=== PATIENT | female | born 1935 | race Caucasian/White ===

== ENCOUNTER 2017-05-11 10:50 | Inpatient (IN) | payer MEDICARE, BC ==
[~2017-05-11] VITALS: Ht 165.1 cm; Wt 96.4 kg
[~2017-05-11 10:50] MED LIST: ASPI-799 PO; ATOR40TA21 PO; CHOL500010 PO; GLUC1CAP40 PO; LAS20 PO; PARI1CAP7 PO; PIOG15TA12 PO; POTA10TA97 PO; VALS80TA2 PO
[2017-05-11] MEDS ORDERED: FUROSEMIDE 40 MG INJ IV STA (11:21)
[2017-05-11] MEDS ORDERED: NITROGLYCERIN 2% 1 GM OINT PKT TD STA (11:21)
[2017-05-11] MEDS: ASPIRIN 81 MG TAB PO ONE ×2 (11:58→12:12)
[2017-05-11 12:01] LABS: ABNORMAL IP MESSAGE 1; BASOPHIL # 0.1 10^3/ul (0.0-0.1); BASOPHILS % 0.4 % (0.0-2.0); EOSINOPHILS # 0.1 10^3/ul (0.0-0.5); EOSINOPHILS % 0.6 % (0.0-7.0); HEMATOCRIT 26.3 % (37.0-47.0); HEMOGLOBIN 8.4 g/dl (12.0-16.0); LYMPHOCYTES # 0.5 10^3/ul (0.8-2.9); LYMPHOCYTES % 4.6 % (15.0-51.0); MEAN CORPUSCULAR HGB CONC 31.9 g/dl (32.0-37.0); MONOCYTES % 8.8 % (0.0-11.0); NEUTROPHIL # 9.9 10^3/ul (1.6-7.5); PLATELET COUNT 237 10^3/UL (140-415); RED BLOOD COUNT 2.71 10^6/ul (4.20-5.40); RED CELL DISTRIBUTION WIDTH 14.5 % (11.5-14.5); WHITE BLOOD COUNT 11.8 10^3/ul (4.8-10.8)
[2017-05-11] MEDS ORDERED: VALS160T20 PO (12:09)
[2017-05-11] MEDS ORDERED: ALLO100T PO (12:09)
[2017-05-11] MEDS ORDERED: ADV25050 INHALATION (12:10)
[2017-05-11] MEDS ORDERED: CHOL100062 PO (12:10)
[2017-05-11 12:15] LABS: INR 1.27; PT RATIO 1.3
[2017-05-11 12:16] LABS: PARTIAL THROMBOPLASTIN TIME 43.5 Sec (25.0-35.0)
[2017-05-11 12:20] LABS: CREATININE 3.01 mg/dl (0.44-1.00); POTASSIUM 4.4 mmol/L (3.5-5.1)
[2017-05-11 12:32] LABS: TROPONIN-I 0.015 ng/ml (0.00-0.12)
--- NOTE | 2017-05-11 13:07 | RADRPT ---
PROCEDURE: XR Chest. CLINICAL INDICATION: Shortness of breath TECHNIQUE: Single portable view of the chest was obtained COMPARISON: No priors for comparison FINDINGS: The trachea is slightly deviated towards of the right. The cardiac silhouette is enlarged. There are bilateral chronic lung changes. Right lower lobe opacification is noted with probable small right p leural effusion. Soft tissue density enlargement of right perihilar region and right cardiac border is noted. Bilateral breast implants are noted. IMPRESSION: 1. Cardiomegaly and prominence of the right hilar region and right pericardial region. There may be underlying atrial enlargement. Consider follow-up CT scan of the chest. 2. Right lower lobe opacification; pneumonia versus atelectasis and small right pleural effusion. RPTAT: AAPP Physician Felipa Date Time Electronically viewed and signed by Physician Felipa on 05/11/2017 13:06 SAMUEL/
[2017-05-11] MEDS ORDERED: ONDANSETRON 4 MG INJ IV PRN (13:30)
[2017-05-11] MEDS ORDERED: ACETAMINOPHEN 325 MG TAB PO PRN (13:30)
[2017-05-11] MEDS ORDERED: CEFTRIAXONE 1 GM/50 ML (PMX) 50 ML IVPB ONE (13:30)
--- NOTE | 2017-05-11 13:40 | ERD ---
ER Documentation Chief Complaint Chief Complaint SOB [id number] S/P FLU VACCINE HPI Patient is an 82-year-old female with anemia, hypertension, and diabetes who presents with shortness of breath. She was brought in by ambulance. She said that she get a flu shot 2 weeks ago and ever since then she has gotten worse. She saw her primary doctor on Sunday who wanted her to get a chest x-ray but she has not gotten a chest x-ray as of yet. Her hemoglobin was 8.8 at that time. She has a history of a cardiac stent and had an EKG done that day but her EKG was okay per the doctor. The patient was told she has a UTI but was not given antibiotics as of yet. The patient is speaking in full sentences but says that she is always tired and gets short of breath with even minimal exertion like walking a few steps. Upon review of old medical records the patient one previous visit to the ER in 2012. ROS All systems reviewed and are negative except as per history of present illness. Medications Home Meds Reported Medications Cholecalciferol* (Vitamin D3*) 1,000 Unit Tablet, 1000 UNIT PO DAILY, TAB 05/11/17 Salmeterol Xinaf/Fluticasone* (Advair*) 250-50 Diskus Inhaler, 1 INH INHALATION BID, #1 INHALER 05/11/17 Valsartan* (Diovan*) 160 Mg Tablet, 160 MG PO DAILY, TAB 05/11/17 Allopurinol* (Allopurinol*) 100 Mg Tablet, 100 MG PO DAILY, TAB 05/11/17 Furosemide (Lasix) 20 Mg Tab, 20 MG PO DAILY 10/20/12 Aspirin/Calcium Carbonate/Mag (Aspir-Mox 325 Mg Tablet) 325 Mg Tablet, 325 MG PO DAILY 10/20/12 Atorvastatin (Lipitor) 40 Mg Tablet, 40 MG PO DAILY 10/20/12 Pioglitazone Hcl* (Actos*) 15 Mg Tablet, 15 MG PO DAILY 10/20/12 Discontinued Reported Medications Paricalcitol* (Zemplar*) 1 Mcg Cap, 1 MCG PO DAILY 10/20/12 Cholecalciferol (Vitamin D3) 5,000 Unit Tablet, 5000 UNIT PO DAILY 10/20/12 Potassium Chloride (Klor-Con) 10 Meq Tablet.sa, 10 MEQ PO DAILY 10/20/12 Glucosa Welsh 2KCL/Chondroitin Welsh (Glucosamine & Chondroitin Cap) 1 Cap Capsule, 1 CAP PO DAILY 10/20/12 Valsartan* (Diovan*) 80 Mg Tablet, 240 MG PO DAILY 10/20/12 Allergies Allergies: Coded Allergies: Sulfa (Sulfonamide Antibiotics) (Verified Allergy, Intermediate, RASH, ) clopidogrel (Verified Allergy, Unknown, 05/11/17) vancomycin (Verified Allergy, Unknown, 05/11/17) PMhx/Soc History of Surgery: Yes (SHOULDER FRACTURE, TITANIUM IN R ELBOW) Anesthesia Reaction: No Hx Neurological Disorder: No Hx Respiratory Disorders: Yes (ASTHMA) Hx Cardiac Disorders: Yes (HTN, STENT, WIDOWERS SYNDROME, ) Hx Psychiatric Problems: No Hx Miscellaneous Medical Probl: Yes (DM, ) Hx Alcohol Use: No Hx Substance Use: No Hx Tobacco Use: No Smoking Status: Never smoker FmHx Family History: diabetes Physical Exam Vitals Vital Signs Date Time Temp Pulse Resp B/P Pulse Ox O2 Delivery O2 Flow Rate FiO2 05/11/17 12:30 88 18 103/87 97 Room Air 05/11/17 11:25 Nasal Cannula 2.0 05/11/17 11:25 Nasal Cannula 2 05/11/17 11:15 98.7 90 22 108/85 99 Physical Exam Const: Moderate distress Head: Atraumatic Eyes: Normal Conjunctiva ENT: Normal External Ears, Nose and Mouth. Neck: Full range of motion..~ No meningismus. Resp: Decreased breath sounds bilaterally Cardio: Regular rate and rhythm, no murmurs Abd: Soft, non tender, non distended. Normal bowel sounds Skin: No petechiae or rashes Back: No midline or flank tenderness Ext: 3+ pitting edema bilaterally Neur: Awake and alert Psych: Normal Mood and Affect Result Diagram: 05/11/17 1150 05/11/17 1150 Results 24 hrs Laboratory Tests Test 05/11/17 11:50 White Blood Count 11.810^3/ul Red Blood Count 2.7110^6/ul Hemoglobin 8.4g/dl Hematocrit 26.3% Mean Corpuscular Volume 97.0fl Mean Corpuscular Hemoglobin 31.0pg Mean Corpuscular Hemoglobin Concent 31.9g/dl Red Cell Distribution Width 14.5% Platelet Count 39055^3/UL Mean Platelet Volume 12.0fl Neutrophils % 84.0% Lymphocytes % 4.6% Monocytes % 8.8% Eosinophils % 0.6% Basophils % 0.4% Nucleated Red Blood Cells % 0.0/100WBC Neutrophils # 9.910^3/ul Lymphocytes # 0.510^3/ul Monocytes # 1.010^3/ul Eosinophils # 0.110^3/ul Basophils # 0.110^3/ul Nucleated Red Blood Cells # 0.010^3/ul Prothrombin Time 16.0Sec Prothrombin Time Ratio 1.3 INR International Normalized Ratio 1.27 Activated Partial Thromboplast Time 43.5Sec Sodium Level 137mmol/L Potassium Level 4.4mmol/L Chloride Level 101mmol/L Carbon Dioxide Level 22mmol/L Anion Gap 18 Blood Urea Nitrogen 85mg/dl Creatinine 3.01mg/dl Glucose Level 145mg/dl Calcium Level 9.0mg/dl Troponin I 0.015ng/ml B-Type Natriuretic Peptide 2950PG/ML Current Medications Medications (Trade) Dose Ordered Sig/John Route PRN Reason Start Time Stop Time Status Last Admin Dose Admin Furosemide (Lasix) 40 mg ONCE STAT IV 05/11/17 11:21 05/11/17 11:24 DC 05/11/17 11:58 Aspirin (Aspirin) 162 mg ONCE ONCE PO 05/11/17 11:30 05/11/17 11:31 DC Nitroglycerin (Nitroglycerin 2% Oint) 1 inch ONCE STAT TD 05/11/17 11:21 05/11/17 11:24 DC 05/11/17 11:58 Ondansetron HCl (Zofran Inj) 4 mg ER BRIDGE PRN IV NAUSEA AND/OR VOMITING 05/11/17 13:30 05/12/17 13:29 Acetaminophen 650 mg 650 mg ER BRIDGE PRN PO MILD PAIN/FEVER 05/11/17 13:30 05/12/17 13:29 Ceftriaxone Sodium (Rocephin) 50 ml @ 100 mls/hr ONCE ONCE IVPB 05/11/17 13:30 05/11/17 13:59 05/11/17 13:30 Procedures/MDM Chest x-ray shows pneumonia versus pleural effusion per radiology. EKG read by me: Rate/Rhythm: Regular rate and rhythm at a normal rate Intervals: Normal Impression: No evidence of ischemia or arrhythmia Patient is a 82-year-old female presents with shortness of breath with minimal exertion. Her lung sounds are decreased and she has bilateral lower extreme knee swelling and her symptoms are most consistent with acute congestive heart failure. Her BNP is elevated as well going along with this diagnosis. She has anemia with a hemoglobin of 8.4 but does not require transfusion at this time. She says that she does have a history of kidney disease and her BUN and creatinine are 85 and 3.01. I doubt pneumonia at this time. The patient was given Lasix IV and aspirin by mouth. The patient will be admitted to the care of Dr. Esposito from the panel team to a telemetry bed. Departure Diagnosis: Primary Impression: CHF exacerbation Congestive heart failure type: unspecified congestive heart failure type Qualified Code: I50.9 - Acute on chronic congestive heart failure, unspecified congestive heart failure type Additional Impressions: Shortness of breath Cystitis Condition: ASHLY Veliz MD May 11, 2017 13:40
[2017-05-11 14:02] VITALS: BP 94/50; RESP 16
[2017-05-11 14:07] VITALS: PULSE 81
[2017-05-11 14:43] LABS: ADD UMIC YES; UR ASCORBIC ACID NEGATIVE (NEGATIVE); UR BACTERIA FEW /HPF (NONE SEEN); UR BILIRUBIN (Dip) NEGATIVE (NEGATIVE); UR BLOOD (Dip) NEGATIVE (NEGATIVE); UR BUDDING YEAST FEW /HPF (NONE SEEN); UR CLARITY CLOUDY (CLEAR); UR COLOR AMBER (YELLOW); UR GLUCOSE (Dip) NEGATIVE (NEGATIVE); UR KETONES (Dip) NEGATIVE (NEGATIVE); UR LEUKOCYTE ESTERASE (Dip) 2+ Leu/ul (NEGATIVE); UR MUCUS FEW /HPF (NONE SEEN); UR NITRITE (Dip) NEGATIVE (NEGATIVE); UR RBC 1 /HPF (0-5); UR SPECIFIC GRAVITY (Dip) 1.015 (1.003-1.030); UR SQUAMOUS EPITHELIAL CELL FEW /HPF (FEW); UR TOTAL PROTEIN (Dip) 2+ mg/dl (NEGATIVE); UR UROBILINOGEN (Dip) 2+ mg/dL (NEGATIVE)
--- NOTE | 2017-05-11 15:06 | HP ---
Date/Time of Note Date/Time of Note DATE: 05/11/17 TIME: 14:56 Assessment/Plan VTE Prophylaxis VTE Prophylaxis Intervention: heparin, LMWH Lines/Catheters IV [facility] Saline Lock Urinary Cath still in place: No Assessment/Plan Chief Complaint/Hosp Course 82 yo female with h/o chronic systlolic CHF, CKD II, MDS, DMII, obesity with acute systolic CHF exacerbation, BIRGIT and pericardial effusion with pre-[facility] report concerning for tamponade CHF: - Patient is grossly overloaded but will hold further diuretics until tamponade is excluded - Dr Castillo consulted Pericardial effusion: - Likely from total body overload, but perhaps this is pericarditis, seems to have had a viral prodrome - Less likely rheumatologic or malignant, but certainly considerations. 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 Shortly thereafter she developd flu like symptosm with cough, congestion, body aches. These symptoms have gradually subsided but she has developed progressive edema and SOB since then. She is cared for in the [facility] system and had outpatient CXR ordered there, however today was so SOB she called 911 and was taken here. SOB is present on ambulation but generally feels well at rest. No CP or angina. No cough or sputum production. PMH/Family/Social Past Medical History Medical History: congestive heart failure, coronary artery disease, diabetes Family History Significant Family History: heart disease Social History Alcohol Use: none Smoking Status: Never smoker Drug Use: none Exam/Review of Systems Vital Signs Vitals Vital Signs Date Time Temp Pulse Resp B/P Pulse Ox O2 Delivery O2 Flow Rate FiO2 05/11/17 12:30 88 18 103/87 97 Room Air 05/11/17 11:25 2.0 05/11/17 11:15 98.7 Exam Exam Comfortable appearing, NAD, AOx3 Very talkative, no respiratory distress CV: RRR, ++ JVD Lungs clear Abdomen obese, soft, nt R knee surgical scar Legs with edema to calves bl Labs Result Diagram: 05/11/17 1150 05/11/17 1150 Medications Medications Current Medications Ceftriaxone Sodium (Rocephin) 50 ml @ 100 mls/hr ONCE ONCE IVPB Last administered on 05/11/17t 13:30; Admin Dose 100 MLS/HR; Start 05/11/17 at 13: 30; Stop 05/11/17 at 13:59 TAWANA DALY MD May 11, 2017 15:06
[2017-05-11 15:13] VITALS: BP 101/65; RESP 16
[2017-05-11] MEDS ORDERED: NACL 0.9% 3 ML SYG IV SCH (15:30)
--- NOTE | 2017-05-11 16:17 | RADRPT ---
Echocardiogram Report Patient Name: MIKA TAMAYO Gender: Female Date: 1935 Study Date: 11-May-2017 Short Goods Drier: Amena [facility] Location: 522-A Ref. Physician: TAWANA DALY Quality: Technically Difficult Study Procedures: Transthoracic echocardiogram with complete 2D, M-Mode, and doppler examination. Indications: Congestive Heart Failure. 2D/M Mode Doppler Measurement Value Normal Ranges Measurement Value Normal Ranges LVIDd 2D 4.1 3.5 - 5.6 cm AV Peak Nguyễn 1.5 m/sec LVIDs 2D 2.7 2.1 - 4.1 cm AV Peak PG 9.0 mmHg FS 2D 32.9 % LVOT Peak Nguyễn 1.5 m/sec LVPWd 2D 1.4 0.6 - 1.1 cm LVOT Peak PG 8.0 mmHg IVSd 2D 1.4 0.6 - 1.1 cm MV E Peak Nguyễn 0.8 m/sec IVS/LVPW 2D 1.0 MV A Peak Nguyễn 1.1 m/sec AoR Diam 2D 2.7 2.0 - 3.7 cm MV E/A 0.7 LA/Ao 2D 1 0 - 1 MV Decel Time 211 msec EDV 2D 67.4 cm3 MV E/A 0.7 ESV 2D 20.3 cm3 TR Peak Nguyễn 2.0 m/sec LA Dimen 2D 4.0 2.3 - 4.0 cm TR Peak PG 16.0 mmHg RVSP 31.0 mmHg Findings Left Ventricle: Normal left ventricular systolic function. Normal left ventricular cavity size. Mild concentric left ventricular hypertrophy. Ejection fraction is visually estimated at 6065 %. Abnormal Diastolic Function. Right Ventricle: Not well visualized. Left Atrium: The left atrium is normal in size. Right Atrium: The right atrium is normal in size. Mitral Valve: Mild mitral leaflet calcification. Mild mitral annular calcification. Trace mitral regurgitation. Aortic Valve: No significant aortic stenosis or insufficiency. Aortic valve not well visualized. Tricuspid Valve: Normal appearance of the tricuspid valve. Estimated peak PA systolic pressure 31 mmHg. There is mild tricuspid regurgitation. Pulmonic Valve: Pulmonic valve not well visualized. There is trace pulmonic regurgitation. Pericardium: Moderate to large pericardial effusion. Dilated IVC with decreased respiratory variation consistent with elevated right atrial pressure. Aorta: Normal aortic root. IVC: Dilated inferior vena cava with poor inspiratory collapse consistent with elevated right atrial pressures. Conclusions 1.Normal left ventricular systolic function. Normal left ventricular cavity size. Mild concentric left ventricular hypertrophy. Ejection fraction is visually estimated at 60-65 %. Abnormal Diastolic Function. 2.Mild mitral leaflet calcification. Mild mitral annular calcification. Trace mitral regurgitation. 3.Normal appearance of the tricuspid valve. Estimated peak PA systolic pressure 31 mmHg. There is mild tricuspid regurgitation. 4.Pulmonic valve not well visualized. There is trace pulmonic regurgitation. 5.Moderate to large pericardial effusion. Dilated IVC with decreased respiratory variation consistent with elevated right atrial pressure. 6.On limited images patient with possible late diastolic RA invagination which is an early sign of echo tamponade. Electronically Signed By: Gibran Castillo 11-May-2017 16:16:24 -0700 Patient Name: MIKA TAMAYO Study Date: 11-May-2017 [id number]
[2017-05-11 16:49] VITALS: PULSE 79
[2017-05-11 17:00] VITALS: Ht 165.1 cm; Wt 96.4 kg
--- NOTE | 2017-05-11 18:00 | RADRPT ---
PROCEDURE: Renal US. CLINICAL INDICATION: Renal dysfunction. TECHNIQUE: Multiple sonographic images of the kidneys and urinary bladder were obtained. The imag es were reviewed on a PACS workstation. COMPARISON: No prior studies are available for comparison. FINDINGS: The right kidney measures 9.1 x 5.3 x 5.3 cm. The left kidney measures 10.5 x 4.9 x 5.2 cm. There is no solid renal mass. There are benign left renal cysts with the largest measuring 3.7 x 3.4 x 3.9 cm. There is no hydronephrosis. There is no renal calculus. Renal parenchymal thickness is normal bilaterally. Echogenicity is normal bilaterally. The perirenal regions are normal with no fluid collection or mass. The urinary bladder is not visualized. IMPRESSION: 1. Benign left renal cysts. 2. No hydronephrosis. 3. Urinary bladder is not visualized. 4. Otherwise unremarkable study. RPTAT: QQ .Felipe Salinas MD, Date Time Electronically viewed and signed by .Felipe Salinas MD, on 05/11/2017 18:00 .R/
[2017-05-11 19:09] LABS: CK-MB 0.9 ng/ml (0.0-2.4); TROPONIN-I 0.017 ng/ml (0.00-0.12)
[2017-05-11 20:00] VITALS: PULSE 86
[2017-05-11 20:25] VITALS: BP 109/58; RESP 18
[2017-05-11] MEDS: HEPARIN 5,000 UNIT/0.5 ML VIAL SC SCH (22:00)
[2017-05-11] MEDS: HYDROCODONE/APAP (5/325) TAB PO PRN (23:00)
[2017-05-12] VITALS (10 sets, daily range): BP systolic 98–118; BP diastolic 53–60; PULSE 70–95; RESP 16–20
--- NOTE | 2017-05-12 00:54 | CONS ---
DATE OF ADMISSION: 05/11/2017 DATE OF CONSULTATION: 05/11/2017 REASON FOR CONSULTATION: Pericardial effusion, shortness of breath, assess significance. REQUESTING PHYSICIAN: Dr. Taylor from the hospitalist service. HISTORY OF PRESENT ILLNESS: Ms. Klein is an 82-year-old female with a history of congestive heart f ailure, systolic by chart biopsy, chronic kidney disease not on dialysis, myelodysplastic syndrome, diabetes mellitus, obesity who presents with complaints of worsening shortness of breath. The constantino grover states she has received the flu shot and approximately 3 weeks later and since that time has had multiple joint aches and shortness of breath, and worsening. The patient subsequently presented her e to the emergency department. Upon arrival, temperature 98.7, blood pressure 108/85, pulse 96.2, s aturating 99%. The patient's labs revealed sodium 137, potassium 4.4, creatinine of 3, BUN of 85. BNP of 2950. INR 1.27. White count 11.8, hemoglobin 8.4, platelet count 237. UA positive. The rajan steinberg underwent a chest x-ray revealing cardiomegaly and prominence of the right hilar region and ri ght pericardial region, right lower lobe opacification. The patient's electrocardiogram revealed no rmal sinus rhythm at 87 with low voltage throughout, nonspecific ST and T-wave abnormalities. Constantino grover has been admitted to floor and had a prelim echo that was noted to have a significant effusion; t herefore, cardiology consultation requested. PAST MEDICAL HISTORY: As above in HPI. MEDICATIONS CURRENTLY IN HOSPITAL: 1. Heparin 5000 subQ q.8. 2. Ambien p.r.n. 3. Rutledge p.r.n. ALLERGIES: 1. SULFA. 2. PLAVIX. 3. VANCOMYCIN. SOCIAL HISTORY: No tobacco, ETOH or illicit drug use. FAMILY HISTORY: No history of cardiac or early CAD. REVIEW OF SYSTEMS: As above in HPI. CONSTITUTIONAL: No fevers, chills. PULMONARY: Shortness of breath. CARDIOVASCULAR: Congestive heart failure and pericardial effusion in. GASTROINTESTINAL: No vomiting. GENITOURINARY: Renal failure. PSYCHIATRIC: No documented psych history. NEUROLOGIC: No documented CVA. ENDOCRINE: Diabetes mellitus. PHYSICAL EXAMINATION: VITAL SIGNS: Temperature 98.7, blood pressure 101/65, pulse 75, respirations 16, saturating 96%. GENERAL: The patient is alert, awake, complaining of mild shortness of breath. NECK: JVP approximately 10 cm of water. CHEST: Decreased breath sounds at the bases bilaterally, right greater than left. HEART: Regular rate and rhythm. Normal S1, S2, I/ systolic murmur, nondisplaced PMI. ABDOMEN: Positive bowel sounds, soft, obese. EXTREMITIES: 3+ edema bilaterally. Difficult to palpate distal pulses bilaterally likely due to ed deirdre. LABORATORY DATA: As above in HPI. No further labs for my review at this time. IMAGING STUDIES: As above in HPI. No further imaging studies for my review at this time. ECG: As above in HPI. No further electrocardiograms for my review at this time. IMPRESSION: 1. Pericardial effusion by 2D echo to assess significance. 2. Shortness of breath, likely a combination of possible pneumonia as well as volume overload, edgar estive heart failure and pericardial effusion. 3. Hypertension, borderline. 4. Abnormal electrocardiogram with low voltage consistent with the patient's pericardial effusion. 5. Generalized body aches, question viral syndrome. 6. Diabetes mellitus. 7. Renal failure, acute on chronic. 8. Anemia. 9. Leukocytosis. 10. Urinary tract infection. RECOMMENDATIONS: 1. At this time, would maintain patient on telemetry monitoring to follow rhythm and rate control c losely. 2. We will review the patient's 2D echo to assess for significant effusion and need for pericardioc entesis. 3. Would consult nephrology, possible need for dialysis, possible it could be uremic infusion. It looks like it possibly could be due to any type of viral syndrome and subsequent pericarditis. The patient is not really giving me symptoms for that, and additionally, the patient could be having a a utoimmune syndrome with general multiple muscle aches and pericardial effusion. 4. Would likely resume the patient's Lasix diuresis, but follow creatinine closely. 5. Will complete a rule out for myocardial infarction to ensure this patient's shortness of breath is not due to any acute coronary syndrome versus acute myocardial infarction with patient saying chetna t she has had prior stenting 10 years prior. 6. Follow the patient's blood pressure closely. 7. Would consider initiation of antibiotics for treatment of possible pneumonia and check culture d jacobo. Thanks for letting me take part in the care of this patient. I will continue to follow very closely with you with further recommendations to be made as the patient progresses through her inpatient ho spital clinical course. Dictated By: JOSLYN FAIRBANKS/DEBORAH Conf#: [id number] DID#: [id number] CC: HIEU WATSON MD;*EndCC*
[2017-05-12] MEDS: ALBUTEROL/IPRATROPIUM (NEB) 3 ML AMP HHN PRN ×2 (01:00→20:13)
[2017-05-12 01:37] LABS: CK-MB 1.15 ng/ml (0.0-2.4); TROPONIN-I 0.017 ng/ml (0.00-0.12)
[2017-05-12] MEDS: HEPARIN 5,000 UNIT/0.5 ML VIAL SC SCH ×3 (06:05→21:35)
[2017-05-12 06:53] LABS: BASOPHIL # 0.1 10^3/ul (0.0-0.1); BASOPHILS % 0.5 % (0.0-2.0); EOSINOPHILS # 0.2 10^3/ul (0.0-0.5); EOSINOPHILS % 1.8 % (0.0-7.0); HEMATOCRIT 23.7 % (37.0-47.0); HEMOGLOBIN 7.3 g/dl (12.0-16.0); LYMPHOCYTES # 0.9 10^3/ul (0.8-2.9); LYMPHOCYTES % 9.1 % (15.0-51.0); MEAN CORPUSCULAR HGB CONC 30.8 g/dl (32.0-37.0); MEAN CORPUSCULAR VOLUME 97.5 fl (82.0-101.0); MEAN PLATELET VOLUME 11.8 fl (7.4-10.4); MONOCYTE # 0.9 10^3/ul (0.3-0.9); NEUTROPHILS % 78.2 % (39.0-77.0); PLATELET COUNT 142 10^3/UL (140-415); RED BLOOD COUNT 2.43 10^6/ul (4.20-5.40); RED CELL DISTRIBUTION WIDTH 14.5 % (11.5-14.5); WHITE BLOOD COUNT 10.2 10^3/ul (4.8-10.8)
[2017-05-12] MEDS ORDERED: GUAIFENESIN/DM 5ML CUP PO ONE (07:00)
[2017-05-12 07:40] LABS: IRON 28 ug/dl (35-150)
[2017-05-12 07:43] LABS: ALBUMIN 3.3 g/dl (3.3-4.9); BILIRUBIN,INDIRECT 0.2 mg/dl (0-1.1); BILIRUBIN,TOTAL 0.2 mg/dl (0.2-1.3); CREATININE 3.64 mg/dl (0.44-1.00); POTASSIUM 4.5 mmol/L (3.5-5.1); TOTAL PROTEIN 6.6 g/dl (6.1-8.1)
[2017-05-12 07:52] LABS: TOTAL IRON BINDING CAPACITY 219 ug/dl (241-421)
[2017-05-12 07:55] LABS: THYROID STIMULATING HORMONE 3.33 MIU/L (0.465-4.680)
[2017-05-12 08:00] LABS: T3 UPTAKE 39.6 % (23.5-40.5)
[2017-05-12] MEDS ORDERED: BUMETANIDE 1 MG TAB PO SCH ×2 (10:30→18:00)
[2017-05-12] MEDS ORDERED: ALBUMIN HUMAN 25% 100 ML IV STA (13:23)
[2017-05-12] MEDS ORDERED: FUROSEMIDE 40 MG INJ IV STA (13:23)
--- NOTE | 2017-05-12 13:31 | CONS ---
Date/Time of Note Date/Time of Note DATE: 05/12/17 TIME: 13:29 Assessment/Plan Assessment/Plan Additional Assessment/Plan 1. 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 acute CHF exacerbation, acute on chronic, Systolic and diastolic 3. 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 h/o HTN 5. H/o DM II 6. H/o HL 7. Anemia of CKD< with iron deficiency Plan: pt has acute Kidney injury on CKD with worsening uremia renal US c/w medical renal disease will give IV albumin + lasix for diuresis, pt is near term HD patient, currently concerned is that uremia is causing pericardial effusion and possible Temponade, She has been explaineda bout this and need of HD but she dose not want to have HD and she also cardiologiy to wait for pericardiocentesis, she wants to wait and see How Lasix and ALbumin duresis works. She has been explained about risks of heart arrythmisa snd she understood and verbalized undestanding if no improvement in Renal function by tomorrow AM then plan for HD initiaiton will consult for HD catheter Uric acid IV iron for anemia Uric acid with am labs Lasix 40mg iV BID with diuresis Thanks for consultation, we will conitnue to follow up on patient Consultation Date/Type/Reason Admit Date/Time 05/12/2017 Date of Consultation: May 12, 2017 Type of Consultation: NEPHROLOGY Reason for Consultation Acute uremia, Worsening renal failure, fluid overload, uremia, with moderate pericardial effusion Referring Provider: TAWANA DALY MD Hx of Present Illness 82 yo female with h/o chronic systlolic CHF, CKD II, MDS, DMII, obesity with acute systolic CHF exacerbation, BIRGIT and pericardial effusion with pre-[facility] report concerning for tamponade, pt is noted to have elevated BUN and Creatinine and conerned about pericardial effusion due to uremia.BUN 101. Renal has been consulted for it. Constitutional: no complaints Eyes: no complaints ENT: congestion Respiratory: pleuritic pain, shortness of breath Cardiovascular: no complaints Gastrointestinal: no complaints Genitourinary: no complaints Musculoskeletal: no complaints Skin: no complaints Neurologic: no complaints Endocrine: no complaints Lymphatic: no complaints Psychological: no complaints Past Medical History Medical History: congestive heart failure, coronary artery disease, diabetes Past Surgical History Past Surgical Hx: no surgical history Family History Significant Family History: no pertinent family hx Social History Alcohol Use: none Smoking Status: Never smoker Drug Use: none Exam/Review of Systems Vital Signs Vitals Vital Signs Date Time Temp Pulse Resp B/P Pulse Ox O2 Delivery O2 Flow Rate FiO2 05/12/17 12:11 70 05/12/17 11:17 97.7 18 98/54 97 05/12/17 08:00 Nasal Cannula 2.0 Intake and Output 05/11/17 05/11/17 05/12/17 15:00 23:00 07:00 Intake Total 320 ml 400 ml Output Total 300 ml 850 ml Balance 20 ml -450 ml Exam Constitutional: alert Psych: no complaints Head: normocephalic Eyes: nl conjunctiva ENMT: nl external ears & nose Neck: jvd, supple Respiratory: crackles/rales, diminished breath sounds Cardiovascular: edema, nl pulses, regular rate and rhythm Gastrointestinal: non-tender, other (non distended ), soft Musculoskeletal: muscle weakness, range of motion Extremities: calf tenderness Neurological: MACHINIST WOOD II-XII intact, nl mental status, nl speech, nl strength Results Result Diagram: 05/12/1712 05/12/17 0612 Results 24 hrs Laboratory Tests Test 05/11/17 18:17 05/12/17 00:23 05/12/17 06:12 Creatine Kinase 50 56 Creatine Kinase Index 1.8 2.1 Creatinine Kinase MB (Mass) 0.90 1.15 Troponin I 0.017 0.017 White Blood Count 10.2 Red Blood Count 2.43 L Hemoglobin 7.3 L Hematocrit 23.7 L Mean Corpuscular Volume 97.5 Mean Corpuscular Hemoglobin 30.0 Mean Corpuscular Hemoglobin Concent 30.8 L Red Cell Distribution Width 14.5 Platelet Count 142 # Mean Platelet Volume 11.8 H Neutrophils % 78.2 H Lymphocytes % 9.1 L Monocytes % 9.0 Eosinophils % 1.8 Basophils % 0.5 Nucleated Red Blood Cells % 0.0 Neutrophils # 8.0 H Lymphocytes # 0.9 Monocytes # 0.9 Eosinophils # 0.2 Basophils # 0.1 Nucleated Red Blood Cells # 0.0 Sodium Level 138 Potassium Level 4.5 Chloride Level 104 Carbon Dioxide Level 23 Anion Gap 16 Blood Urea Nitrogen 101 H Creatinine 3.64 H Glucose Level 131 Hemoglobin A1c 5.6 Calcium Level 9.0 Iron Level 28 L Total Iron Binding Capacity 219 L Percent Iron Saturation 13 L Ferritin 500.0 H Total Bilirubin 0.2 Direct Bilirubin 0.00 Indirect Bilirubin 0.2 Aspartate Amino Transf (AST/SGOT) 44 Alanine Aminotransferase (ALT/SGPT) 60 Alkaline Phosphatase 139 H Total Protein 6.6 Albumin 3.3 Globulin 3.30 H Albumin/Globulin Ratio 1.00 Thyroid Stimulating Hormone (TSH) 3.330 Free Thyroxine Index 2.38 Thyroxine (T4) 6.0 Triiodothyronine (T3) Uptake 39.6 Medications Medications Current Medications Heparin Sodium (Porcine) (Heparin (5000 Units/0.5 ml)) 5,000 unit Q8 SC Last administered on 05/12/17 06:05; Admin Dose 5,000 UNIT; Start 05/11/17 at 22: 00 Acetaminophen/ Hydrocodone Bitart ([place] (5/325)) 1 tab Q6H PRN PO MODERATE PAIN LEVEL 4-6 Last administered on 05/11/17 23:00; Admin Dose 1 TAB; Start 05/11/17 at 15:30 Zolpidem Tartrate (Ambien) 5 mg QHS PRN PO SLEEP; Start 05/11/17 at 15:30 PREM FISCHER MD May 12, 2017 13:31
--- NOTE | 2017-05-12 15:09 | CONS ---
Date/Time of Note Date/Time of Note DATE: 05/12/17 TIME: 15:01 Assessment/Plan Assessment/Plan Chief Complaint/Hosp Course IMPRESSION: 1. Pericardial effusion by 2D echo to assess significance-moderate by echo with some possible early echo tamponade features but no current clinical tamponade at this time. ? etiology concerning for uremic as BUN increasing 80 to greater than 100 vs viral/autoimmune 2. Shortness of breath, likely a combination of possible pneumonia as well as volume overload, congestive heart failure and pericardial effusion. 3. Hypotension-borderline 4. Abnormal electrocardiogram with low voltage consistent with the patient's pericardial effusion. 5. Generalized body aches, question viral syndrome. 6. Diabetes mellitus. 7. Renal failure, acute on chronic. 8. Anemia. 9. Leukocytosis. 10. Urinary tract infection. REcc: -Tele -Close monitoring of BP/HR -Agree with albumin infusion/trial of gentle lasix diuresis and thereafter possible intiation of HD as necessary -DVT prophylaxis but will decrase to BID so as not to convert effusion into hemm component -check urine cx and consider abx's -will check repeat echo 1-2 days to reassess effusion and need for any invasive treatment with pericardiocentesis Problems: Consultation Date/Type/Reason Admit Date/Time May 11, 2017 at 13:02 Initial Consult Date 05/12/17 Type of Consultation: cardiology Reason for Consultation pericardial effusion Referring Provider: TAWANA DALY MD Exam/Review of Systems Vital Signs Vitals Vital Signs Date Time Temp Pulse Resp B/P Pulse Ox O2 Delivery O2 Flow Rate FiO2 05/12/17 12:11 70 05/12/17 11:17 97.7 18 98/54 97 05/12/17 08:00 Nasal Cannula 2.0 Intake and Output 05/11/17 05/11/17 05/12/17 15:00 23:00 07:00 Intake Total 320 ml 400 ml Output Total 300 ml 850 ml Balance 20 ml -450 ml Exam Review of Systems: CONSTITUTIONAL: No fevers, chills. PULMONARY: mod sob CARDIOVASCULAR: No chest pain/palpitations GASTROINTESTINAL: No nausea/vomiting. GENITOURINARY: No hematuria/dysuria. MUSCULOSKELETAL: No myagias/arthalgias. PSYCHIATRIC: The patient denies depression. NEUROLOGIC: No weakness Constitutional: alert Psych: no complaints Head: normocephalic ENMT: mucosa pink and moist Neck: jvd (10 cm water), supple Respiratory: diminished breath sounds (at bases/B) Cardiovascular: regular rate and rhythm Gastrointestinal: non-tender, soft Musculoskeletal: muscle weakness (generalized) Extremities: pitting pedal edema (BIlateral) Neurological: other (No focal deficits) Results Result Diagram: 05/12/17 0612 05/12/17 0612 Results 24 hrs Laboratory Tests Test 05/11/17 18:17 05/12/17 00:23 05/12/17 06:12 Creatine Kinase 50 56 Creatine Kinase Index 1.8 2.1 Creatinine Kinase MB (Mass) 0.90 1.15 Troponin I 0.017 0.017 White Blood Count 10.2 Red Blood Count 2.43 L Hemoglobin 7.3 L Hematocrit 23.7 L Mean Corpuscular Volume 97.5 Mean Corpuscular Hemoglobin 30.0 Mean Corpuscular Hemoglobin Concent 30.8 L Red Cell Distribution Width 14.5 Platelet Count 142 # Mean Platelet Volume 11.8 H Neutrophils % 78.2 H Lymphocytes % 9.1 L Monocytes % 9.0 Eosinophils % 1.8 Basophils % 0.5 Nucleated Red Blood Cells % 0.0 Neutrophils # 8.0 H Lymphocytes # 0.9 Monocytes # 0.9 Eosinophils # 0.2 Basophils # 0.1 Nucleated Red Blood Cells # 0.0 Sodium Level 138 Potassium Level 4.5 Chloride Level 104 Carbon Dioxide Level 23 Anion Gap 16 Blood Urea Nitrogen 101 H Creatinine 3.64 H Glucose Level 131 Hemoglobin A1c 5.6 Calcium Level 9.0 Iron Level 28 L Total Iron Binding Capacity 219 L Percent Iron Saturation 13 L Ferritin 500.0 H Total Bilirubin 0.2 Direct Bilirubin 0.00 Indirect Bilirubin 0.2 Aspartate Amino Transf (AST/SGOT) 44 Alanine Aminotransferase (ALT/SGPT) 60 Alkaline Phosphatase 139 H Total Protein 6.6 Albumin 3.3 Globulin 3.30 H Albumin/Globulin Ratio 1.00 Thyroid Stimulating Hormone (TSH) 3.330 Free Thyroxine Index 2.38 Thyroxine (T4) 6.0 Triiodothyronine (T3) Uptake 39.6 Medications Medications Current Medications Heparin Sodium (Porcine) (Heparin (5000 Units/0.5 ml)) 5,000 unit Q8 SC Last administered on 05/12/17t 13:53; Admin Dose 5,000 UNIT; Start 10/20/17 at 22: 00 Acetaminophen/ Hydrocodone Bitart ([place] (5/325)) 1 tab Q6H PRN PO MODERATE PAIN LEVEL 4-6 Last administered on 05/11/17t 23:00; Admin Dose 1 TAB; Start 05/11/17 at 15:30 Zolpidem Tartrate (Ambien) 5 mg QHS PRN PO SLEEP; Start 05/11/17 at 15:30 JOSLYN HOWARD May 12, 2017 15:09
[2017-05-12] MEDS ORDERED: ALBUMIN HUMAN 25% 50 ML IV STA (15:17)
[2017-05-12] MEDS ORDERED: FUROSEMIDE 40 MG INJ IV ONE (15:30)
[2017-05-12] MEDS: CEFTRIAXONE 1 GM/50 ML (PMX) 50 ML IVPB SCH (16:07)
--- NOTE | 2017-05-12 17:10 | PN ---
Date/Time of Note Date/Time of Note DATE: 05/12/17 TIME: 17:08 Assessment/Plan VTE Prophylaxis VTE Prophylaxis Intervention: LMWH Lines/Catheters IV [facility] Saline Lock Urinary Cath still in place: No Assessment/Plan Chief Complaint/Hosp Course 82 yo female with h/o chronic diastolic CHF, CKD II, MDS, DMII, obesity with acute diastolic CHF exacerbation, BIRGIT and pericardial effusion with pre-[facility] report concerning for tamponade Acute on chronic diastolic CHF exacerbation: - Patient is grossly overloaded from cardiorenal syndrome: - Diuresis as needed - Dr Castillo consulted Pericardial effusion: - Likely from total body overload, but perhaps this is pericarditis, seems to have had a viral prodrome - Less likely rheumatologic or malignant, but certainly considerations. Will send ELLY, consider tap per cards - Monitor with improvemetnt in volume status CKD III now BIRGIT: - Renal US wnl MDS: - EPO weekly DMII: - AISS Telemetry monitoring Problems: Subjective 24 Hr Interval Summary Free Text/Dictation Minimal UOP to 2 PO bumex (lost IV access) Given albumin and lasix and a bit more diuresis Offered HD and pericardiocentesis but declines Exam/Review of Systems Vital Signs Vitals Vital Signs Date Time Temp Pulse Resp B/P Pulse Ox O2 Delivery O2 Flow Rate FiO2 05/12/17 16:05 85 05/12/17 11:17 97.7 18 98/54 97 05/12/17 08:00 Nasal Cannula 2.0 Intake and Output 05/11/17 05/11/17 05/12/17 15:00 23:00 07:00 Intake Total 320 ml 400 ml Output Total 300 ml 850 ml Balance 20 ml -450 ml Exam Constitutional: alert, oriented, well developed Psych: nl mood/affect, no complaints Head: atraumatic, normocephalic Eyes: EOMI, PERRL, nl conjunctiva, nl lids, nl sclera ENMT: nl external ears & nose, nl lips & teeth, nl nasal mucosa & septum Neck: non-tender, supple Respiratory: clear to auscultation, normal air movement Cardiovascular: nl pulses, regular rate and rhythm Gastrointestinal: nl liver, spleen, non-tender, soft Musculoskeletal: nl extremities to inspection, nl gait and stance Extremities: normal pulses Neurological: MEMORIAL DESIGNER II-XII intact, nl mental status, nl speech, nl strength Skin: nl turgor, No rash or lesions Lymph: nl lymph nodes Results Result Diagram: 05/12/1761105/12/17 0612 Results 24 hrs Laboratory Tests Test 05/11/17 18:17 05/12/17 00:23 05/12/17 06:12 Creatine Kinase 50 56 Creatine Kinase Index 1.8 2.1 Creatinine Kinase MB (Mass) 0.90 1.15 Troponin I 0.017 0.017 White Blood Count 10.2 Red Blood Count 2.43 L Hemoglobin 7.3 L Hematocrit 23.7 L Mean Corpuscular Volume 97.5 Mean Corpuscular Hemoglobin 30.0 Mean Corpuscular Hemoglobin Concent 30.8 L Red Cell Distribution Width 14.5 Platelet Count 142 # Mean Platelet Volume 11.8 H Neutrophils % 78.2 H Lymphocytes % 9.1 L Monocytes % 9.0 Eosinophils % 1.8 Basophils % 0.5 Nucleated Red Blood Cells % 0.0 Neutrophils # 8.0 H Lymphocytes # 0.9 Monocytes # 0.9 Eosinophils # 0.2 Basophils # 0.1 Nucleated Red Blood Cells # 0.0 Sodium Level 138 Potassium Level 4.5 Chloride Level 104 Carbon Dioxide Level 23 Anion Gap 16 Blood Urea Nitrogen 101 H Creatinine 3.64 H Glucose Level 131 Hemoglobin A1c 5.6 Calcium Level 9.0 Iron Level 28 L Total Iron Binding Capacity 219 L Percent Iron Saturation 13 L Ferritin 500.0 H Total Bilirubin 0.2 Direct Bilirubin 0.00 Indirect Bilirubin 0.2 Aspartate Amino Transf (AST/SGOT) 44 Alanine Aminotransferase (ALT/SGPT) 60 Alkaline Phosphatase 139 H Total Protein 6.6 Albumin 3.3 Globulin 3.30 H Albumin/Globulin Ratio 1.00 Thyroid Stimulating Hormone (TSH) 3.330 Free Thyroxine Index 2.38 Thyroxine (T4) 6.0 Triiodothyronine (T3) Uptake 39.6 Medications Medications Current Medications Acetaminophen/ Hydrocodone Bitart ([place] (5/325)) 1 tab Q6H PRN PO MODERATE PAIN LEVEL 4-6 Last administered on 05/11/17t 23:00; Admin Dose 1 TAB; Start 05/11/17 at 15:30 Zolpidem Tartrate (Ambien) 5 mg QHS PRN PO SLEEP; Start 05/11/17 at 15:30 Heparin Sodium (Porcine) 5000 unit 5,000 unit Q12 SC ; Start 05/12/17 at 21:00 Ceftriaxone Sodium (Rocephin) 50 ml @ 100 mls/hr Q24H IVPB Last administered on 05/12/17t 16:07; Admin Dose 100 MLS/HR; Start 05/12/17 at 15:30 TAWANA DALY MD May 12, 2017 17:10
[2017-05-12 18:56] LABS: CREATININE 3.71 mg/dl (0.44-1.00); POTASSIUM 5.2 mmol/L (3.5-5.1)
[2017-05-12 19:37] LABS: COMPLEMENT C3 144 mg/dl (88-165)
[2017-05-12 19:38] LABS: COMPLEMENT C4 > 60 mg/dl (14-44)
[2017-05-12] MEDS: HYDROCODONE/APAP (5/325) TAB PO PRN (20:42)
[2017-05-12] MEDS: ZOLPIDEM 5 MG TAB PO PRN (21:28)
[2017-05-13] VITALS (13 sets, daily range): BP systolic 83–125; BP diastolic 48–70; PULSE 70–100; RESP 17–20
--- NOTE | 2017-05-13 01:30 | HP ---
DATE OF ADMISSION: 05/11/2017 VASCULAR SURGERY CONSULTATION Dear Doctors: Ms. Klein is an 82-year-old female who presented with recent history of worsening acute on chronic r enal failure with fluid overload and shortness of breath. The patient at the moment is being evalua abeba by our cardiology and medical colleagues for further evaluation and medical optimization. [facility] surgical consultation was obtained for possibility of patient requiring dialysis in order to ass ist with her worsening fluid retention and fluid overload. At the moment, the patient does have adelaide rtness of breath, difficulty breathing secondary to her fluid overload. Denies nausea, vomiting, fe stanley or chills. Denies lower extremity rest pain. REVIEW OF SYSTEMS: A 14-point review performed and negative except what is mentioned in the HPI. PAST MEDICAL HISTORY: Entails chronic systolic congestive heart failure, chronic kidney disease sta ge III to IV, diabetes type 2, morbid obesity with BMI of 35.4, bilateral lower extremity venous ins ufficiency, pericardial effusion, anemia of chronic disease, coronary artery disease, hypercholester olemia. PAST SURGICAL HISTORY: None has been reported per patient. FAMILY HISTORY: Positive for coronary artery disease and hypertension. SOCIAL HISTORY: Denies tobacco, alcohol or illicit drug use. PHYSICAL EXAMINATION: GENERAL: She is alert and oriented x3. Some shortness of breath. HEENT: Normocephalic, atraumatic. EOMI, PERRLA. Mucosa moist. NECK: Supple. No carotid bruit. PULMONARY: Decreased breath sounds at bases with some crackles. CARDIOVASCULAR: S1, S2 present. No murmurs. ABDOMEN: Soft, nontender, nondistended. Bowel sounds positive. Large truncal obesity. EXTREMITIES: Lower extremities, difficult to palpate the femoral pulses secondary to body habitus. Nonpalpable pedal pulses secondary to edema. Motor and sensory intact. Cap refill 3 to 4 seconds. No ulcers identified. ASSESSMENT AND PLAN: 1. Bilateral lower extremity atherosclerosis: It seems the patient has some component of atheroscl erotic disease of the lower extremities with nonpalpable pedal pulses. At the moment, the patient d oes not have any ulcers or tissue loss. Will plan to follow up with the patient as an outpatient. 2. Chronic kidney disease stage III to IV; it seems the patient's renal function may have worsened. Will plan to discuss the findings with our nephrology colleagues for possible placement of a hemod ialysis catheter as needed to help assist with her current fluid retention and worsening renal funct ion. Discussed findings, plan and management with the patient, she understands. Optimize vascular status (BP meds, diet, nutrition, exercise, sugar control, antiplatelets). Thank you for allowing us to partake in the care of your patient. Please call with any questions. Dictated By: RORO GROVE/DEBORAH Conf#: [id number] DID#: [id number]
[2017-05-13] MEDS: ALBUTEROL/IPRATROPIUM (NEB) 3 ML AMP HHN PRN ×5 (01:41→21:41)
[2017-05-13] MEDS ORDERED: ALBUMIN HUMAN 25% 50 ML IV SCH (06:00)
[2017-05-13] MEDS ORDERED: FUROSEMIDE 40 MG INJ IV SCH (06:00)
[2017-05-13 08:05] LABS: BASOPHILS % 0.4 % (0.0-2.0); EOSINOPHILS % 0.3 % (0.0-7.0); HEMATOCRIT 23.1 % (37.0-47.0); LYMPHOCYTES # 0.7 10^3/ul (0.8-2.9); LYMPHOCYTES % 6.7 % (15.0-51.0); MEAN CORPUSCULAR HEMOGLOBIN 29.8 pg (29.0-33.0); MEAN CORPUSCULAR HGB CONC 30.3 g/dl (32.0-37.0); MEAN CORPUSCULAR VOLUME 98.3 fl (82.0-101.0); MEAN PLATELET VOLUME 11.7 fl (7.4-10.4); MONOCYTE # 0.8 10^3/ul (0.3-0.9); MONOCYTES % 8.4 % (0.0-11.0); NEUTROPHILS % 82.5 % (39.0-77.0); PLATELET COUNT 178 10^3/UL (140-415); RED BLOOD COUNT 2.35 10^6/ul (4.20-5.40); RED CELL DISTRIBUTION WIDTH 14.6 % (11.5-14.5); WHITE BLOOD COUNT 9.8 10^3/ul (4.8-10.8)
[2017-05-13 08:20] LABS: INR 1.36; PROTIME 16.8 Sec (12.2-14.2); PT RATIO 1.3
[2017-05-13 08:21] LABS: PARTIAL THROMBOPLASTIN TIME 41.9 Sec (25.0-35.0)
[2017-05-13 08:26] LABS: ALBUMIN 3.9 g/dl (3.3-4.9); ALBUMIN/GLOBULIN RATIO 1.34; BILIRUBIN,INDIRECT 0.1 mg/dl (0-1.1); BILIRUBIN,TOTAL 0.1 mg/dl (0.2-1.3); CALCIUM 8.7 mg/dl (8.4-10.2); CREATININE 4.48 mg/dl (0.44-1.00); POTASSIUM 5.3 mmol/L (3.5-5.1); TOTAL PROTEIN 6.8 g/dl (6.1-8.1)
[2017-05-13] MEDS: ALBUMIN HUMAN 25% 50 ML IV SCH ×2 (10:11→20:45)
[2017-05-13] MEDS: CITRIC ACID/NA CITRATE 30 ML CUP PO SCH ×3 (10:16→20:49)
[2017-05-13] MEDS: HEPARIN 5,000 UNIT/0.5 ML VIAL SC SCH ×2 (10:28→20:48)
[2017-05-13] MEDS: FUROSEMIDE 40 MG INJ IV SCH ×2 (10:56→21:58)
[2017-05-13] MEDS: SOD FERRIC GLUC COMPLX 125 MG in SOD CHLORIDE 0.9% 100 ML IVPB SCH (10:57)
--- NOTE | 2017-05-13 11:38 | CONS ---
Date/Time of Note Date/Time of Note DATE: 05/13/17 TIME: 11:37 Assessment/Plan Assessment/Plan Additional Assessment/Plan 1. 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 acute CHF exacerbation, acute on chronic, Systolic and diastolic 3. 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 h/o HTN 5. H/o DM II 6. H/o HL 7. Anemia of CKD< with iron deficiency Plan: pt has acute Kidney injury on CKD with worsening uremia renal US c/w medical renal disease on IV lasix + diuresis for Cardiorenal syndrome and CHF Pt BUN and Cr worsening with uremia, BUN 110- currently concerned is that uremia is causing pericardial effusion, She has been explained about this and need of HD but she dose not want to have HD and she also cardiologiy also recommended for pericardiocentesis, She refused to have both intervention and she wants to get transferred to [facility]. she has been explained about risks and complications of her decision including Heart arrythmias and possible . she understood and verbalized undestanding She was on list for permacath today but she refused to have it done and refused to initiate HD IV iron for anemia Uric acid with am labs student accounts manager has been informed about pt wish for transfer to [facility]. will follow up Consultation Date/Type/Reason Admit Date/Time May 11, 2017 at 13:02 Initial Consult Date 05/12/17 Type of Consultation: NEPHROLOGY Referring Provider: TAWANA DALY MD 24 HR Interval Summary Free Text/Dictation pt still requiring oxygen and c/o SOB, still leg edema 2 + Exam/Review of Systems Vital Signs Vitals Vital Signs Date Time Temp Pulse Resp B/P Pulse Ox O2 Delivery O2 Flow Rate FiO2 05/13/17 09:06 90 20 Nasal Cannula 3.0 32 05/13/17 08:01 98.2 109/51 98 Intake and Output 05/12/17 05/12/17 05/13/17 15:00 23:00 07:00 Intake Total 490 ml Output Total 295 ml Balance 195 ml Exam Constitutional: alert Respiratory: Bilateral crackles/rales, diminished breath sounds Cardiovascular: edema, nl pulses, regular rate and rhythm Gastrointestinal: non-tender, other (non distended ), soft Musculoskeletal: muscle weakness, range of motion, 2-3+ pitting edema Extremities: calf tenderness Neurological: STRAND GALVANIZER II-XII intact, nl mental status, nl speech, nl strength Results Result Diagram: 05/13/17 0709 05/13/17 0709 Results 24 hrs Laboratory Tests Test 05/12/17 17:59 05/13/17 07:09 Sodium Level 138 137 Potassium Level 5.2 H 5.3 H Chloride Level 101 100 Carbon Dioxide Level 20 L 20 L Anion Gap 22 H 22 H Blood Urea Nitrogen 110 H 115 H Creatinine 3.71 H 4.48 H Glucose Level 110 131 Calcium Level 9.0 8.7 Complement C3 144 Complement C4 > 60 H White Blood Count 9.8 Red Blood Count 2.35 L Hemoglobin 7.0 L Hematocrit 23.1 L Mean Corpuscular Volume 98.3 Mean Corpuscular Hemoglobin 29.8 Mean Corpuscular Hemoglobin Concent 30.3 L Red Cell Distribution Width 14.6 H Platelet Count 178 # Mean Platelet Volume 11.7 H Neutrophils % 82.5 H Lymphocytes % 6.7 L Monocytes % 8.4 Eosinophils % 0.3 Basophils % 0.4 Nucleated Red Blood Cells % 0.0 Neutrophils # 8.0 H Lymphocytes # 0.7 L Monocytes # 0.8 Eosinophils # 0.0 Basophils # 0.0 Nucleated Red Blood Cells # 0.0 Prothrombin Time 16.8 H Prothrombin Time Ratio 1.3 INR International Normalized Ratio 1.36 Activated Partial Thromboplast Time 41.9 H Total Bilirubin 0.1 L Direct Bilirubin 0.00 Indirect Bilirubin 0.1 Aspartate Amino Transf (AST/SGOT) 38 Alanine Aminotransferase (ALT/SGPT) 61 Alkaline Phosphatase 135 H Total Protein 6.8 Albumin 3.9 Globulin 2.90 Albumin/Globulin Ratio 1.34 Medications Medications Current Medications Acetaminophen/ Hydrocodone Bitart ([place] (5/325)) 1 tab Q6H PRN PO MODERATE PAIN LEVEL 4-6 Last administered on 05/12/17 20:42; Admin Dose 1 TAB; Start 05/11/17 at 15:30 Zolpidem Tartrate (Ambien) 5 mg QHS PRN PO SLEEP Last administered on 21:28; Admin Dose 5 MG; Start 05/11/17 at 15:30 Heparin Sodium (Porcine) 5000 unit 5,000 unit Q12 SC Last administered on 05/13 10:28; Admin Dose 5,000 UNIT; Start 05/12/17 at 21:00 Ceftriaxone Sodium 50 ml @ 100 mls/hr Q24H IVPB Last administered on 16:07; Admin Dose 100 MLS/HR; Start 05/12/17 at 15:30 Ferric Sodium Gluconate Complex/ Sodium Chloride (Ferrlecit/NS) 110 ml @ 110 mls/hr Q24H IVPB Last administered on 05/13/17 10:57; Admin Dose 110 MLS/HR; Start 05/13/17 at 10:00; Stop 05/17/17 at 10:59 Citric Acid/ Sodium Citrate 30 ml 30 ml TID PO Last administered on 05/13/17 10:16; Admin Dose 30 ML; Start 05/13/17 at 09:00 Albumin Human (Albumin Human 25%) 50 ml @ 100 mls/hr BID IV Last administered on 05/13/17 10:11; Admin Dose 100 MLS/HR; Start 05/13/17 at 09:00; Stop at 21:29 Furosemide (Lasix) 40 mg BID IV Last administered on 05/13/17 10:56; Admin Dose 40 MG; Start 05/13/17 at 09:00; Stop 05/14/17 at 21:01 PREM FISCHER MD May 13, 2017 11:38
--- NOTE | 2017-05-13 12:40 | PN ---
Date/Time of Note Date/Time of Note DATE: 05/13/17 TIME: 12:38 Assessment/Plan Lines/Catheters IV Catheter Type (from [facility]): Saline Lock Mar in Place (from [facility]): No Assessment/Plan Chief Complaint/Hosp Course - Bilateral lower extremity atherosclerosis: It seems the patient has some component of atherosclerotic disease of the lower extremities with nonpalpable pedal pulses. At the moment, the patient does not have any ulcers or tissue loss. Will plan to follow up with the patient as an outpatient. -Chronic kidney disease stage III to IV with acute on chronic renal failure: it seems the patient's renal function may have worsened and likely requiring hemodialysis. Patient refused for catheter placement today and would like to be transferred -Will follow as needed -Discussed findings, plan and management with the patient, she understands. -Optimize vascular status (BP meds, diet, nutrition, exercise, sugar control, antiplatelets). -Thank you for allowing us to partake in the care of your patient. Please call with any questions. Problems: Subjective 24 Hr Interval Summary patient refused perm catheter placement Exam/Review of Systems Vital Signs Vitals Vital Signs Date Time Temp Pulse Resp B/P Pulse Ox O2 Delivery O2 Flow Rate FiO2 05/13/17 12:05 98.6 70 17 112/70 97 05/13/17 09:06 Nasal Cannula 3.0 32 Intake and Output 05/12/17 05/12/17 05/13/17 15:00 23:00 07:00 Intake Total 490 ml Output Total 295 ml Balance 195 ml Exam Free Text/Dictation GENERAL: Alert and oriented x3. Shortness of breath. PULMONARY: Decreased breath sounds at bases with some crackles. CARDIOVASCULAR: S1, S2 present. ABDOMEN: Soft, nontender, nondistended. Bowel sounds positive. Large truncal obesity. EXTREMITIES: -Lower extremities, difficult to palpate the femoral pulses secondary to body habitus. Nonpalpable pedal pulses secondary to edema. Motor and sensory intact. Cap refill 3 to 4 seconds. No ulcers identified. Results Result Diagram: 05/13/17 0709 05/13/17 0709 RORO MARRERO MD May 13, 2017 12:40
--- NOTE | 2017-05-13 13:56 | PN ---
Date/Time of Note Date/Time of Note DATE: 05/13/17 TIME: 13:52 Assessment/Plan VTE Prophylaxis VTE Prophylaxis Intervention: heparin Lines/Catheters IV Catheter Type (from Nrs): Saline Lock Urinary Cath still in place: No Assessment/Plan Chief Complaint/Hosp Course 82 yo female with h/o chronic diastolic CHF, CKD II, MDS, DMII, obesity with acute diastolic CHF exacerbation, BIRGIT and pericardial effusion with pre-[facility]ova report concerning for tamponade Acute on chronic diastolic CHF exacerbation w pericardial effusion: - Likely from total body overload 2/2 cardiorenal syndrome. Ddx also includes pericarditis as seems to have had a viral prodrome. Less likely rheumatologic or malignant, but certainly considerations. Await ELLY. Patient has declined pericardiocentesis - Needs UF but declining all inteventinos - Continue diuretics if she is willing - Working on transfer to [facility] CKD III now BIRGIT from cardiorenal syndrome - Renal US wnl - Needs volume removal via HD though declines here MDS: - EPO per schedule DMII: - AISS Telemetry monitoring Problems: Subjective 24 Hr Interval Summary Free Text/Dictation The patient has been offered HD sessions as deemed medically necessary. She denies this and denies placement of an HD catheter. Requesting transfer to [facility]. Does not want any further treatment at this hospital. I have explained that her kidneys are failing and that she has fluid in her lungs and around her heart and these conditions are life threatening without dialysis. She understands these facts and despite this, still requests transfer to [facility]. Case management is working on transfer Exam/Review of Systems Vital Signs Vitals Vital Signs Date Time Temp Pulse Resp B/P Pulse Ox O2 Delivery O2 Flow Rate FiO2 05/13/17 13:45 88 20 Nasal Cannula 3.0 32 05/13/17 12:05 98.6 112/70 97 Intake and Output 05/12/17 05/12/17 05/13/17 15:00 23:00 07:00 Intake Total 490 ml Output Total 295 ml Balance 195 ml Results Result Diagram: 05/13/17 0709 05/13/17 0709 Results 24 hrs Laboratory Tests Test 05/12/17 17:59 05/13/17 07:09 Sodium Level 138 137 Potassium Level 5.2 H 5.3 H Chloride Level 101 100 Carbon Dioxide Level 20 L 20 L Anion Gap 22 H 22 H Blood Urea Nitrogen 110 H 115 H Creatinine 3.71 H 4.48 H Glucose Level 110 131 Calcium Level 9.0 8.7 Complement C3 144 Complement C4 > 60 H White Blood Count 9.8 Red Blood Count 2.35 L Hemoglobin 7.0 L Hematocrit 23.1 L Mean Corpuscular Volume 98.3 Mean Corpuscular Hemoglobin 29.8 Mean Corpuscular Hemoglobin Concent 30.3 L Red Cell Distribution Width 14.6 H Platelet Count 178 # Mean Platelet Volume 11.7 H Neutrophils % 82.5 H Lymphocytes % 6.7 L Monocytes % 8.4 Eosinophils % 0.3 Basophils % 0.4 Nucleated Red Blood Cells % 0.0 Neutrophils # 8.0 H Lymphocytes # 0.7 L Monocytes # 0.8 Eosinophils # 0.0 Basophils # 0.0 Nucleated Red Blood Cells # 0.0 Prothrombin Time 16.8 H Prothrombin Time Ratio 1.3 INR International Normalized Ratio 1.36 Activated Partial Thromboplast Time 41.9 H Total Bilirubin 0.1 L Direct Bilirubin 0.00 Indirect Bilirubin 0.1 Aspartate Amino Transf (AST/SGOT) 38 Alanine Aminotransferase (ALT/SGPT) 61 Alkaline Phosphatase 135 H Total Protein 6.8 Albumin 3.9 Globulin 2.90 Albumin/Globulin Ratio 1.34 Medications Medications Current Medications Acetaminophen/ Hydrocodone Bitart ([place] (5/325)) 1 tab Q6H PRN PO MODERATE PAIN LEVEL 4-6 Last administered on 05/12/17 20:42; Admin Dose 1 TAB; Start 05/11/17 at 15:30 Zolpidem Tartrate (Ambien) 5 mg QHS PRN PO SLEEP Last administered on 21:28; Admin Dose 5 MG; Start 05/11/17 at 15:30 Heparin Sodium (Porcine) 5000 unit 5,000 unit Q12 SC Last administered on 05/13 10:28; Admin Dose 5,000 UNIT; Start 05/12/17 at 21:00 Ceftriaxone Sodium 50 ml @ 100 mls/hr Q24H IVPB Last administered on 16:07; Admin Dose 100 MLS/HR; Start 05/12/17 at 15:30 Ferric Sodium Gluconate Complex/ Sodium Chloride (Ferrlecit/NS) 110 ml @ 110 mls/hr Q24H IVPB Last administered on 05/13/17 10:57; Admin Dose 110 MLS/HR; Start 05/13/17 at 10:00; Stop 05/17/17 at 10:59 Citric Acid/ Sodium Citrate 30 ml 30 ml TID PO Last administered on 05/13/17 13:41; Admin Dose 30 ML; Start 05/13/17 at 09:00 Albumin Human (Albumin Human 25%) 50 ml @ 100 mls/hr BID IV Last administered on 05/13/17 10:11; Admin Dose 100 MLS/HR; Start 05/13/17 at 09:00; Stop at 21:29 Furosemide (Lasix) 40 mg BID IV Last administered on 05/13/17 10:56; Admin Dose 40 MG; Start 05/13/17 at 09:00; Stop 05/14/17 at 21:01 TAWANA DALY MD May 13, 2017 13:56
--- NOTE | 2017-05-13 14:32 | CONS ---
Date/Time of Note Date/Time of Note DATE: 05/13/17 TIME: 14:22 Assessment/Plan Assessment/Plan Chief Complaint/Hosp Course IMPRESSION: 1. Pericardial effusion by 2D echo to assess significance-moderate by echo with some possible early echo tamponade features but no current clinical tamponade at this time. ? etiology concerning for uremic as BUN increasing 80 to greater than 100 vs viral/autoimmune. Patient currently refusing HD initiation and pericardiocentesis, stating that she wants to be transferred to where her regular doctors are located. Patient has been made aware of the risks of refusing theses therapies, from myself, the treating ammonia box tender Dr. Cabrera Villalba, and primary, Dr. Wynn including possible hemodynamic demise and /resp failure but still does not want the above therapies. 2. Shortness of breath, likely a combination of possible pneumonia as well as volume overload, congestive heart failure and pericardial effusion. 3. Hypotension-borderline 4. Abnormal electrocardiogram with low voltage consistent with the patient's pericardial effusion. 5. Generalized body aches, question viral syndrome. 6. Diabetes mellitus. 7. Renal failure, acute on chronic. 8. Anemia. 9. Leukocytosis. 10. Urinary tract infection. REcc: -Tele -Close monitoring of BP/HR -Continue albumin infusions -Caution with further lasix diuresis so as not to cause any hemodynamic compromise and thus would be very gentle -DVT prophylaxis - Would check urine cx and continue abx's -Possible pnding transfer to for further eval and treatment per patient request -will check repeat echo in AM to reassess effusion if patient remains in house Problems: Consultation Date/Type/Reason Admit Date/Time May 11, 2017 at 13:02 Initial Consult Date 05/12/17 Type of Consultation: cardiology Reason for Consultation Pericardial effusion Referring Provider: TAWANA WYNN MD Exam/Review of Systems Vital Signs Vitals Vital Signs Date Time Temp Pulse Resp B/P Pulse Ox O2 Delivery O2 Flow Rate FiO2 05/13/17 13:45 88 20 Nasal Cannula 3.0 32 05/13/17 12:05 98.6 112/70 97 Intake and Output 05/12/17 05/12/17 05/13/17 15:00 23:00 07:00 Intake Total 490 ml Output Total 295 ml Balance 195 ml Exam Review of Systems: CONSTITUTIONAL: No fevers, chills. PULMONARY: mod sob CARDIOVASCULAR: No chest pain/palpitations GASTROINTESTINAL: No nausea/vomiting. GENITOURINARY: No hematuria/dysuria. MUSCULOSKELETAL: No myagias/arthalgias. PSYCHIATRIC: The patient denies depression. NEUROLOGIC: No weakness Constitutional: alert, oriented Psych: no complaints Head: normocephalic ENMT: mucosa pink and moist Neck: jvd (9-10 cm water), supple Respiratory: diminished breath sounds (at bases/B) Cardiovascular: regular rate and rhythm Gastrointestinal: non-tender, soft Musculoskeletal: muscle weakness (mild generalized) Extremities: pitting pedal edema (Bilateral) Results Result Diagram: 05/13/17 0709 05/13/17 0709 Results 24 hrs Laboratory Tests Test 05/12/17 17:59 05/13/17 07:09 Sodium Level 138 137 Potassium Level 5.2 H 5.3 H Chloride Level 101 100 Carbon Dioxide Level 20 L 20 L Anion Gap 22 H 22 H Blood Urea Nitrogen 110 H 115 H Creatinine 3.71 H 4.48 H Glucose Level 110 131 Calcium Level 9.0 8.7 Complement C3 144 Complement C4 > 60 H White Blood Count 9.8 Red Blood Count 2.35 L Hemoglobin 7.0 L Hematocrit 23.1 L Mean Corpuscular Volume 98.3 Mean Corpuscular Hemoglobin 29.8 Mean Corpuscular Hemoglobin Concent 30.3 L Red Cell Distribution Width 14.6 H Platelet Count 178 # Mean Platelet Volume 11.7 H Neutrophils % 82.5 H Lymphocytes % 6.7 L Monocytes % 8.4 Eosinophils % 0.3 Basophils % 0.4 Nucleated Red Blood Cells % 0.0 Neutrophils # 8.0 H Lymphocytes # 0.7 L Monocytes # 0.8 Eosinophils # 0.0 Basophils # 0.0 Nucleated Red Blood Cells # 0.0 Prothrombin Time 16.8 H Prothrombin Time Ratio 1.3 INR International Normalized Ratio 1.36 Activated Partial Thromboplast Time 41.9 H Total Bilirubin 0.1 L Direct Bilirubin 0.00 Indirect Bilirubin 0.1 Aspartate Amino Transf (AST/SGOT) 38 Alanine Aminotransferase (ALT/SGPT) 61 Alkaline Phosphatase 135 H Total Protein 6.8 Albumin 3.9 Globulin 2.90 Albumin/Globulin Ratio 1.34 Medications Medications Current Medications Acetaminophen/ Hydrocodone Bitart ([place] (5/325)) 1 tab Q6H PRN PO MODERATE PAIN LEVEL 4-6 Last administered on 05/12/17 20:42; Admin Dose 1 TAB; Start 05/11/17 at 15:30 Zolpidem Tartrate (Ambien) 5 mg QHS PRN PO SLEEP Last administered on 21:28; Admin Dose 5 MG; Start 05/11/17 at 15:30 Heparin Sodium (Porcine) 5000 unit 5,000 unit Q12 SC Last administered on 05/13 10:28; Admin Dose 5,000 UNIT; Start 05/12/17 at 21:00 Ceftriaxone Sodium 50 ml @ 100 mls/hr Q24H IVPB Last administered on 16:07; Admin Dose 100 MLS/HR; Start 05/12/17 at 15:30 Ferric Sodium Gluconate Complex/ Sodium Chloride (Ferrlecit/NS) 110 ml @ 110 mls/hr Q24H IVPB Last administered on 05/13/17 10:57; Admin Dose 110 MLS/HR; Start 05/13/17 at 10:00; Stop 05/17/17 at 10:59 Citric Acid/ Sodium Citrate 30 ml 30 ml TID PO Last administered on 05/13/17 13:41; Admin Dose 30 ML; Start 05/13/17 at 09:00 Albumin Human (Albumin Human 25%) 50 ml @ 100 mls/hr BID IV Last administered on 05/13/17 10:11; Admin Dose 100 MLS/HR; Start 05/13/17 at 09:00; Stop at 21:29 Furosemide (Lasix) 40 mg BID IV Last administered on 05/13/17 10:56; Admin Dose 40 MG; Start 05/13/17 at 09:00; Stop 05/14/17 at 21:01 JOSLYN HOWARD May 13, 2017 14:32
[2017-05-13] MEDS: CEFTRIAXONE 1 GM/50 ML (PMX) 50 ML IVPB SCH (15:12)
--- NOTE | 2017-05-13 16:39 | RADRPT ---
Vent Rate: 74 bpm RR Interval: 0 msec [place] Interval: 150 msec QRS Duration: 76 msec QT Interval: 408 msec QTC Interval: 452 msec P-R-T [place]: 63 - 26 - 61 degrees Normal sinus rhythm Low voltage QRS Borderline ECG Electronically Signed By: Gibran Castillo [id number]
--- NOTE | 2017-05-13 16:41 | RADRPT ---
Vent Rate: 95 bpm RR Interval: 0 msec [place] Interval: 136 msec QRS Duration: 62 msec QT Interval: 356 msec QTC Interval: 490 msec P-R-T [place]: 59 - 20 - 34 degrees Sinus rhythm Low voltage QRS Borderline ECG Electronically Signed By: Gibran Castillo [id number]
[2017-05-13] MEDS: HYDROCODONE/APAP (5/325) TAB PO PRN (20:50)
[2017-05-13] MEDS: ZOLPIDEM 5 MG TAB PO PRN (23:07)
[2017-05-14] VITALS (61 sets, daily range): BP systolic 77–178; BP diastolic 37–138; PULSE 59–150; RESP 14–39
[2017-05-14] MEDS: ALBUTEROL/IPRATROPIUM (NEB) 3 ML AMP HHN PRN (01:11)
[2017-05-14] MEDS ORDERED: AMIODARONE 150MG/D5W BOLUS 100 ML IV ONE (01:30)
[2017-05-14] MEDS ORDERED: AMIODARONE DRIP 1 MG/MIN X 6 HRS, THEN 0.5 MG/MIN X 18 HRS THEN DC IV SCH ×2 (01:30→01:40)
[2017-05-14] MEDS ORDERED: NITROGLYCERIN (SL) 0.4 MG TAB ONE (01:52)
[2017-05-14] MEDS ORDERED: MIDODRINE 5 MG TAB PO ONE (02:00)
[2017-05-14] MEDS ORDERED: NITROGLYCERIN (SL) 0.4 MG TAB SL PRN (02:00)
[2017-05-14 03:09] LABS: CK-MB 2.29 ng/ml (0.0-2.4); TROPONIN-I 0.037 ng/ml (0.00-0.12)
[2017-05-14] MEDS: NORepinephrine 8MG/250 ML (PMX 250 ML IV SCH (04:27)
[2017-05-14] MEDS ORDERED: AMIODARONE 900 MG in DEXTROSE 5% 482 ML IV SCH (04:30)
[2017-05-14 06:35] LABS: BASOPHIL # 0.1 10^3/ul (0.0-0.1); BASOPHILS % 0.6 % (0.0-2.0); EOSINOPHILS # 0.1 10^3/ul (0.0-0.5); EOSINOPHILS % 1.3 % (0.0-7.0); HEMATOCRIT 22.5 % (37.0-47.0); HEMOGLOBIN 7.2 g/dl (12.0-16.0); LYMPHOCYTES # 0.6 10^3/ul (0.8-2.9); MEAN PLATELET VOLUME 11.7 fl (7.4-10.4); MONOCYTE # 0.8 10^3/ul (0.3-0.9); MONOCYTES % 7.1 % (0.0-11.0); NEUTROPHIL # 8.6 10^3/ul (1.6-7.5); NEUTROPHILS % 82.3 % (39.0-77.0); PLATELET COUNT 180 10^3/UL (140-415); RED BLOOD COUNT 2.32 10^6/ul (4.20-5.40); RED CELL DISTRIBUTION WIDTH 14.4 % (11.5-14.5); WHITE BLOOD COUNT 10.5 10^3/ul (4.8-10.8)
[2017-05-14 07:11] LABS: CALCIUM 8.4 mg/dl (8.4-10.2); CREATININE 4.98 mg/dl (0.44-1.00); POTASSIUM 5.2 mmol/L (3.5-5.1)
[2017-05-14] MEDS: FUROSEMIDE 40 MG INJ IV SCH ×2 (08:45→20:36)
[2017-05-14] MEDS: ALBUMIN HUMAN 25% 50 ML IV SCH ×2 (08:48→20:16)
[2017-05-14] MEDS: HEPARIN 5,000 UNIT/0.5 ML VIAL SC SCH ×2 (09:43→20:32)
[2017-05-14] MEDS: CITRIC ACID/NA CITRATE 30 ML CUP PO SCH ×3 (09:43→20:15)
[2017-05-14] MEDS ORDERED: LIDOCAINE 1% (MPF) 5 ML VIAL SC ONE (11:00)
[2017-05-14] MEDS: SOD FERRIC GLUC COMPLX 125 MG in SOD CHLORIDE 0.9% 100 ML IVPB SCH (12:55)
--- NOTE | 2017-05-14 13:06 | CONS ---
Date/Time of Note Date/Time of Note DATE: 05/14/17 TIME: 12:59 Assessment/Plan Assessment/Plan Chief Complaint/Hosp Course IMPRESSION: 1. Pericardial effusion by 2D echo to assess significance-moderate by echo with some possible early echo tamponade features but no current clinical tamponade at this time. ? etiology concerning for uremic as BUN increasing 80 to greater than 100 vs viral/autoimmune. Patient has been refusing HD initiation and pericardiocentesis, stating that she wants to be transferred to where her regular doctors are located. Patient had been made aware of the risks of refusing theses therapies, from myself, the treating swiss type screw machine operator Dr. Cabrera Villalba, and primary, Dr. Wynn including possible hemodynamic demise and /resp failure but still did not want the above therapies. Now patient with worsening hypotension and sob requiring transfer to ICU and inititation of pressors. Patient thus now consenting to HD and considering pericardiocentesis. 2. Shortness of breath, likely a combination of possible pneumonia as well as volume overload, congestive heart failure and pericardial effusion. 3. Hypotension-Now on pressors 4. Abnormal electrocardiogram with low voltage consistent with the patient's pericardial effusion. 5. Generalized body aches, question viral syndrome. 6. Diabetes mellitus. 7. Renal failure, acute on chronic. 8. Anemia. 9. Leukocytosis. 10. Urinary tract infection. 11. UTI REcc: -Tele -Close monitoring of BP/HR -Continue albumin infusions -To undergo stat HD today -Will place on schedule for pericardiocentesis in anticipation -Continue pressor support -Will f/u echo, done to reassess effusion -DVT prophylaxis -F/U urine cx and continue abx's Problems: Consultation Date/Type/Reason Admit Date/Time May 11, 2017 at 13:02 Initial Consult Date 05/12/17 Type of Consultation: cardiology Reason for Consultation Pericardial effusion Referring Provider: TAWANA WYNN MD Exam/Review of Systems Vital Signs Vitals Vital Signs Date Time Temp Pulse Resp B/P Pulse Ox O2 Delivery O2 Flow Rate FiO2 05/14/17 09:30 75 20 99/53 97 05/14/17 08:00 97.5 05/14/17 06:00 Nasal Cannula 4.0 05/14/17 01:11 32 Intake and Output 05/13/17 05/13/17 05/14/17 15:00 23:00 07:00 Intake Total 160 ml 500 ml 44.15 ml Output Total 350 ml 125 ml Balance 160 ml 150 ml -80.85 ml Exam Review of Systems: CONSTITUTIONAL: No fevers, chills. PULMONARY: worsening sob CARDIOVASCULAR: Hypotension GASTROINTESTINAL: No nausea/vomiting. GENITOURINARY: No hematuria/dysuria. MUSCULOSKELETAL: No myagias/arthalgias. PSYCHIATRIC: The patient denies depression. NEUROLOGIC: No weakness Constitutional: alert Psych: no complaints Head: normocephalic ENMT: mucosa pink and moist Neck: jvd (9-10 cm watert), supple Cardiovascular: regular rate and rhythm Gastrointestinal: non-tender, soft Musculoskeletal: muscle tone (normal) Extremities: pitting pedal edema Neurological: other (No focal deficits) Results Result Diagram: 05/14/17 0529 05/14/1729 Results 24 hrs Laboratory Tests Test 05/14/17 02:29 05/14/17 05:29 Creatine Kinase 58 Creatine Kinase Index 3.9 Creatinine Kinase MB (Mass) 2.29 Troponin I 0.037 White Blood Count 10.5 Red Blood Count 2.32 L Hemoglobin 7.2 L Hematocrit 22.5 L Mean Corpuscular Volume 97.0 Mean Corpuscular Hemoglobin 31.0 Mean Corpuscular Hemoglobin Concent 32.0 Red Cell Distribution Width 14.4 Platelet Count 180 Mean Platelet Volume 11.7 H Neutrophils % 82.3 H Lymphocytes % 6.0 L Monocytes % 7.1 Eosinophils % 1.3 Basophils % 0.6 Nucleated Red Blood Cells % 0.0 Neutrophils # 8.6 H Lymphocytes # 0.6 L Monocytes # 0.8 Eosinophils # 0.1 Basophils # 0.1 Nucleated Red Blood Cells # 0.0 Sodium Level 140 Potassium Level 5.2 H Chloride Level 98 Carbon Dioxide Level 22 Anion Gap 25 H Blood Urea Nitrogen 136 H Creatinine 4.98 H Glucose Level 154 Calcium Level 8.4 Medications Medications Current Medications Acetaminophen/ Hydrocodone Bitart ([place] (5/325)) 1 tab Q6H PRN PO MODERATE PAIN LEVEL 4-6 Last administered on 05/13/17 20:50; Admin Dose 1 TAB; Start 05/11/17 at 15:30 Zolpidem Tartrate (Ambien) 5 mg QHS PRN PO SLEEP Last administered on 23:07; Admin Dose 5 MG; Start 05/11/17 at 15:30 Heparin Sodium (Porcine) 5000 unit 5,000 unit Q12 SC Last administered on 05/14 09:43; Admin Dose 5,000 UNIT; Start 05/12/17 at 21:00 Ceftriaxone Sodium 50 ml @ 100 mls/hr Q24H IVPB Last administered on 15:12; Admin Dose 100 MLS/HR; Start 05/12/17 at 15:30 Ferric Sodium Gluconate Complex/ Sodium Chloride (Ferrlecit/NS) 110 ml @ 110 mls/hr Q24H IVPB Last administered on 05/14/17 12:55; Admin Dose 110 MLS/HR; Start 05/13/17 at 10:00; Stop 05/17/17 at 10:59 Citric Acid/ Sodium Citrate 30 ml 30 ml TID PO Last administered on 05/14/17 09:43; Admin Dose 30 ML; Start 05/13/17 at 09:00 Albumin Human (Albumin Human 25%) 50 ml @ 100 mls/hr BID IV Last administered on 05/14/17 08:48; Admin Dose 100 MLS/HR; Start 05/13/17 at 09:00; Stop at 21:29 Furosemide (Lasix) 40 mg BID IV Last administered on 05/14/17 08:45; Admin Dose 40 MG; Start 05/13/17 at 09:00; Stop 05/14/17 at 21:01 Nitroglycerin 1 tab 1 tab Q5M PRN SL ANGINA; Start 05/14/17 at 02:00 Amiodarone HCl 900 mg/Dextrose 500 ml @ 0 mls/hr Q0M IV Last administered on 04:55; Admin Dose 33.4 MLS/HR; Start 05/14/17 at 04:30; Stop at 04:29 Norepinephrine (Levophed) 250 ml @ 1.875 mls/ hr TITRATE IV Last administered on 05/14/17 04:27; Admin Dose 3.75 MLS/HR; Start 05/14/17 at 04:30 JOSLYN HOWARD May 14, 2017 13:06
[2017-05-14] MEDS ORDERED: HEPARIN 1000 UNITS/ML 10 ML INJ ONE (13:28)
--- NOTE | 2017-05-14 14:31 | RADRPT ---
PROCEDURE: XR Chest. CLINICAL INDICATION: Check line position. TECHNIQUE: Single frontal view. COMPARISON: 05/11/2017. FINDINGS: There is a new right internal jugular vein temporary dialysis catheter with the tip overlying the ri ght atrium. There is mild atelectasis at the lung bases. The lungs are otherwise clear. The heart is enlarged. There is calcification in the aorta consistent with atherosclerosis. There is no pleural effusion or pneumothorax. There are bilateral breast implants. IMPRESSION: 1. Right IJ catheter tip overlying the right atrium. 2. Mild atelectasis at the lung bases. 3. Cardiomegaly and atherosclerosis. 4. No pneumothorax. 5. Bilateral breast implants. RPTAT: QQ .Felipe Salinas MD, MD Date Time Electronically viewed and signed by .Felipe Salinas MD, on 05/14/2017 14:31 .R/
--- NOTE | 2017-05-14 16:07 | CONS ---
Date/Time of Note Date/Time of Note DATE: 05/14/17 TIME: 16:00 Assessment/Plan Assessment/Plan Additional Assessment/Plan 1. Acute kidney injury on CKD III/IV with worsenign uremia- now with fluid overload, hyperkalemi and Cardiorenal syndrome causing atrial fibrillation with RVR 2. acute CHF exacerbation, acute on chronic, Systolic and diastolic 3. 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 h/o HTN 5. H/o DM II 6. H/o HL 7. Anemia of CKD< with iron deficiency 8. atrial fibrillation with RVR - required amiodarone gtt 9. Hypotension possibley septic shock from UTI- on levophed gtt 10. UTI with Urine cx growing E.coli and Enterobacter Plan: pt has acute Kidney injury on CKD with worsening uremia with BUN now 136, pt also has hyperkalemia, she in fluid overload from cardiorenal syndrome - I had a discussion with patient in detail about need of emergent HD- Mauricio cavazos was also involved in Discussion, pt own PMD also get communicated on speaker phone- After that pt agreed for HD initiation will request to place temporary jacki HD catheter and Plan is to do Ultrafiltration with HD today- goal is to remove 2 to 2.5 L as tolerated renal US c/w medical renal disease IV iron for anemia Yarding Supervisor has been following on patient Pt was accepted for transfer to [facility] but currently she is not stable for transfer- we will wait for her to be more stable before getting transferred to [facility]. Consultation Date/Type/Reason Admit Date/Time May 11, 2017 at 13:02 Initial Consult Date 05/12/17 Type of Consultation: NEPHROLOGY Referring Provider: TAWANA DALY MD 24 HR Interval Summary Free Text/Dictation Overnight pt went into atrial fibrillation with RVR, BP low, currently on levophed for Bp support, Amiodarone for rate control Exam/Review of Systems Vital Signs Vitals Vital Signs Date Time Temp Pulse Resp B/P Pulse Ox O2 Delivery O2 Flow Rate FiO2 05/14/17 12:00 65 05/14/17 09:30 20 99/53 97 05/14/17 08:00 97.5 05/14/17 06:00 Nasal Cannula 4.0 05/14/17 01:11 32 Intake and Output 05/13/17 05/13/1705/14/17 15:00 23:00 07:00 Intake Total 160 ml 500 ml 44.15 ml Output Total 350 ml 125 ml Balance 160 ml 150 ml -80.85 ml Exam Constitutional: alert, awake Respiratory: Bilateral Crackles upto midlung zone, no wheezing Cardiovascular: edema, nl pulses, regular rate and rhythm Gastrointestinal: non-tender, other (non distended ), soft Musculoskeletal: muscle weakness, range of motion, Extremities: 3+ pitting edema upto thigh Neurological: WOOD STAINER II-XII intact, nl mental status, nl speech, nl strength Results Result Diagram: 05/14/1752805/14/17528 Results 24 hrs Laboratory Tests Test 05/14/17 02:29 05/14/17 05:29 Creatine Kinase 58 Creatine Kinase Index 3.9 Creatinine Kinase MB (Mass) 2.29 Troponin I 0.037 White Blood Count 10.5 Red Blood Count 2.32 L Hemoglobin 7.2 L Hematocrit 22.5 L Mean Corpuscular Volume 97.0 Mean Corpuscular Hemoglobin 31.0 Mean Corpuscular Hemoglobin Concent 32.0 Red Cell Distribution Width 14.4 Platelet Count 180 Mean Platelet Volume 11.7 H Neutrophils % 82.3 H Lymphocytes % 6.0 L Monocytes % 7.1 Eosinophils % 1.3 Basophils % 0.6 Nucleated Red Blood Cells % 0.0 Neutrophils # 8.6 H Lymphocytes # 0.6 L Monocytes # 0.8 Eosinophils # 0.1 Basophils # 0.1 Nucleated Red Blood Cells # 0.0 Sodium Level 140 Potassium Level 5.2 H Chloride Level 98 Carbon Dioxide Level 22 Anion Gap 25 H Blood Urea Nitrogen 136 H Creatinine 4.98 H Glucose Level 154 Calcium Level 8.4 Medications Medications Current Medications Acetaminophen/ Hydrocodone Bitart ([place] (5/325)) 1 tab Q6H PRN PO MODERATE PAIN LEVEL 4-6 Last administered on 05/13/17 20:50; Admin Dose 1 TAB; Start 05/11/17 at 15:30 Zolpidem Tartrate (Ambien) 5 mg QHS PRN PO SLEEP Last administered on 23:07; Admin Dose 5 MG; Start 05/11/17 at 15:30 Heparin Sodium (Porcine) 5000 unit 5,000 unit Q12 SC Last administered on 05/14 09:43; Admin Dose 5,000 UNIT; Start 05/12/17 at 21:00 Ceftriaxone Sodium 50 ml @ 100 mls/hr Q24H IVPB Last administered on 15:12; Admin Dose 100 MLS/HR; Start 05/12/17 at 15:30 Ferric Sodium Gluconate Complex/ Sodium Chloride (Ferrlecit/NS) 110 ml @ 110 mls/hr Q24H IVPB Last administered on 05/14/17 12:55; Admin Dose 110 MLS/HR; Start 05/13/17 at 10:00; Stop 05/17/17 at 10:59 Citric Acid/ Sodium Citrate 30 ml 30 ml TID PO Last administered on 05/14/17 09:43; Admin Dose 30 ML; Start 05/13/17 at 09:00 Albumin Human (Albumin Human 25%) 50 ml @ 100 mls/hr BID IV Last administered on 05/14/17 08:48; Admin Dose 100 MLS/HR; Start 05/13/17 at 09:00; Stop at 21:29 Furosemide (Lasix) 40 mg BID IV Last administered on 05/14/17 08:45; Admin Dose 40 MG; Start 05/13/17 at 09:00; Stop 05/14/17 at 21:01 Nitroglycerin 1 tab 1 tab Q5M PRN SL ANGINA; Start 05/14/17 at 02:00 Amiodarone HCl 900 mg/Dextrose 500 ml @ 0 mls/hr Q0M IV Last administered on 04:55; Admin Dose 33.4 MLS/HR; Start 05/14/17 at 04:30; Stop at 04:29 Norepinephrine (Levophed) 250 ml @ 1.875 mls/ hr TITRATE IV Last administered on 05/14/17 04:27; Admin Dose 3.75 MLS/HR; Start 05/14/17 at 04:30 PREM FISCHER MD May 14, 2017 16:07
--- NOTE | 2017-05-14 16:29 | PN ---
Date/Time of Note Date/Time of Note DATE: 05/14/17 TIME: 16:21 Assessment/Plan VTE Prophylaxis VTE Prophylaxis Intervention: heparin Lines/Catheters IV C[facility]ter Type ([facility] Peripheral IV Urinary Cath still in place: No Assessment/Plan Chief Complaint/Hosp Course 1. Acute kidney injury secondary to sepsis from UTI on chronic CKD with fluid overload, uremia and hyperkalemia Patient to receive emergent hemodialysis today, vascular to place access Nephrology following 2. Septic shock secondary to UTI Urine culture shows E. coli Continue Rocephin Continue pressor support 3. Diabetes Continue insulin 4. Diastolic heart failure Emergent dialysis 5. Obesity Prophylaxis: Heparin Problems: Subjective 24 Hr Interval Summary Constitutional: no complaints Exam/Review of Systems Vital Signs Vitals Vital Signs Date Time Temp Pulse Resp B/P Pulse Ox O2 Delivery O2 Flow Rate FiO2 05/14/17 12:00 65 05/14/17 09:30 20 99/53 97 05/14/17 08:00 97.5 05/14/17 06:00 Nasal Cannula 4.0 05/14/17 01:11 32 Intake and Output 05/13/17 05/13/17 05/14/17 15:00 23:00 07:00 Intake Total 160 ml 500 ml 44.15 ml Output Total 350 ml 125 ml Balance 160 ml 150 ml -80.85 ml Exam Constitutional: alert, oriented Respiratory: clear to auscultation Cardiovascular: regular rate and rhythm Gastrointestinal: soft, No distended Musculoskeletal: nl extremities to inspection Results Result Diagram: 05/14/17 0529 05/14/17 0529 Results 24 hrs Laboratory Tests Test 05/14/17 02:29 05/14/17 05:29 Creatine Kinase 58 Creatine Kinase Index 3.9 Creatinine Kinase MB (Mass) 2.29 Troponin I 0.037 White Blood Count 10.5 Red Blood Count 2.32 L Hemoglobin 7.2 L Hematocrit 22.5 L Mean Corpuscular Volume 97.0 Mean Corpuscular Hemoglobin 31.0 Mean Corpuscular Hemoglobin Concent 32.0 Red Cell Distribution Width 14.4 Platelet Count 180 Mean Platelet Volume 11.7 H Neutrophils % 82.3 H Lymphocytes % 6.0 L Monocytes % 7.1 Eosinophils % 1.3 Basophils % 0.6 Nucleated Red Blood Cells % 0.0 Neutrophils # 8.6 H Lymphocytes # 0.6 L Monocytes # 0.8 Eosinophils # 0.1 Basophils # 0.1 Nucleated Red Blood Cells # 0.0 Sodium Level 140 Potassium Level 5.2 H Chloride Level 98 Carbon Dioxide Level 22 Anion Gap 25 H Blood Urea Nitrogen 136 H Creatinine 4.98 H Glucose Level 154 Calcium Level 8.4 Medications Medications Current Medications Acetaminophen/ Hydrocodone Bitart ([place] (5/325)) 1 tab Q6H PRN PO MODERATE PAIN LEVEL 4-6 Last administered on 05/13/17 20:50; Admin Dose 1 TAB; Start 05/11/17 at 15:30 Zolpidem Tartrate (Ambien) 5 mg QHS PRN PO SLEEP Last administered on 23:07; Admin Dose 5 MG; Start 05/11/17 at 15:30 Heparin Sodium (Porcine) 5000 unit 5,000 unit Q12 SC Last administered on 05/14 09:43; Admin Dose 5,000 UNIT; Start 05/12/17 at 21:00 Ceftriaxone Sodium 50 ml @ 100 mls/hr Q24H IVPB Last administered on 15:12; Admin Dose 100 MLS/HR; Start 05/12/17 at 15:30 Ferric Sodium Gluconate Complex/ Sodium Chloride (Ferrlecit/NS) 110 ml @ 110 mls/hr Q24H IVPB Last administered on 05/14/17 12:55; Admin Dose 110 MLS/HR; Start 05/13/17 at 10:00; Stop 05/17/17 at 10:59 Citric Acid/ Sodium Citrate 30 ml 30 ml TID PO Last administered on 05/14/17 09:43; Admin Dose 30 ML; Start 05/13/17 at 09:00 Albumin Human (Albumin Human 25%) 50 ml @ 100 mls/hr BID IV Last administered on 05/14/17 08:48; Admin Dose 100 MLS/HR; Start 05/13/17 at 09:00; Stop at 21:29 Furosemide (Lasix) 40 mg BID IV Last administered on 05/14/17 08:45; Admin Dose 40 MG; Start 05/13/17 at 09:00; Stop 05/14/17 at 21:01 Nitroglycerin 1 tab 1 tab Q5M PRN SL ANGINA; Start 05/14/17 at 02:00 Amiodarone HCl 900 mg/Dextrose 500 ml @ 0 mls/hr Q0M IV Last administered on 04:55; Admin Dose 33.4 MLS/HR; Start 05/14/17 at 04:30; Stop at 04:29 Norepinephrine (Levophed) 250 ml @ 1.875 mls/ hr TITRATE IV Last administered on 05/14/17 04:27; Admin Dose 3.75 MLS/HR; Start 05/14/17 at 04:30 Mannitol (Mannitol 25%) 12.5 gm ONCE ONCE IV* ; Start 05/14/17 at 16:30; Stop 05/14/17 at 16:31; Status UNV SINDHU LOPEZ May 14, 2017 16:29
[2017-05-14] MEDS ORDERED: MANNITOL 20% 62.5 ML IV SCH (16:30)
[2017-05-14] MEDS ORDERED: MANNITOL 25% 50 ML INJ IV* ONE (16:30)
[2017-05-14] MEDS: CEFTRIAXONE 1 GM/50 ML (PMX) 50 ML IVPB SCH (16:52)
--- NOTE | 2017-05-14 17:42 | OPR ---
Date/Time of Note Date/Time of Note DATE: 05/14/17 TIME: 17:42 Operative Report Preoperative Diagnosis RENAL FAILURE Postoperative Diagnosis SAME Surgeon see signature line Application Security Specialist none Anesthesia Type: other (LOCAL) Estimated Blood Loss: minimal Transfusion none Specimen NONE Grafts/Implants none Complications none Pt Condition Post Procedure: stable Disposition: other (ICU) Procedure Description DATE OF OPERATION: 05/14/2017 SURGEON: Gerber Marrero MD PREOPERATIVE DIAGNOSIS: RENAL FAILURE POSTOPERATIVE DIAGNOSIS: same ANESTHESIA: Local BLOOD LOSS: minimal COMPLICATIONS: None. HEPARIN: None CONTRAST: None ACCESS: Right internal jugular vein CLOSURE: Manual compression & 3-0 Nylon suture INDICATIONS: This is a 82 year-old female with acute on chronic renal failure requiring dialysis for fluid overload and pulmonary congestion. Patient has failed diuresis to improve and require urgent dialysis. Patient have been informed of the alternatives, risks, and benefits. Risks including but not limited to bleeding, thrombosis, embolization, myocardial infarction, , device malfunction, infection, pneumothorax, nephrotoxicity and patient has agreed to proceed. This is the first in this clinical setting. PROCEDURE: 1. Ultrasound guided access of right Internal Jugular Vein 2. Emergent right internal jugular vein non-tunneled hemodialysis catheter placement DESCRIPTION: The patient was brought to the angio suite and positioned in the supine position on the bed. Sedation was administered without complication. Right neck and chest wall was shaved, prepped and draped in the standard sterile fashion. A time-out was completed verifying correct patient, procedure , site, positioning, implant and special equipment prior to beginning this procedure. Local anesthesia was infiltrated in the region of the right neck. Patients head was turned to the contralateral side. The dialysis catheter was flushed with heparin to ensure function of each port. Landmarks were identified and an ultrasound machine was used to confirm the internal jugular vein. It was in its usual anatomic location, was patent, compressible, and had non-pulsatile venous blood flow. A 16cm dialysis catheter kit was used. The skin and subcutaneous tissues were anesthetized with 10 ml of 1% lidocaine. Using a 16-g needle, the vein was punctured and the guidewire advanced under direct ultrasonic visualization. The guidewire advanced without resistance or difficulty. A skin marshall was made at the insertion site, and using Seldinger technique, a dilator was passed over the wire to dilate the subcutaneous tissue. The dilator was exchanged for the catheter and the catheter smoothly advanced. The guidewire was removed without difficulty, and the catheter ports were aspirated, flushed with saline, and capped without complication. X-ray was performed and catheter position was satisfactory. The catheter was secured with multiple 3-0 nylon sutures at the desired depth, and a dressing applied. The patient tolerated the procedure well and taken to recovery in fair condition. PLAN: Patient may use the catheter for exchange transfusion GERBER MARRERO MD May 14, 2017 17:42
[2017-05-14] MEDS ORDERED: DILTIAZEM-D5W 125MG/125ML DRIP 125 ML IV SCH (19:30)
--- NOTE | 2017-05-14 19:47 | RADRPT ---
Echocardiogram Report Patient Name: MIKA TAMAYO Gender: Female Date: 1935 Study Date: 14-May-2017 Cashier Manager: Yessi Santana RDCS Location: [facility] Ref. Physician: JOSLYN CASTILLO Quality: Technically Difficult Study Procedures: Transthoracic echocardiogram examination. Indications: Pericardial Effusion. Findings Pericardium: Moderate pericardial effusion. Conclusions 1.Moderate to large size pericardial effusion with some echocardiographic features of tamponade including RA late diastolic invagination and mitral valve variation in outflow velocity. Electronically Signed By: Joslyn Castillo 14-May-2017 19:47:06 -0700 Patient Name: MIKA TAMAYO Study Date: 14-May-2017 [id number]
[2017-05-15] VITALS (80 sets, daily range): BP systolic 72–162; BP diastolic 34–126; PULSE 57–137; RESP 0–33
[2017-05-15 05:14] LABS: BASOPHIL # 0.1 10^3/ul (0.0-0.1); BASOPHILS % 0.5 % (0.0-2.0); EOSINOPHILS # 0.1 10^3/ul (0.0-0.5); EOSINOPHILS % 0.4 % (0.0-7.0); HEMATOCRIT 24.6 % (37.0-47.0); HEMOGLOBIN 7.5 g/dl (12.0-16.0); LYMPHOCYTES # 0.8 10^3/ul (0.8-2.9); LYMPHOCYTES % 5.1 % (15.0-51.0); MEAN CORPUSCULAR HEMOGLOBIN 30.1 pg (29.0-33.0); MEAN CORPUSCULAR HGB CONC 30.5 g/dl (32.0-37.0); MEAN CORPUSCULAR VOLUME 98.8 fl (82.0-101.0); MEAN PLATELET VOLUME 11.1 fl (7.4-10.4); MONOCYTES % 6.5 % (0.0-11.0); NEUTROPHIL # 12.7 10^3/ul (1.6-7.5); NEUTROPHILS % 84.4 % (39.0-77.0); PLATELET COUNT 228 10^3/UL (140-415); RED BLOOD COUNT 2.49 10^6/ul (4.20-5.40); RED CELL DISTRIBUTION WIDTH 14.7 % (11.5-14.5); WHITE BLOOD COUNT 15.1 10^3/ul (4.8-10.8)
[2017-05-15 05:49] LABS: CREATININE 3.87 mg/dl (0.44-1.00); MAGNESIUM 2.7 mg/dl (1.7-2.5); PHOSPHORUS 8.3 mg/dl (2.5-4.9); POTASSIUM 5.4 mmol/L (3.5-5.1)
[2017-05-15] MEDS ORDERED: ETOMIDATE 20 MG INJ ONE (07:00)
--- NOTE | 2017-05-15 08:40 | CONS ---
Date/Time of Note Date/Time of Note DATE: 05/15/17 TIME: 08:36 Assessment/Plan Assessment/Plan Additional Assessment/Plan 1. Pericardial effusion by 2D echo to assess significance-moderate by echo with some possible early echo tamponade features but no current clinical tamponade at this time. ? etiology concerning for uremic as BUN increasing 80 to greater than 100 vs viral/autoimmune. Patient has been refusing HD initiation and pericardiocentesis, stating that she wants to be transferred to where her regular doctors are located. Patient had been made aware of the risks of refusing theses therapies, from myself, the treating flight crew time clerk Dr. Cabrera Villalba, and primary, Dr. Wynn including possible hemodynamic demise and /resp failure but still did not want the above therapies. Now patient with worsening hypotension and sob requiring transfer to ICU and inititation of pressors. Patient thus now consenting to HD and considering - above per DR. Castillo note yesterday. Pt more altered tyoday, had HD - still critically ill. DR. Castillo will evaluate later today for possible pericardiocentesis. For now, FD to follow. 2. Shortness of breath, likely a combination of possible pneumonia as well as volume overload, congestive heart failure and pericardial effusion. Will check ABG now. 3. Hypotension-Now on pressors 4. Abnormal electrocardiogram with low voltage consistent with the patient's pericardial effusion. 5. Generalized body aches, question viral syndrome. 6. Diabetes mellitus. 7. Renal failure, acute on chronic. 8. Anemia. 9. Leukocytosis. 10. Urinary tract infection. 11. UTI 12. A. fib with RVR - now back in sinus - amio gtt loaded - will follow for now. Consultation Date/Type/Reason Admit Date/Time May 11, 2017 at 13:02 Initial Consult Date 05/12/17 Type of Consultation: NEPHROLOGY Referring Provider: TAWANA WYNN MD 24 HR Interval Summary Free Text/Dictation A. Fib with RVR - responded to amiodarone - no anti-coag in a setting of pericardial effusion - will check ABG/HD today - DR. aCstillo will see if pericardicentesis is warranted. ROS: No fever, no chills, no nausea, no vomiting, no diarrhea/constipation MORE ALTERED No recent weight changes No chest pain, no PND, no orthopnea + SOB No dizziness, blurred vision No thirst, no heat or cold intolerance Exam/Review of Systems Vital Signs Vitals Vital Signs Date Time Temp Pulse Resp B/P Pulse Ox O2 Delivery O2 Flow Rate FiO2 05/15/17 08:00 97.9 70 28 162/126 96 Mask 8.0 05/14/17 01:11 32 Intake and Output 05/14/17 05/14/17 05/15/17 15:00 23:00 07:00 Intake Total 659.1 ml 851.2 ml 100.2 ml Output Total 400 ml 3140 ml 55 ml Balance 259.1 ml -2288.8 ml 45.2 ml Exam General: WN/WD/NAD, AOx 0 sleepy HEENT: Unicetric/atraumatic/EOMI (does not follow commands) NECK: JVD elevated, no thyromegaly Lymph: no lymphadenopathy HEART: regular with no S3, II/ systolic murmur at apex, coarse LUNGS: Coarse sounds ABD: soft, NT, ND, +BS : Intact Neuro: non focal SKIN: chronic changes EXT: trace edema Results Result Diagram: 05/15/17 0430 05/15/17 0430 Results 24 hrs Laboratory Tests Test 05/15/17 04:30 White Blood Count 15.1 #H Red Blood Count 2.49 L Hemoglobin 7.5 L Hematocrit 24.6 L Mean Corpuscular Volume 98.8 Mean Corpuscular Hemoglobin 30.1 Mean Corpuscular Hemoglobin Concent 30.5 L Red Cell Distribution Width 14.7 H Platelet Count 228 # Mean Platelet Volume 11.1 H Neutrophils % 84.4 H Lymphocytes % 5.1 L Monocytes % 6.5 Eosinophils % 0.4 Basophils % 0.5 Nucleated Red Blood Cells % 0.0 Neutrophils # 12.7 H Lymphocytes # 0.8 Monocytes # 1.0 H Eosinophils # 0.1 Basophils # 0.1 Nucleated Red Blood Cells # 0.0 Sodium Level 139 Potassium Level 5.4 H Chloride Level 96 L Carbon Dioxide Level 29 Anion Gap 19 H Blood Urea Nitrogen 98 #H Creatinine 3.87 #H Glucose Level 152 Calcium Level 9.0 Phosphorus Level 8.3 H Magnesium Level 2.7 H Medications Medications Current Medications Acetaminophen/ Hydrocodone Bitart ([place] (5/325)) 1 tab Q6H PRN PO MODERATE PAIN LEVEL 4-6 Last administered on 05/13/17 20:50; Admin Dose 1 TAB; Start 05/11/17 at 15:30 Zolpidem Tartrate (Ambien) 5 mg QHS PRN PO SLEEP Last administered on 23:07; Admin Dose 5 MG; Start 05/11/17 at 15:30 Heparin Sodium (Porcine) 5000 unit 5,000 unit Q12 SC Last administered on 05/14 20:32; Admin Dose 5,000 UNIT; Start 05/12/17 at 21:00 Ceftriaxone Sodium 50 ml @ 100 mls/hr Q24H IVPB Last administered on 16:52; Admin Dose 100 MLS/HR; Start 05/12/17 at 15:30 Ferric Sodium Gluconate Complex/ Sodium Chloride (Ferrlecit/NS) 110 ml @ 110 mls/hr Q24H IVPB Last administered on 05/14/17 12:55; Admin Dose 110 MLS/HR; Start 05/13/17 at 10:00; Stop 05/17/17 at 10:59 Citric Acid/ Sodium Citrate (Bicitra) 30 ml TID PO Last administered on 20:15; Admin Dose 30 ML; Start 05/13/17 at 09:00 Nitroglycerin 1 tab 1 tab Q5M PRN SL ANGINA; Start 05/14/17 at 02:00 Norepinephrine 250 ml @ 1.875 mls/ hr TITRATE IV Last administered on 04:27; Admin Dose 3.75 MLS/HR; Start 05/14/17 at 04:30 Diltiazem HCl (Cardizem-D5W 125 Mg/125 ml Drip) 125 ml @ 5 mls/hr TITRATE IV ; Start 05/14/17 at 19:30 BEN BARBA MD May 15, 2017 08:40
[2017-05-15 08:49] LABS: AADO2 Arterial 177.1 mmHg (7.0-24.0); Allen Test ACCEPTAB; Arterial COHb 0.3 % (0.0-3.0); Arterial Fraction of Oxyhgb 96.9 % (93.0-99.0); Arterial HCO3 26.4 mmol/L (22.0-26.0); Arterial MetHb 0.4 % (0.0-1.5); Arterial Total Hemglobin 9.1 g/dl (12.0-18.0); MODE MASK - SIMPLE
[2017-05-15] MEDS: CITRIC ACID/NA CITRATE 30 ML CUP PO SCH ×3 (08:59→21:00)
[2017-05-15] MEDS: SOD FERRIC GLUC COMPLX 125 MG in SOD CHLORIDE 0.9% 100 ML IVPB SCH (09:17)
[2017-05-15] MEDS: NORepinephrine 8MG/250 ML (PMX 250 ML IV SCH (09:43)
--- NOTE | 2017-05-15 09:53 | RADRPT ---
PROCEDURE: XR Chest 1 view. CLINICAL INDICATION: Shortness of breath. TECHNIQUE: AP views of the chest was obtained. COMPARISON: Yesterday FINDINGS: The heart is large. Calcified atherosclerosis is noted in the aorta. Right-sided dialysis catheter is unchanged. Central pulmonary vascular congestion and interstitial prominence in both lungs appear s stable. Retrocardiac opacity is noted. Right lower lung infiltrates and small right pleural effusi on are stable. The osseous structures are unchanged. Calcified breast implants over both sides of t he chest are stable. IMPRESSION: Cardiomegaly with calcified atherosclerosis in the aorta. Stable central pulmonary vascular congestion and mild interstitial prominence in both lungs. Retrocardiac opacity that may reflect left lower lobe atelectasis or infiltrate combined with small pleural effusion. Stable right lower lung infiltrates and small right pleural effusion. RPTAT: AA .Crispin Recinos MD, MD Date Time Electronically viewed and signed by .Crispin Recinos MD, MD on 05/15/2017 09:52 .P/
[2017-05-15] MEDS ORDERED: LIDOCAINE 1% (MPF) 5 ML VIAL SC ONE (10:00)
[2017-05-15 10:20] LABS: ADD UMIC YES; UR AMORPHOUS CRYSTAL MODERATE /HPF (NONE SEEN); UR ASCORBIC ACID NEGATIVE (NEGATIVE); UR BACTERIA FEW /HPF (NONE SEEN); UR BILIRUBIN (Dip) NEGATIVE (NEGATIVE); UR BLOOD (Dip) 3+ mg/dL (NEGATIVE); UR BUDDING YEAST MANY /HPF (NONE SEEN); UR CLARITY TURBID (CLEAR); UR COLOR AMBER (YELLOW); UR GLUCOSE (Dip) NEGATIVE (NEGATIVE); UR KETONES (Dip) NEGATIVE (NEGATIVE); UR LEUKOCYTE ESTERASE (Dip) 2+ Leu/ul (NEGATIVE); UR NITRITE (Dip) NEGATIVE (NEGATIVE); UR NONSQUAMOUS EPITHELIAL CELL 3 /HPF (NONE SEEN); UR RBC > 182 /HPF (0-5); UR SPECIFIC GRAVITY (Dip) 1.017 (1.003-1.030); UR SQUAMOUS EPITHELIAL CELL FEW /HPF (FEW); UR TOTAL PROTEIN (Dip) 2+ mg/dl (NEGATIVE); UR UROBILINOGEN (Dip) NEGATIVE (NEGATIVE)
[2017-05-15 10:32] LABS: AADO2 Arterial 131.6 mmHg (7.0-24.0); Allen Test ACCEPTAB; Arterial COHb 0.3 % (0.0-3.0); Arterial Fraction of Oxyhgb 97.9 % (93.0-99.0); Arterial HCO3 27.3 mmol/L (22.0-26.0); Arterial MetHb 0.3 % (0.0-1.5); Arterial Total Hemglobin 10.4 g/dl (12.0-18.0); Blood Gas IEPAP 20/8; MODE MASK - BIPAP
[2017-05-15] MEDS: HEPARIN 5,000 UNIT/0.5 ML VIAL SC SCH (10:38)
--- NOTE | 2017-05-15 12:35 | CONS ---
DATE OF ADMISSION: 05/11/2017 DATE OF CONSULTATION: PULMONARY CONSULTATION REASON FOR CONSULT: Hypoxemic and hypercapnic respiratory failure. HISTORY OF PRESENT ILLNESS: This is an 82-year-old lady with multiple medical problems brought in f or evaluation of peripheral vascular disease with worsening renal failure and had been experiencing shortness of breath per chart for several weeks. Found on admission to have worsening renal failure and evidence of pericardial effusion with tamponade physiology per cardiology. The patient has had worsening mentation requiring transfer to the intensive care unit. This morning is more lethargic with evidence of hypercapnia, likely secondary to altered mental status and hypoventilation. Echoca rdiogram demonstrates moderate to large pericardial effusion is noted. Per the patient's daughter, the patient has multiple medical problems and has been declining slowly. Previously treated at [facility]. PAST MEDICAL HISTORY: As above. MEDICATIONS: Per chart. ALLERGIES: SULFA, PLAVIX AND VANCOMYCIN. SOCIAL HISTORY: Nonsmoker, no alcohol, no history of drug use. FAMILY HISTORY: Noncontributory. REVIEW OF SYSTEMS: A 14-point review of systems unable to perform. PHYSICAL EXAMINATION: GENERAL: Morbidly obese lady, arousable to painful stimuli, but not following commands. VITAL SIGNS: Currently afebrile, pulse is 70, blood pressure 160/100, O2 saturation 96% on FIO2 of 50% BiPAP. NECK: Supple, no JVD or lymphadenopathy. CARDIAC: S1, S2, no added sounds or murmurs. CHEST: Diminished air entry bilaterally. ABDOMEN: Soft, nontender. No guarding or rebound. EXTREMITIES: No cyanosis, clubbing, or edema. NEUROLOGIC: Unable to assess. LABORATORY DATA: White count 15.1, hemoglobin 7.5, platelets of 228. BUN 98, creatinine 3.87. Uri nalysis was positive for UTI. Arterial blood gas pH 7.18, pCO2 of 74, pO2 141. DIAGNOSTIC DATA: Chest x-ray was reviewed, shows cardiomegaly and possible right effusion. IMPRESSION AND PLAN: 1. Hypoxemic respiratory failure secondary to alveolar hypoventilation with hypercapnia and worseni ng mentation. 2. Large pericardial effusion, unclear etiology with evidence of tamponade. 3. Renal failure, progressive to cardiorenal syndrome. 4. Atrial fibrillation with rapid ventricular rate. 5. Diabetic nephropathy per chart. 6. Escherichia coli urinary tract infection. PLAN: 1. Patient will require continued noninvasive positive pressure ventilation. 2. May require intubation and mechanical ventilation. This was discussed with patient's daughter a t bedside. 3. May require emergent hemodialysis. 4. Pericardial drain when more stable. 5. Rate control. 6. Deep venous thrombosis and gastrointestinal prophylaxis. 7. Antibiotics for Escherichia coli urinary tract infection which is pansensitive. Dictated By: LOVE GARCIA/DEBORAH Conf#: [id number] DID#: [id number]
[2017-05-15] MEDS: ALBUMIN HUMAN 25% 100 ML IV ONE ×2 (12:39→16:40)
[2017-05-15 13:04] LABS: AADO2 Arterial 134.2 mmHg (7.0-24.0); Allen Test ACCEPTAB; Arterial Base Excess -1.1 mmol/L (-3.0-3); Arterial COHb 0.5 % (0.0-3.0); Arterial HCO3 26.6 mmol/L (22.0-26.0); Arterial MetHb 0.4 % (0.0-1.5); Arterial Total Hemglobin 7.6 g/dl (12.0-18.0); Blood Gas IEPAP 22/8; MODE MASK - BIPAP
[2017-05-15 14:02] LABS: MYELOPEROXIDASE ANTIBODY <1.0 AI; PROTEINASE-3 ANTIBODY <1.0 AI
[2017-05-15] MEDS ORDERED: PROPOFOL 100 ML ONE (14:16)
[2017-05-15] MEDS: PROPOFOL 100 ML IV SCH ×2 (14:23→19:25)
--- NOTE | 2017-05-15 14:40 | RADRPT ---
PROCEDURE: Ultrasound guidance for placement of needle in left upper extremity vein. CLINICAL INDICATION: Venous access. TECHNIQUE: Limited sonography of the left upper extremity was performed. Ultrasound images were recorded and s tored in the patient's medical record. COMPARISON: None. FINDINGS: The ultrasound images demonstrate a patent left upper extremity vein. The PICC line was inserted by the PICC line nurse. IMPRESSION: 1. Ultrasound guidance for a needle placement in a left upper extremity vein. 2. The left upper extremity vein is patent. RPTAT: QQ .Felipe Salinas MD, MD Date Time Electronically viewed and signed by .Felipe Salinas MD, on 05/15/2017 14:40 .R/
[2017-05-15] MEDS ORDERED: HEPARIN 1000 UNITS/NS (A-LINE) 1,000 ML ONE (15:16)
[2017-05-15] MEDS ORDERED: LIDOCAINE 1% (MDV) 20 ML INJ ONE (15:16)
[2017-05-15] MEDS ORDERED: IODIXANOL LOCM 50 ML BTL ONE (15:16)
[2017-05-15] MEDS ORDERED: FENTAnyl 50 MCG/ML VIAL ONE (15:16)
--- NOTE | 2017-05-15 15:16 | SIPON ---
Date/Time of Note Date/Time of Note DATE: 05/15/17 TIME: 15:12 Operative Report Preoperative Diagnosis 1.Pericardial effusion 2.Tamponade Postoperative Diagnosis 1.successful pericardiocentesis - 820 cc serosanguinous fluid removal Operation/Procedure Performed 1.pericardiocentesis Surgeon see signature line real estate executive assistant 1.Shawn Anesthesia: moderate sedation Estimated blood loss: minimal Transfusion Required none Specimen NA Grafts/Implants none Complications none JOSLYN HOWARD May 15, 2017 15:16
[2017-05-15 15:28] LABS: AADO2 Arterial 320.3 mmHg (7.0-24.0); Allen Test ACCEPTAB; Arterial Base Excess -1.6 mmol/L (-3.0-3); Arterial COHb 0.3 % (0.0-3.0); Arterial HCO3 24.5 mmol/L (22.0-26.0); Arterial MetHb 0.3 % (0.0-1.5); Arterial Total Hemglobin 8.3 g/dl (12.0-18.0); MODE VENT - AC
--- NOTE | 2017-05-15 15:31 | OPR ---
Date/Time of Note Date/Time of Note DATE: 05/15/17 TIME: 15:29 Operative Report Free Text/Dictation Procedure note Endotracheal intubation Indication hypoxemic respiratory failure Description Patient was placed in supine position with neck extended. His blood pressure EKG and pulse oximetry were continuously monitored. 10 mg of etomidate administered. Using a Jamaal blade 4 laryngoscope vocal cords were visualized which were noted to be normal in appearance and movement. A size 7.5 endotracheal tube was passed through the vocal cords without resistance. This was secured at 24 cm to the lip. CO2 capnometer was immediately positive, there was condensation in the endotracheal tube and patient had equal breath sounds bilaterally. Postintubation chest x-ray and ABG have been requested Patient tolerated the procedure without complication Preoperative Diagnosis Hypercapnic respiratory failure Postoperative Diagnosis Hypercapnic respiratory failure Surgeon see signature line It Data Architect None Anesthesia Type: moderate sedation Estimated Blood Loss: none Transfusion none Specimen None Grafts/Implants none Complications none Procedure Description as above LOVE CEVALLOS MD, [facility] May 15, 2017 15:31
--- NOTE | 2017-05-15 15:37 | PN ---
Date/Time of Note Date/Time of Note DATE: 05/15/17 TIME: 15:33 Assessment/Plan VTE Prophylaxis VTE Prophylaxis Intervention: heparin Assessment/Plan Chief Complaint/Hosp Course 1. Acute kidney injury secondary to sepsis from UTI on chronic CKD with fluid overload, uremia and hyperkalemia Patient to receive emergent hemodialysis today, vascular to place access Nephrology following 2. Septic shock secondary to UTI Urine culture shows E. coli Continue Rocephin Continue pressor support as needed 3. Acute encephalopathy secondary to hypercapnic respiratory failure Patient intubated today 4. Hypotension likely secondary to pericardial effusion Plan is for pericardiocentesis today 5. Obesity 6. Diabetes Continue insulin Prophylaxis: Heparin Problems: Subjective 24 Hr Interval Summary Subjective hx not possible: pt non-verbal Exam/Review of Systems Vital Signs Vitals Vital Signs Date Time Temp Pulse Resp B/P Pulse Ox O2 Delivery O2 Flow Rate FiO2 05/15/17 15:03 60 20 93 100 05/15/17 14:15 141/56 05/15/17 13:45 BIPAP 05/15/17 12:00 98.2 05/15/17 09:00 8.0 Intake and Output 05/14/17 05/14/17 05/15/17 15:00 23:00 07:00 Intake Total 659.1 ml 851.2 ml 100.2 ml Output Total 400 ml 3140 ml 55 ml Balance 259.1 ml -2288.8 ml 45.2 ml Exam Constitutional: non-verbal ENMT: intubated Respiratory: clear to auscultation Cardiovascular: regular rate and rhythm Gastrointestinal: soft, No distended Musculoskeletal: nl extremities to inspection Results Result Diagram: 05/15/17 0430 05/15/17 0430 Results 24 hrs Laboratory Tests Test 05/15/17 04:30 05/15/17 08:31 05/15/17 09:10 05/15/17 09:30 White Blood Count 15.1 #H Red Blood Count 2.49 L Hemoglobin 7.5 L Hematocrit 24.6 L Mean Corpuscular Volume 98.8 Mean Corpuscular Hemoglobin 30.1 Mean Corpuscular Hemoglobin Concent 30.5 L Red Cell Distribution Width 14.7 H Platelet Count 228 # Mean Platelet Volume 11.1 H Neutrophils % 84.4 H Lymphocytes % 5.1 L Monocytes % 6.5 Eosinophils % 0.4 Basophils % 0.5 Nucleated Red Blood Cells % 0.0 Neutrophils # 12.7 H Lymphocytes # 0.8 Monocytes # 1.0 H Eosinophils # 0.1 Basophils # 0.1 Nucleated Red Blood Cells # 0.0 Sodium Level 139 Potassium Level 5.4 H Chloride Level 96 L Carbon Dioxide Level 29 Anion Gap 19 H Blood Urea Nitrogen 98 #H Creatinine 3.87 #H Glucose Level 152 Calcium Level 9.0 Phosphorus Level 8.3 H Magnesium Level 2.7 H Blood Gas Specimen Source Blood arterial Arterial Blood Date Drawn 05/15/2017 8:30:09 AM Arterial Blood pH (Temp corrected) 7.159 *L Arterial Blood pCO2 (Temp correct) 75.8 H Arterial Blood pO2 (Temp corrected) 116.1 H Arterial Blood HCO3 26.4 H Arterial Blood Base Excess -3.0 Arterial Blood Oxygen Saturation 97.6 Ned Test ACCEPTAB Arterial Blood Gas Puncture Site Left Radial Arterial Blood Carboxyhemoglobin 0.3 Arterial Blood Methemoglobin 0.4 Blood Gas A-a O2 Differential 177.1 H Oxyhemoglobin Percent 96.9 Total Hemoglobin 9.1 L Blood Gas Temperature 37.0 Blood Gas Modality MASK - SIMPLE FiO2 53.0 Blood Gas Critical Value Read Back E REBECCA JAMESON Blood Gas Notified Whom JLD Blood Gas Notified Time 05/15/2017 8:48:11 AM Lactic Acid Level 0.8 Urine Color GRACIELA Urine Clarity TURBID A Urine pH 5.0 Urine Specific [place] 1.017 Urine Ketones NEGATIVE Urine Nitrite NEGATIVE Urine Bilirubin NEGATIVE Urine Urobilinogen NEGATIVE Urine Leukocyte Esterase 2+ H Urine Microscopic RBC > 182 H Urine Microscopic WBC 180 H Urine Squamous Epithelial Cells FEW Urine Amorphous Crystals MODERATE Urine Bacteria FEW A Urine Yeast (Budding) MANY A Urine Hemoglobin 3+ H Urine Glucose NEGATIVE Urine Total Protein 2+ H Test 05/15/17 10:00 05/15/17 13:00 05/15/17 14:26 Blood Gas Specimen Source Blood arterial Blood arterial Blood arterial Arterial Blood Date Drawn 05/15/2017 10:20:25 AM 05/15/2017 12:40:45 PM 05/15/2017 3:20:18 PM Arterial Blood pH (Temp corrected) 7.185 *L 7.234 *L 7.327 L Arterial Blood pCO2 (Temp correct) 74.0 H 64.4 H 47.8 H Arterial Blood pO2 (Temp corrected) 141.7 H 149.9 H 344.9 H Arterial Blood HCO3 27.3 H 26.6 H 24.5 Arterial Blood Base Excess -2.0 -1.1 -1.6 Arterial Blood Oxygen Saturation 98.5 98.9 99.6 Ned Test ACCEPTAB ACCEPTAB ACCEPTAB Arterial Blood Gas Puncture Site Left Radial Left Radial Left Radial Arterial Blood Carboxyhemoglobin 0.3 0.5 0.3 Arterial Blood Methemoglobin 0.3 0.4 0.3 Blood Gas A-a O2 Differential 131.6 H 134.2 H 320.3 H Oxyhemoglobin Percent 97.9 98.0 99.0 Total Hemoglobin 10.4 L 7.6 L 8.3 L Blood Gas Temperature 37.0 37.0 37.0 Blood Gas Respiration Rate 20.0 24.0 20.0 Blood Gas Actual Respiration Rate 29 24 30 Blood Gas Modality MASK - BIPAP MASK - BIPAP VENT - AC FiO2 50.0 50.0 100.0 Blood Gas IPAP/EPAP Ratio 11/03 13/03 Blood Gas Critical Value Read Back E REBECCA JAMESON E REBECCA RN Blood Gas Notified Whom FRANCIS BLANCO Blood Gas Notified Time 05/15/2017 10:32:00 AM 05/15/2017 1:03:41 PM 05/15/2017 3:27:47 PM Blood Gas Tidal Volume 500.0 Blood Gas Low PEEP Setting 5.0 Medications Medications Current Medications Acetaminophen/ Hydrocodone Bitart ([place] (5/325)) 1 tab Q6H PRN PO MODERATE PAIN LEVEL 4-6 Last administered on 05/13/17 20:50; Admin Dose 1 TAB; Start 05/11/17 at 15:30 Zolpidem Tartrate (Ambien) 5 mg QHS PRN PO SLEEP Last administered on 23:07; Admin Dose 5 MG; Start 05/11/17 at 15:30 Heparin Sodium (Porcine) 5000 unit 5,000 unit Q12 SC Last administered on 05/14 20:32; Admin Dose 5,000 UNIT; Start 05/12/17 at 21:00; Status Future Hold Ceftriaxone Sodium 50 ml @ 100 mls/hr Q24H IVPB Last administered on 16:52; Admin Dose 100 MLS/HR; Start 05/12/17 at 15:30 Ferric Sodium Gluconate Complex/ Sodium Chloride (Ferrlecit/NS) 110 ml @ 110 mls/hr Q24H IVPB Last administered on 05/15/17 09:17; Admin Dose 110 MLS/HR; Start 05/13/17 at 10:00; Stop 05/17/17 at 10:59 Citric Acid/ Sodium Citrate (Bicitra) 30 ml TID PO Last administered on 20:15; Admin Dose 30 ML; Start 05/13/17 at 09:00 Nitroglycerin 1 tab 1 tab Q5M PRN SL ANGINA; Start 05/14/17 at 02:00 Norepinephrine 250 ml @ 1.875 mls/ hr TITRATE IV Last administered on 09:43; Admin Dose 7.5 MLS/HR; Start 05/14/17 at 04:30 Diltiazem HCl 125 ml @ 5 mls/hr TITRATE IV ; Start 05/14/17 at 19:30 Propofol (Diprivan) 100 ml @ 2.891 mls/ hr Q12H IV Last administered on 14:23; Admin Dose 5.782 MLS/HR; Start 05/15/17 at 14:30 IV Flush (NS 10 ml) 10 ml PRN PRN IV IV PROTOCOL; Start 05/15/17 at 14:30 Morphine Sulfate (morphine) 1 mg Q2 PRN IV PAIN NOT RELIEVED BY OTHERS; Start 05/15/17 at 15:30 SINDHU LOPEZ May 15, 2017 15:37
[2017-05-15] MEDS ORDERED: IOHEXOL 350MG/ML 50 ML BTL ONE (15:45)
[2017-05-15] MEDS ORDERED: HEPARIN 1000 UNITS/ML 10 ML INJ ONE (16:03)
[2017-05-15] MEDS: CEFTRIAXONE 1 GM/50 ML (PMX) 50 ML IVPB SCH (16:05)
--- NOTE | 2017-05-15 16:15 | RADRPT ---
PROCEDURE: XR Chest. CLINICAL INDICATION: Check PICC line position. TECHNIQUE: Single frontal view. COMPARISON: 05/15/2017. 0859 hours. FINDINGS: There is a left arm PICC line with the tip in the lower superior vena cava. The temporary right int ernal jugular vein dialysis catheter remains in satisfactory position. There is mild atelectasis at the lung bases. Mild pulmonary edema is unchanged. The heart is enlarged. There is calcification in the aorta consistent with atherosclerosis. There ar e bilateral breast implants. There is no pleural effusion. There is no pneumothorax. IMPRESSION: 1. Left arm PICC line tip in satisfactory position. 2. No other change from the prior study done earlier the same day. RPTAT: QQ .Felipe Salinas MD, MD Date Time Electronically viewed and signed by .Felipe Salinas MD, on 05/15/2017 16:15 .R/
--- NOTE | 2017-05-15 16:17 | CONS ---
Date/Time of Note Date/Time of Note DATE: 05/15/17 TIME: 16:16 Assessment/Plan Assessment/Plan Additional Assessment/Plan 1. Acute kidney injury on CKD III/IV with worsenign uremia- now with fluid overload, hyperkalemi and Cardiorenal syndrome causing atrial fibrillation with RVR - started on hemodialysis on 05/14/2017- had UF with HD on 05/14/17- 2.5 L removed 2. acute CHF exacerbation, acute on chronic, Systolic and diastolic 3. Acute Hypoxemic respiratory failure secondary to alveolar hypoventilation with hypercapnia and worsening mentation. 4. Large pericardial effusino s/p pericardiocentesis 850cc drained 5. Septic shock due to UIT, urine cx grew E.coli and Enterobacter 5. atrial firbillatino with RVR on amiodarone 6. 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 h/o HTN 8. H/o DM II 9. H/o HL 10.. Anemia of CKD< with iron deficiency - on IV iron with epogen Plan: started on hemodialysis on 05/14/2017- had UF with HD on 05/14/17- 2.5 L removed , will plan for another HD today with UF today after pericardiocentesis , also HD ordered for tomorrow pt needs better HR control for her atrila fibrillatin prior to HD, so Nurse instructed to call to get some orders for her atrial fibrillatiion control renal US c/w medical renal disease IV iron for anemia IV abx ceftriaxone for UTI, repeat UA and urine cx has been sent Cardiology , pulmonary has been following on patient. Pt was accepted for transfer to [facility] but currently she is not stable for transfer- we will wait for her to be more stable before getting transferred to [facility]. Consultation Date/Type/Reason Admit Date/Time May 11, 2017 at 13:02 Initial Consult Date 05/12/17 Type of Consultation: NEPHROLOGY Referring Provider: TAWANA DALY MD 24 HR Interval Summary Free Text/Dictation pt went into resp failure required BIPAP initially then subsequently she is intubated on ventilator, low BP required Levophed, gtt,, lethargic unresponsive, Exam/Review of Systems Vital Signs Vitals Vital Signs Date Time Temp Pulse Resp B/P Pulse Ox O2 Delivery O2 Flow Rate FiO2 05/15/17 16:00 97.8 137 13 130/67 100 Mechanical Ventilator 05/15/17 15:42 50 05/15/17 09:00 8.0 Intake and Output 05/14/17 05/14/17 05/15/17 15:00 23:00 07:00 Intake Total 659.1 ml 851.2 ml 100.2 ml Output Total 400 ml 3140 ml 55 ml Balance 259.1 ml -2288.8 ml 45.2 ml Exam Constitutional: non-verbal, other (sedated intubated on ventilator ) ENMT: other (ET tube in place ) Neck: non-tender, supple Respiratory: crackles/rales, diminished breath sounds, wheezing Cardiovascular: other (tachycardia ), irregular rate and rhythm Gastrointestinal: non-tender, soft Musculoskeletal: other (1+ pitting edema, no clubbing, no cyanosis ) Neurological: unresponsive Results Result Diagram: 05/15/17 0430 05/15/17 0430 Results 24 hrs Laboratory Tests Test 05/15/17 04:30 05/15/17 08:31 05/15/17 09:10 05/15/17 09:30 White Blood Count 15.1 #H Red Blood Count 2.49 L Hemoglobin 7.5 L Hematocrit 24.6 L Mean Corpuscular Volume 98.8 Mean Corpuscular Hemoglobin 30.1 Mean Corpuscular Hemoglobin Concent 30.5 L Red Cell Distribution Width 14.7 H Platelet Count 228 # Mean Platelet Volume 11.1 H Neutrophils % 84.4 H Lymphocytes % 5.1 L Monocytes % 6.5 Eosinophils % 0.4 Basophils % 0.5 Nucleated Red Blood Cells % 0.0 Neutrophils # 12.7 H Lymphocytes # 0.8 Monocytes # 1.0 H Eosinophils # 0.1 Basophils # 0.1 Nucleated Red Blood Cells # 0.0 Sodium Level 139 Potassium Level 5.4 H Chloride Level 96 L Carbon Dioxide Level 29 Anion Gap 19 H Blood Urea Nitrogen 98 #H Creatinine 3.87 #H Glucose Level 152 Calcium Level 9.0 Phosphorus Level 8.3 H Magnesium Level 2.7 H Blood Gas Specimen Source Blood arterial Arterial Blood Date Drawn 05/15/2017 8:30:09 AM Arterial Blood pH (Temp corrected) 7.159 *L Arterial Blood pCO2 (Temp correct) 75.8 H Arterial Blood pO2 (Temp corrected) 116.1 H Arterial Blood HCO3 26.4 H Arterial Blood Base Excess -3.0 Arterial Blood Oxygen Saturation 97.6 Ned Test ACCEPTAB Arterial Blood Gas Puncture Site Left Radial Arterial Blood Carboxyhemoglobin 0.3 Arterial Blood Methemoglobin 0.4 Blood Gas A-a O2 Differential 177.1 H Oxyhemoglobin Percent 96.9 Total Hemoglobin 9.1 L Blood Gas Temperature 37.0 Blood Gas Modality MASK - SIMPLE FiO2 53.0 Blood Gas Critical Value Read Back E REBECCA JAMESON Blood Gas Notified Whom SAMUELD Blood Gas Notified Time 05/15/2017 8:48:11 AM Lactic Acid Level 0.8 Urine Color GRACIELA Urine Clarity TURBID A Urine pH 5.0 Urine Specific [place] 1.017 Urine Ketones NEGATIVE Urine Nitrite NEGATIVE Urine Bilirubin NEGATIVE Urine Urobilinogen NEGATIVE Urine Leukocyte Esterase 2+ H Urine Microscopic RBC > 182 H Urine Microscopic WBC 180 H Urine Squamous Epithelial Cells FEW Urine Amorphous Crystals MODERATE Urine Bacteria FEW A Urine Yeast (Budding) MANY A Urine Hemoglobin 3+ H Urine Glucose NEGATIVE Urine Total Protein 2+ H Test 05/15/17 10:00 05/15/17 13:00 05/15/17 14:26 Blood Gas Specimen Source Blood arterial Blood arterial Blood arterial Arterial Blood Date Drawn 05/15/2017 10:20:25 AM 05/15/2017 12:40:45 PM 05/15/2017 3:20:18 PM Arterial Blood pH (Temp corrected) 7.185 *L 7.234 *L 7.327 L Arterial Blood pCO2 (Temp correct) 74.0 H 64.4 H 47.8 H Arterial Blood pO2 (Temp corrected) 141.7 H 149.9 H 344.9 H Arterial Blood HCO3 27.3 H 26.6 H 24.5 Arterial Blood Base Excess -2.0 -1.1 -1.6 Arterial Blood Oxygen Saturation 98.5 98.9 99.6 Ned Test ACCEPTAB ACCEPTAB ACCEPTAB Arterial Blood Gas Puncture Site Left Radial Left Radial Left Radial Arterial Blood Carboxyhemoglobin 0.3 0.5 0.3 Arterial Blood Methemoglobin 0.3 0.4 0.3 Blood Gas A-a O2 Differential 131.6 H 134.2 H 320.3 H Oxyhemoglobin Percent 97.9 98.0 99.0 Total Hemoglobin 10.4 L 7.6 L 8.3 L Blood Gas Temperature 37.0 37.0 37.0 Blood Gas Respiration Rate 20.0 24.0 20.0 Blood Gas Actual Respiration Rate 29 24 30 Blood Gas Modality MASK - BIPAP MASK - BIPAP VENT - AC FiO2 50.0 50.0 100.0 Blood Gas IPAP/EPAP Ratio 11/03 13/03 Blood Gas Critical Value Read Back E REBECCA RN E REBECCA RN Blood Gas Notified Whom FRANCIS BLANCO Blood Gas Notified Time 05/15/2017 10:32:00 AM 05/15/2017 1:03:41 PM 05/15/2017 3:27:47 PM Blood Gas Tidal Volume 500.0 Blood Gas Low PEEP Setting 5.0 Medications Medications Current Medications Acetaminophen/ Hydrocodone Bitart ([place] (5/325)) 1 tab Q6H PRN PO MODERATE PAIN LEVEL 4-6 Last administered on 05/13/17 20:50; Admin Dose 1 TAB; Start 05/11/17 at 15:30 Zolpidem Tartrate (Ambien) 5 mg QHS PRN PO SLEEP Last administered on 23:07; Admin Dose 5 MG; Start 05/11/17 at 15:30 Heparin Sodium (Porcine) 5000 unit 5,000 unit Q12 SC Last administered on 05/14 20:32; Admin Dose 5,000 UNIT; Start 05/12/17 at 21:00; Status Future Hold Ceftriaxone Sodium 50 ml @ 100 mls/hr Q24H IVPB Last administered on 16:05; Admin Dose 100 MLS/HR; Start 05/12/17 at 15:30 Ferric Sodium Gluconate Complex/ Sodium Chloride (Ferrlecit/NS) 110 ml @ 110 mls/hr Q24H IVPB Last administered on 05/15/17 09:17; Admin Dose 110 MLS/HR; Start 05/13/17 at 10:00; Stop 05/17/17 at 10:59 Citric Acid/ Sodium Citrate (Bicitra) 30 ml TID PO Last administered on 20:15; Admin Dose 30 ML; Start 05/13/17 at 09:00 Nitroglycerin 1 tab 1 tab Q5M PRN SL ANGINA; Start 05/14/17 at 02:00 Norepinephrine 250 ml @ 1.875 mls/ hr TITRATE IV Last administered on 10/24/ 17at 09:43; Admin Dose 7.5 MLS/HR; Start 05/14/17 at 04:30 Diltiazem HCl 125 ml @ 5 mls/hr TITRATE IV ; Start 05/14/17 at 19:30 Propofol (Diprivan) 100 ml @ 2.891 mls/ hr Q12H IV Last administered on t 14:23; Admin Dose 5.782 MLS/HR; Start 05/15/17 at 14:30 IV Flush (NS 10 ml) 10 ml PRN PRN IV IV PROTOCOL; Start 05/15/17 at 14:30 Morphine Sulfate (morphine) 1 mg Q2 PRN IV PAIN NOT RELIEVED BY OTHERS; Start 05/15/17 at 15:30 PREM FISCHER MD May 15, 2017 16:17
--- NOTE | 2017-05-15 16:26 | RADRPT ---
PROCEDURE: XR Chest. CLINICAL INDICATION: Shortness of breath. Post pericardiocentesis. TECHNIQUE: Single frontal view. COMPARISON: 05/15/2017. 1423 hours. FINDINGS: The endotracheal tube, right internal jugular vein temporary dialysis catheter, and left arm PICC li ne remain in satisfactory position. There is mild atelectasis at the lung bases and mild pulmonary e sheba, unchanged. The lungs are otherwise clear. The heart is enlarged. There is calcification in the aorta consistent with atherosclerosis. A pigtai l catheter is noted overlying the heart, from pericardiocentesis. There are small bilateral pleural effusions. There is no pneumothorax. There are bilateral breast implants. IMPRESSION: 1. Pigtail catheter overlying the heart from pericardiocentesis. 2. No other new abnormality. RPTAT: QQ .Felipe Salinas MD, MD Date Time Electronically viewed and signed by .Felipe Salinas MD, MD on 05/15/2017 16:26 .R/
--- NOTE | 2017-05-15 16:35 | RADRPT ---
PROCEDURE: XR Chest. CLINICAL INDICATION: Check endotracheal tube position. TECHNIQUE: Single frontal view. COMPARISON: 05/15/2017. 1359 hours. FINDINGS: The endotracheal tube is in satisfactory position approximately 4.5 cm above the gissell. The tempora ry right internal jugular vein dialysis catheter and left arm PICC line remain in satisfactory posit ion. There is mild atelectasis at the lung bases and mild pulmonary edema, unchanged. The heart is enlarged. There is calcification in the aorta consistent with atherosclerosis. There ar e bilateral breast implants. There is no pleural effusion. There is no pneumothorax. IMPRESSION: 1. Satisfactory placement of endotracheal tube. 2. No other change from the prior study done earlier the same day. RPTAT: QQ .Felipe Salinas MD, MD Date Time Electronically viewed and signed by .Felipe Salinas MD, on 05/15/2017 16:35 .R/
[2017-05-15] MEDS ORDERED: AMIODARONE 900 MG in DEXTROSE 5% 482 ML IV SCH (17:00)
[2017-05-15 17:43] LABS: ANA SCREEN POSITIVE (NEGATIVE)
[2017-05-15 18:21] LABS: FLD MN% 48.9 %; FLD PMN% 51.1 %; FLD WBC 4986 /cmm
[2017-05-15 20:30] LABS: FLD CLARITY CLOUDY; FLD COLOR RED
--- NOTE | 2017-05-15 22:38 | RADRPT ---
Vent Rate: 151 bpm RR Interval: 0 msec NM Interval: 0 msec QRS Duration: 68 msec QT Interval: 274 msec QTC Interval: 434 msec P-R-T [place]: 0 - 28 - 164 degrees Baseline artifact, likely atrial fibrillation Low voltage QRS Possible Lateral infarct , age undetermined Abnormal ECG Electronically Signed By: Maurice San [id number]
--- NOTE | 2017-05-15 22:46 | RADRPT ---
Vent Rate: 117 bpm RR Interval: 0 msec UT Interval: 0 msec QRS Duration: 90 msec QT Interval: 306 msec QTC Interval: 426 msec P-R-T [place]: 0 - 8 - 84 degrees Atrial fibrillation with rapid ventricular response Nonspecific ST abnormality , probably digitalis effect Abnormal ECG Electronically Signed By: Maurice San [id number]
[2017-05-16] VITALS (43 sets, daily range): BP systolic 82–134; BP diastolic 22–94; PULSE 51–81; RESP 11–25
[2017-05-16] MEDS: PROPOFOL 100 ML IV SCH (01:35)
[2017-05-16 04:58] LABS: ABNORMAL IP MESSAGE 1; BASOPHILS % 0.3 % (0.0-2.0); EOSINOPHILS # 0.2 10^3/ul (0.0-0.5); EOSINOPHILS % 2.9 % (0.0-7.0); HEMATOCRIT 19.1 % (37.0-47.0); LYMPHOCYTES # 0.5 10^3/ul (0.8-2.9); LYMPHOCYTES % 8.3 % (15.0-51.0); MEAN CORPUSCULAR HEMOGLOBIN 30.2 pg (29.0-33.0); MEAN CORPUSCULAR HGB CONC 31.9 g/dl (32.0-37.0); MEAN CORPUSCULAR VOLUME 94.6 fl (82.0-101.0); MEAN PLATELET VOLUME 10.7 fl (7.4-10.4); MONOCYTE # 0.5 10^3/ul (0.3-0.9); MONOCYTES % 7.7 % (0.0-11.0); NEUTROPHIL # 4.6 10^3/ul (1.6-7.5); NEUTROPHILS % 78.6 % (39.0-77.0); NUCLEATED RED BLOOD CELLS% 0.3 /100WBC (0.0-0.0); PLATELET COUNT 161 10^3/UL (140-415); RED BLOOD COUNT 2.02 10^6/ul (4.20-5.40); RED CELL DISTRIBUTION WIDTH 14.4 % (11.5-14.5); WHITE BLOOD COUNT 5.9 10^3/ul (4.8-10.8)
[2017-05-16 05:09] LABS: HEMOGLOBIN 6.1 g/dl (12.0-16.0)
[2017-05-16 05:10] LABS: POSITIVE DIFF @See below
[2017-05-16 05:23] LABS: CALCIUM 8.7 mg/dl (8.4-10.2); CREATININE 2.6 mg/dl (0.44-1.00); POTASSIUM 3.8 mmol/L (3.5-5.1)
[2017-05-16] MEDS: CITRIC ACID/NA CITRATE 30 ML CUP PO SCH ×3 (09:00→21:56)
[2017-05-16 09:06] LABS: ANISOCYTOSIS 1+ (0-0); EOSINOPHILS % (M) 3 % (0-7); ERYTHROBLAST% (NRBC) (M) 1 % (0-0); HYPOCHROMASIA 1+ (0-0); MICROCYTOSIS 1+ (0-0); MONOCYTES % (M) 4 % (0-11); PLATELET ESTIMATE NORMAL; POIKILOCYTOSIS 1+ (0-0); POLYCHROMASIA 1+ (0-0)
[2017-05-16] MEDS: SOD FERRIC GLUC COMPLX 125 MG in SOD CHLORIDE 0.9% 100 ML IVPB SCH (09:24)
[2017-05-16] MEDS ORDERED: LIDOCAINE 1% (MPF) 5 ML VIAL SC ONE (10:00)
[2017-05-16 10:11] LABS: Allen Test ACCEPTAB; Arterial Base Excess 4.1 mmol/L (-3.0-3); Arterial COHb 0.3 % (0.0-3.0); Arterial Fraction of Oxyhgb 97.2 % (93.0-99.0); Arterial HCO3 28.5 mmol/L (22.0-26.0); Arterial MetHb 0.4 % (0.0-1.5); Arterial Total Hemglobin 9.1 g/dl (12.0-18.0); Blood Gas PS 10; MODE VENT - CPAP
--- NOTE | 2017-05-16 11:13 | PN ---
Date/Time of Note Date/Time of Note DATE: 05/16/17 TIME: 11:10 Assessment/Plan VTE Prophylaxis VTE Prophylaxis Intervention: heparin Assessment/Plan Chief Complaint/Hosp Course 1. Acute kidney injury secondary to sepsis from UTI on chronic CKD with fluid overload, uremia and hyperkalemia Continue dialysis per nephrology 2. Shock secondary to sepsis from UTI as well as pericardial effusion-resolved Now off pressors Patient is status post successful pericardiocentesis Urine culture shows E. coli Continue Rocephin 3. Acute encephalopathy secondary to hypercapnic respiratory failure Status post intubation, CO2 levels have improved CPAP trials today 4. Pericardial effusion status post successful pericardiocentesis 5. Obesity 6. Diabetes Continue insulin Prophylaxis: Heparin Problems: Subjective 24 Hr Interval Summary Subjective hx not possible: pt non-verbal Exam/Review of Systems Vital Signs Vitals Vital Signs Date Time Temp Pulse Resp B/P Pulse Ox O2 Delivery O2 Flow Rate FiO2 05/16/17 10:55 64 25 100 40 05/16/17 09:30 119/49 Mechanical Ventilator 05/16/17 07:30 99.1 05/15/17 09:00 8.0 Intake and Output 05/15/17 05/15/17 05/16/17 15:00 23:00 07:00 Intake Total 155.0 ml 963.215 ml 188.468 ml Output Total 25 ml 2730 ml 195 ml Balance 130.0 ml -1766.785 ml -6.532 ml Exam Constitutional: non-verbal ENMT: intubated Respiratory: clear to auscultation Cardiovascular: regular rate and rhythm Gastrointestinal: soft, No distended Musculoskeletal: No nl extremities to inspection Results Result Diagram: 05/16/17 0400 05/16/17 0400 Results 24 hrs Laboratory Tests Test 05/15/17 13:00 05/15/17 14:26 05/15/17 15:00 05/16/17 04:00 Blood Gas Specimen Source Blood arterial Blood arterial Arterial Blood Date Drawn 05/15/2017 12:40:45 PM 05/15/2017 3:20:18 PM Arterial Blood pH (Temp corrected) 7.234 *L 7.327 L Arterial Blood pCO2 (Temp correct) 64.4 H 47.8 H Arterial Blood pO2 (Temp corrected) 149.9 H 344.9 H Arterial Blood HCO3 26.6 H 24.5 Arterial Blood Base Excess -1.1 -1.6 Arterial Blood Oxygen Saturation 98.9 99.6 Ned Test ACCEPTAB ACCEPTAB Arterial Blood Gas Puncture Site Left Radial Left Radial Arterial Blood Carboxyhemoglobin 0.5 0.3 Arterial Blood Methemoglobin 0.4 0.3 Blood Gas A-a O2 Differential 134.2 H 320.3 H Oxyhemoglobin Percent 98.0 99.0 Total Hemoglobin 7.6 L 8.3 L Blood Gas Temperature 37.0 37.0 Blood Gas Respiration Rate 24.0 20.0 Blood Gas Actual Respiration Rate 24 30 Blood Gas Modality MASK - BIPAP VENT - AC FiO2 50.0 100.0 Blood Gas IPAP/EPAP Ratio 22/8 Blood Gas Critical Value Read Back E REBECCA JAMESON Blood Gas Notified Whom FRANCIS BLANCO Blood Gas Notified Time 05/15/2017 1:03:41 PM 05/15/2017 3:27:47 PM Blood Gas Tidal Volume 500.0 Blood Gas Low PEEP Setting 5.0 Body Fluid Type Body Fluid Volume 850.0 Body Fluid Color RED Body Fluid Appearance CLOUDY Body Fluid WBC 4986 Body Fluid RBC (Auto) 429 Body Fluid Polynuclear WBCs (%) 51.1 Body Fluid Mononuclear Cells % Auto 48.9 Body Fluid Total Protein 5.6 White Blood Count 5.9 # Red Blood Count 2.02 L Hemoglobin 6.1 *L Hematocrit 19.1 #L Mean Corpuscular Volume 94.6 Mean Corpuscular Hemoglobin 30.2 Mean Corpuscular Hemoglobin Concent 31.9 L Red Cell Distribution Width 14.4 Platelet Count 161 # Mean Platelet Volume 10.7 H Neutrophils % 78.6 H Segmented Neutrophils % (Manual) 84 H Band Neutrophils % (Manual) 1 Lymphocytes % 8.3 L Lymphocytes % (Manual) 8 L Monocytes % 7.7 Monocytes % (Manual) 4 Eosinophils % 2.9 Eosinophils % (Manual) 3 Basophils % 0.3 Nucleated Red Blood Cells % 1 H Neutrophils # 4.6 Neutrophils # (Manual) 5.0 Band Neutrophils # 0.0 Absolute Lymphocytes (Manual) 0.4 L Lymphocytes # 0.5 L Monocytes # 0.5 Absolute Monocytes (Manual) 0.2 L Eosinophils # 0.2 Basophils # 0.0 Nucleated Red Blood Cells # 0.0 Platelet Estimate NORMAL Polychromasia 1+ Hypochromasia 1+ Poikilocytosis 1+ Anisocytosis 1+ Microcytosis 1+ Sodium Level 142 Potassium Level 3.8 Chloride Level 99 Carbon Dioxide Level 29 Anion Gap 18 H Blood Urea Nitrogen 66 #H Creatinine 2.60 #H Glucose Level 90 # Calcium Level 8.7 Test 05/16/17 10:00 Blood Gas Specimen Source Blood arterial Arterial Blood Date Drawn 05/16/2017 10:00:04 AM Arterial Blood pH (Temp corrected) 7.451 H Arterial Blood pCO2 (Temp correct) 41.8 Arterial Blood pO2 (Temp corrected) 114.1 H Arterial Blood HCO3 28.5 H Arterial Blood Base Excess 4.1 H Arterial Blood Oxygen Saturation 97.9 Ned Test ACCEPTAB Arterial Blood Gas Puncture Site Right Radial Arterial Blood Carboxyhemoglobin 0.3 Arterial Blood Methemoglobin 0.4 Blood Gas A-a O2 Differential 123.0 H Oxyhemoglobin Percent 97.2 Total Hemoglobin 9.1 L Blood Gas Temperature 37.0 Blood Gas Actual Respiration Rate 25 Blood Gas Modality VENT - CPAP FiO2 40.0 Blood Gas Low PEEP Setting 5.0 Blood Gas Pressure Support 10 Blood Gas Notified Whom Yessi CANTU Blood Gas Notified Time 05/16/2017 10:11:29 AM Medications Medications Current Medications Acetaminophen/ Hydrocodone Bitart ([place] (5/325)) 1 tab Q6H PRN PO MODERATE PAIN LEVEL 4-6 Last administered on 05/13/17 20:50; Admin Dose 1 TAB; Start 05/11/17 at 15:30 Zolpidem Tartrate (Ambien) 5 mg QHS PRN PO SLEEP Last administered on 23:07; Admin Dose 5 MG; Start 05/11/17 at 15:30 Heparin Sodium (Porcine) 5000 unit 5,000 unit Q12 SC Last administered on 05/14 20:32; Admin Dose 5,000 UNIT; Start 05/12/17 at 21:00; Status Future Hold Ceftriaxone Sodium 50 ml @ 100 mls/hr Q24H IVPB Last administered on 16:05; Admin Dose 100 MLS/HR; Start 05/12/17 at 15:30 Ferric Sodium Gluconate Complex/ Sodium Chloride (Ferrlecit/NS) 110 ml @ 110 mls/hr Q24H IVPB Last administered on 05/16/17 09:24; Admin Dose 110 MLS/HR; Start 05/13/17 at 10:00; Stop 05/17/17 at 10:59 Citric Acid/ Sodium Citrate (Bicitra) 30 ml TID PO Last administered on 20:15; Admin Dose 30 ML; Start 05/13/17 at 09:00 Nitroglycerin 1 tab 1 tab Q5M PRN SL ANGINA; Start 05/14/17 at 02:00 Norepinephrine 250 ml @ 1.875 mls/ hr TITRATE IV Last administered on 09:43; Admin Dose 7.5 MLS/HR; Start 05/14/17 at 04:30 Diltiazem HCl 125 ml @ 5 mls/hr TITRATE IV ; Start 05/14/17 at 19:30 Propofol (Diprivan) 100 ml @ 2.891 mls/ hr Q12H IV Last administered on 01:35; Admin Dose 11.563 MLS/HR; Start 05/15/17 at 14:30 IV Flush (NS 10 ml) 10 ml PRN PRN IV IV PROTOCOL; Start 05/15/17 at 14:30 Morphine Sulfate 1 mg 1 mg Q2 PRN IV PAIN NOT RELIEVED BY OTHERS; Start at 15:30 Amiodarone HCl/ Dextrose (Cordarone Iv/ D5W) 500 ml @ 0 mls/hr Q0M IV Last administered on 05/15/17 16:57; Admin Dose 33.4 MLS/HR; Start 05/15/17 at 17: 00; Stop 05/16/17 at 16:59 SINDHU LOPEZ May 16, 2017 11:13
--- NOTE | 2017-05-16 11:21 | CONS ---
Date/Time of Note Date/Time of Note DATE: 05/16/17 TIME: 09:33 Consult Date/Type/Reason Admit Date/Time May 11, 2017 at 13:02 Initial Consult Date 05/12/17 Type of Consultation: Pulmonary Ordering Provider: TAWANA DALY MD Subjective Patient stable this morning awake alert and oriented orally intubated. Stable following pericardial drainage. Objective Vital Signs Date Time Temp Pulse Resp B/P Pulse Ox O2 Delivery O2 Flow Rate FiO2 05/16/17 09:01 64 20 100 40 05/16/17 07:30 99.1 101/44 Mechanical Ventilator 05/15/17 09:00 8.0 Intake and Output 05/15/17 05/15/17 05/16/17 15:00 23:00 07:00 Intake Total 155.0 ml 963.215 ml 188.468 ml Output Total 25 ml 2730 ml 195 ml Balance 130.0 ml -1766.785 ml -6.532 ml Exam PHYSICAL EXAMINATION GENERAL: Elderly lady intubated on mechanical ventilation appears comfortable at rest follows simple commands VITAL SIGNS: see below. HEENT: Pupils equal, round, and reactive to light. CARDIAC: S1, S2, 1/6 systolic ejection murmur CHEST: Diminished air entry bilaterally. ABDOMEN: Mildly distended. Bowel sounds present no guarding or rebound EXTREMITIES: No cyanosis, clubbing edema +1 NEUROLOGIC: Generalized weakness Results/Medications Result Diagram: 05/16/17 0400 05/16/17 0400 Results 24 hrs Laboratory Tests Test 05/15/17 10:00 05/15/17 13:00 05/15/17 14:26 05/15/17 15:00 Blood Gas Specimen Source Blood arterial Blood arterial Blood arterial Arterial Blood Date Drawn 05/15/2017 10:20:25 AM 05/15/2017 12:40:45 PM 05/15/2017 3:20:18 PM Arterial Blood pH (Temp corrected) 7.185 *L 7.234 *L 7.327 L Arterial Blood pCO2 (Temp correct) 74.0 H 64.4 H 47.8 H Arterial Blood pO2 (Temp corrected) 141.7 H 149.9 H 344.9 H Arterial Blood HCO3 27.3 H 26.6 H 24.5 Arterial Blood Base Excess -2.0 -1.1 -1.6 Arterial Blood Oxygen Saturation 98.5 98.9 99.6 Ned Test ACCEPTAB ACCEPTAB ACCEPTAB Arterial Blood Gas Puncture Site Left Radial Left Radial Left Radial Arterial Blood Carboxyhemoglobin 0.3 0.5 0.3 Arterial Blood Methemoglobin 0.3 0.4 0.3 Blood Gas A-a O2 Differential 131.6 H 134.2 H 320.3 H Oxyhemoglobin Percent 97.9 98.0 99.0 Total Hemoglobin 10.4 L 7.6 L 8.3 L Blood Gas Temperature 37.0 37.0 37.0 Blood Gas Respiration Rate 20.0 24.0 20.0 Blood Gas Actual Respiration Rate 29 24 30 Blood Gas Modality MASK - BIPAP MASK - BIPAP VENT - AC FiO2 50.0 50.0 100.0 Blood Gas IPAP/EPAP Ratio 8 228 Blood Gas Critical Value Read Back E REBECCA JAMESON E REBECCA JAMESON Blood Gas Notified Whom FRANCSI BLANCO Blood Gas Notified Time 05/15/2017 10:32:00 AM 05/15/2017 1:03:41 PM 05/15/2017 3:27:47 PM Blood Gas Tidal Volume 500.0 Blood Gas Low PEEP Setting 5.0 Body Fluid Type Body Fluid Volume 850.0 Body Fluid Color RED Body Fluid Appearance CLOUDY Body Fluid WBC 4986 Body Fluid RBC (Auto) 429 Body Fluid Polynuclear WBCs (%) 51.1 Body Fluid Mononuclear Cells % Auto 48.9 Body Fluid Total Protein 5.6 Test 05/16/17 04:00 White Blood Count 5.9 # Red Blood Count 2.02 L Hemoglobin 6.1 *L Hematocrit 19.1 #L Mean Corpuscular Volume 94.6 Mean Corpuscular Hemoglobin 30.2 Mean Corpuscular Hemoglobin Concent 31.9 L Red Cell Distribution Width 14.4 Platelet Count 161 # Mean Platelet Volume 10.7 H Neutrophils % 78.6 H Segmented Neutrophils % (Manual) 84 H Band Neutrophils % (Manual) 1 Lymphocytes % 8.3 L Lymphocytes % (Manual) 8 L Monocytes % 7.7 Monocytes % (Manual) 4 Eosinophils % 2.9 Eosinophils % (Manual) 3 Basophils % 0.3 Nucleated Red Blood Cells % 1 H Neutrophils # 4.6 Neutrophils # (Manual) 5.0 Band Neutrophils # 0.0 Absolute Lymphocytes (Manual) 0.4 L Lymphocytes # 0.5 L Monocytes # 0.5 Absolute Monocytes (Manual) 0.2 L Eosinophils # 0.2 Basophils # 0.0 Nucleated Red Blood Cells # 0.0 Platelet Estimate NORMAL Polychromasia 1+ Hypochromasia 1+ Poikilocytosis 1+ Anisocytosis 1+ Microcytosis 1+ Sodium Level 142 Potassium Level 3.8 Chloride Level 99 Carbon Dioxide Level 29 Anion Gap 18 H Blood Urea Nitrogen 66 #H Creatinine 2.60 #H Glucose Level 90 # Calcium Level 8.7 Medications Current Medications Acetaminophen/ Hydrocodone Bitart ([place] (5/325)) 1 tab Q6H PRN PO MODERATE PAIN LEVEL 4-6 Last administered on 05/13/17 20:50; Admin Dose 1 TAB; Start 05/11/17 at 15:30 Zolpidem Tartrate (Ambien) 5 mg QHS PRN PO SLEEP Last administered on 23:07; Admin Dose 5 MG; Start 05/11/17 at 15:30 Heparin Sodium (Porcine) 5000 unit 5,000 unit Q12 SC Last administered on 05/14 20:32; Admin Dose 5,000 UNIT; Start 05/12/17 at 21:00; Status Future Hold Ceftriaxone Sodium 50 ml @ 100 mls/hr Q24H IVPB Last administered on 16:05; Admin Dose 100 MLS/HR; Start 05/12/17 at 15:30 Ferric Sodium Gluconate Complex/ Sodium Chloride (Ferrlecit/NS) 110 ml @ 110 mls/hr Q24H IVPB Last administered on 05/16/17 09:24; Admin Dose 110 MLS/HR; Start 05/13/17 at 10:00; Stop 05/17/17 at 10:59 Citric Acid/ Sodium Citrate (Bicitra) 30 ml TID PO Last administered on 20:15; Admin Dose 30 ML; Start 05/13/17 at 09:00 Nitroglycerin 1 tab 1 tab Q5M PRN SL ANGINA; Start 05/14/17 at 02:00 Norepinephrine 250 ml @ 1.875 mls/ hr TITRATE IV Last administered on 09:43; Admin Dose 7.5 MLS/HR; Start 05/14/17 at 04:30 Diltiazem HCl 125 ml @ 5 mls/hr TITRATE IV ; Start 05/14/17 at 19:30 Propofol (Diprivan) 100 ml @ 2.891 mls/ hr Q12H IV Last administered on 01:35; Admin Dose 11.563 MLS/HR; Start 05/15/17 at 14:30 IV Flush (NS 10 ml) 10 ml PRN PRN IV IV PROTOCOL; Start 05/15/17 at 14:30 Morphine Sulfate 1 mg 1 mg Q2 PRN IV PAIN NOT RELIEVED BY OTHERS; Start at 15:30 Amiodarone HCl/ Dextrose (Cordarone Iv/ D5W) 500 ml @ 0 mls/hr Q0M IV Last administered on 05/15/17 16:57; Admin Dose 33.4 MLS/HR; Start 05/15/17 at 17: 00; Stop 05/16/17 at 16:59 Assessment/Plan Chief Complaint/Hosp Course IMPRESSION AND PLAN: 1. Hypoxemic respiratory failure required mechanical ventilation prior to pericardial drain. CPAP trial this morning. 2. Large pericardial effusion, status post pericardial drainage. Possibly secondary to uremia. 3. Renal failure, progressive to cardiorenal syndrome. 4. Atrial fibrillation with rapid ventricular rate. 5. Diabetic nephropathy per chart. 6. Escherichia coli urinary tract infection. 7. Drop in hemoglobin concerning for possible GI bleed. No evidence of worsening tamponade clinically. PLAN: 1. CPAP trial and extubation 2. Continue pericardial drainage 3. Renal recommendations 4. Resume diet post extubation. 5. Rate control. 6. Deep venous thrombosis and gastrointestinal prophylaxis. 7. Antibiotics for Escherichia coli urinary tract infection which is pansensitive. Problems: [facility]VALLOS [facility] May 16, 2017 11:21
--- NOTE | 2017-05-16 12:34 | CONS ---
Date/Time of Note Date/Time of Note DATE: 05/16/17 TIME: 12:26 Assessment/Plan Assessment/Plan Chief Complaint/Hosp Course IMPRESSION: 1. Pericardial effusion by 2D echo to assess significance-moderate by echo with some possible early echo tamponade features but no current clinical tamponade at this time. ? etiology concerning for uremic as BUN increasing 80 to greater than 100 vs viral/autoimmune. Patient had been refusing HD initiation and pericardiocentesis, stating that she wanted to be transferred to where her regular doctors are located. Patient had been made aware of the risks of refusing theses therapies, from myself, the treating hospice patient care secretary Dr. Cabrera Villalba, and primary, Dr. Wynn including possible hemodynamic demise and /resp failure but still did not want the above therapies. Patient last two days with worsening hypotension and sob requiring transfer to ICU and inititation of pressors and thus consented to HD and to pericardiocentesis yesterday with removal of approx 800cc serosanguinous fluid 2. Shortness of breath, likely a combination of possible pneumonia as well as volume overload, congestive heart failure and pericardial effusion. 3. Hypotension-Now on pressors 4. Abnormal electrocardiogram with low voltage consistent with the patient's pericardial effusion. 5. Generalized body aches, question viral syndrome. 6. Diabetes mellitus. 7. Renal failure, acute on chronic. 8. Anemia. 9. Leukocytosis. 10. Urinary tract infection. 11. UTI 12.Hypotension- now improved off of pressors after pericardiocentesis REcc: -Tele -Close monitoring of BP/HR -Continue albumin infusions -To have HD today repeat -Continue pressor support -DVT prophylaxis -F/U urine cx and continue abx's -Follow pigtail output with probable removal today after review of echo to assure no further significant accumulation Problems: Consultation Date/Type/Reason Admit Date/Time May 11, 2017 at 13:02 Initial Consult Date 05/12/17 Type of Consultation: cardiology Reason for Consultation pericardial effusion Referring Provider: TAWANA WYNN MD Exam/Review of Systems Vital Signs Vitals Vital Signs Date Time Temp Pulse Resp B/P Pulse Ox O2 Delivery O2 Flow Rate FiO2 05/16/17 12:00 75 05/16/17 11:30 20 109/47 Mechanical Ventilator 05/16/17 11:00 100 05/16/17 10:55 40 05/16/17 07:30 99.1 05/15/17 09:00 8.0 Intake and Output 05/15/17 05/15/17 05/16/17 15:00 23:00 07:00 Intake Total 155.0 ml 963.215 ml 188.468 ml Output Total 25 ml 2730 ml 195 ml Balance 130.0 ml -1766.785 ml -6.532 ml Exam Review of Systems: CONSTITUTIONAL: No fevers, chills. PULMONARY: No sob CARDIOVASCULAR: No chest pain/palpitations GASTROINTESTINAL: No nausea/vomiting. GENITOURINARY: No hematuria/dysuria. MUSCULOSKELETAL: No myagias/arthalgias. PSYCHIATRIC: The patient denies depression. NEUROLOGIC: No weakness Constitutional: other (sedated, intubated) Psych: no complaints Head: normocephalic ENMT: mucosa pink and moist Neck: jvd (9 cm water), supple Respiratory: diminished breath sounds (at bases/B) Cardiovascular: regular rate and rhythm Gastrointestinal: non-tender, soft Musculoskeletal: muscle tone (normal) Extremities: pitting pedal edema (bilateral) Neurological: other (No focal deficits) Results Result Diagram: 05/16/17 0400 05/16/17 0400 Results 24 hrs Laboratory Tests Test 05/15/17 13:00 05/15/17 14:26 05/15/17 15:00 05/16/17 04:00 Blood Gas Specimen Source Blood arterial Blood arterial Arterial Blood Date Drawn 05/15/2017 12:40:45 PM 05/15/2017 3:20:18 PM Arterial Blood pH (Temp corrected) 7.234 *L 7.327 L Arterial Blood pCO2 (Temp correct) 64.4 H 47.8 H Arterial Blood pO2 (Temp corrected) 149.9 H 344.9 H Arterial Blood HCO3 26.6 H 24.5 Arterial Blood Base Excess -1.1 -1.6 Arterial Blood Oxygen Saturation 98.9 99.6 Ned Test ACCEPTAB ACCEPTAB Arterial Blood Gas Puncture Site Left Radial Left Radial Arterial Blood Carboxyhemoglobin 0.5 0.3 Arterial Blood Methemoglobin 0.4 0.3 Blood Gas A-a O2 Differential 134.2 H 320.3 H Oxyhemoglobin Percent 98.0 99.0 Total Hemoglobin 7.6 L 8.3 L Blood Gas Temperature 37.0 37.0 Blood Gas Respiration Rate 24.0 20.0 Blood Gas Actual Respiration Rate 24 30 Blood Gas Modality MASK - BIPAP VENT - AC FiO2 50.0 100.0 Blood Gas IPAP/EPAP Ratio 22/8 Blood Gas Critical Value Read Back E REBECCA JAMESON Blood Gas Notified Whom FRANCIS BLANCO Blood Gas Notified Time 05/15/2017 1:03:41 PM 05/15/2017 3:27:47 PM Blood Gas Tidal Volume 500.0 Blood Gas Low PEEP Setting 5.0 Body Fluid Type Body Fluid Volume 850.0 Body Fluid Color RED Body Fluid Appearance CLOUDY Body Fluid WBC 4986 Body Fluid RBC (Auto) 429 Body Fluid Polynuclear WBCs (%) 51.1 Body Fluid Mononuclear Cells % Auto 48.9 Body Fluid Total Protein 5.6 White Blood Count 5.9 # Red Blood Count 2.02 L Hemoglobin 6.1 *L Hematocrit 19.1 #L Mean Corpuscular Volume 94.6 Mean Corpuscular Hemoglobin 30.2 Mean Corpuscular Hemoglobin Concent 31.9 L Red Cell Distribution Width 14.4 Platelet Count 161 # Mean Platelet Volume 10.7 H Neutrophils % 78.6 H Segmented Neutrophils % (Manual) 84 H Band Neutrophils % (Manual) 1 Lymphocytes % 8.3 L Lymphocytes % (Manual) 8 L Monocytes % 7.7 Monocytes % (Manual) 4 Eosinophils % 2.9 Eosinophils % (Manual) 3 Basophils % 0.3 Nucleated Red Blood Cells % 1 H Neutrophils # 4.6 Neutrophils # (Manual) 5.0 Band Neutrophils # 0.0 Absolute Lymphocytes (Manual) 0.4 L Lymphocytes # 0.5 L Monocytes # 0.5 Absolute Monocytes (Manual) 0.2 L Eosinophils # 0.2 Basophils # 0.0 Nucleated Red Blood Cells # 0.0 Platelet Estimate NORMAL Polychromasia 1+ Hypochromasia 1+ Poikilocytosis 1+ Anisocytosis 1+ Microcytosis 1+ Sodium Level 142 Potassium Level 3.8 Chloride Level 99 Carbon Dioxide Level 29 Anion Gap 18 H Blood Urea Nitrogen 66 #H Creatinine 2.60 #H Glucose Level 90 # Calcium Level 8.7 Test 05/16/17 10:00 Blood Gas Specimen Source Blood arterial Arterial Blood Date Drawn 05/16/2017 10:00:04 AM Arterial Blood pH (Temp corrected) 7.451 H Arterial Blood pCO2 (Temp correct) 41.8 Arterial Blood pO2 (Temp corrected) 114.1 H Arterial Blood HCO3 28.5 H Arterial Blood Base Excess 4.1 H Arterial Blood Oxygen Saturation 97.9 Ned Test ACCEPTAB Arterial Blood Gas Puncture Site Right Radial Arterial Blood Carboxyhemoglobin 0.3 Arterial Blood Methemoglobin 0.4 Blood Gas A-a O2 Differential 123.0 H Oxyhemoglobin Percent 97.2 Total Hemoglobin 9.1 L Blood Gas Temperature 37.0 Blood Gas Actual Respiration Rate 25 Blood Gas Modality VENT - CPAP FiO2 40.0 Blood Gas Low PEEP Setting 5.0 Blood Gas Pressure Support 10 Blood Gas Notified Whom Yessi CANTU Blood Gas Notified Time 05/16/2017 10:11:29 AM Medications Medications Current Medications Acetaminophen/ Hydrocodone Bitart ([place] (5/325)) 1 tab Q6H PRN PO MODERATE PAIN LEVEL 4-6 Last administered on 05/13/17 20:50; Admin Dose 1 TAB; Start 05/11/17 at 15:30 Zolpidem Tartrate (Ambien) 5 mg QHS PRN PO SLEEP Last administered on 23:07; Admin Dose 5 MG; Start 05/11/17 at 15:30 Heparin Sodium (Porcine) 5000 unit 5,000 unit Q12 SC Last administered on 05/14 20:32; Admin Dose 5,000 UNIT; Start 05/12/17 at 21:00; Status Future Hold Ceftriaxone Sodium 50 ml @ 100 mls/hr Q24H IVPB Last administered on 16:05; Admin Dose 100 MLS/HR; Start 05/12/17 at 15:30 Ferric Sodium Gluconate Complex/ Sodium Chloride (Ferrlecit/NS) 110 ml @ 110 mls/hr Q24H IVPB Last administered on 05/16/17 09:24; Admin Dose 110 MLS/HR; Start 05/13/17 at 10:00; Stop 05/17/17 at 10:59 Citric Acid/ Sodium Citrate (Bicitra) 30 ml TID PO Last administered on 20:15; Admin Dose 30 ML; Start 05/13/17 at 09:00 Nitroglycerin 1 tab 1 tab Q5M PRN SL ANGINA; Start 05/14/17 at 02:00 Norepinephrine 250 ml @ 1.875 mls/ hr TITRATE IV Last administered on 09:43; Admin Dose 7.5 MLS/HR; Start 05/14/17 at 04:30 Diltiazem HCl 125 ml @ 5 mls/hr TITRATE IV ; Start 05/14/17 at 19:30 Propofol (Diprivan) 100 ml @ 2.891 mls/ hr Q12H IV Last administered on 01:35; Admin Dose 11.563 MLS/HR; Start 05/15/17 at 14:30 IV Flush (NS 10 ml) 10 ml PRN PRN IV IV PROTOCOL; Start 05/15/17 at 14:30 Morphine Sulfate 1 mg 1 mg Q2 PRN IV PAIN NOT RELIEVED BY OTHERS; Start at 15:30 Amiodarone HCl/ Dextrose (Cordarone Iv/ D5W) 500 ml @ 0 mls/hr Q0M IV Last administered on 05/15/17 16:57; Admin Dose 33.4 MLS/HR; Start 05/15/17 at 17: 00; Stop 05/16/17 at 16:59 JOSLYN HOWARD May 16, 2017 12:34
[2017-05-16] MEDS: morphine 2 MG INJ IV PRN (14:28)
[2017-05-16] MEDS: CEFTRIAXONE 1 GM/50 ML (PMX) 50 ML IVPB SCH (14:34)
--- NOTE | 2017-05-16 14:36 | RADRPT ---
Echocardiogram Report Patient Name: MIKA TAMAYO Gender: Female Date: 1935 Study Date: 16-May-2017 [employer]: Yessi Santana [facility] Location: 120 Ref. Physician: JOSLYN CASTILLO Quality: Good Procedures: Transthoracic echocardiogram examination. Indications: Pericardial Effusion. Findings Pericardium: Small pericardial effusion. Conclusions 1.Small pericardial effusion. Electronically Signed By: Joslyn Castillo 16-May-2017 14:35:53 -0700 Patient Name: MIKA TAMAYO Study Date: 16-May-[id number]
--- NOTE | 2017-05-16 16:21 | CONS ---
Date/Time of Note Date/Time of Note DATE: 05/16/17 TIME: 16:19 Assessment/Plan Assessment/Plan Additional Assessment/Plan 1. 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 acute CHF exacerbation, acute on chronic, Systolic and diastolic 3. Acute Hypoxemic respiratory failure secondary to alveolar hypoventilation with hypercapnia and worsening mentation. 4. Large pericardial effusino s/p pericardiocentesis 850cc drained 5. Septic shock due to UIT, urine cx grew E.coli and Enterobacter 5. atrial firbillatino with RVR on amiodarone 6. 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 h/o HTN 8. H/o DM II 9. H/o HL 10.. Anemia of CKD< with iron deficiency - on IV iron with epogen Plan: started on hemodialysis on 05/14/2017- had UF with HD on 05/14/17- 2.5 L removed , another HD on 05/15/17- 2 L removed, Plan for HD today with ultrafiltration, goal is to remove 2 L as tolerated. rate control for atrial fibrillation S/P pericardiocentesis - 850cc drained, another 100 cc drained overnight. renal US c/w medical renal disease IV iron for anemia IV abx ceftriaxone for UTI, repeat UA and urine cx has been sent Cardiology , pulmonary has been following on patient. Pt was accepted for transfer to [facility] but currently she is not stable for transfer- we will wait for her to be more stable before getting transferred to [facility]. Consultation Date/Type/Reason Admit Date/Time May 11, 2017 at 13:02 Initial Consult Date 05/12/17 Type of Consultation: NEPHROLOGY Referring Provider: TAWANA DALY MD 24 HR Interval Summary Free Text/Dictation Currently on CPAP trial, BP stable, afebrile tolerating so far, possible plan for extubation after HD today Exam/Review of Systems Vital Signs Vitals Vital Signs Date Time Temp Pulse Resp B/P Pulse Ox O2 Delivery O2 Flow Rate FiO2 05/16/17 15:30 70 24 134/50 100 Nasal Cannula 4.0 05/16/17 13:05 40 05/16/17 12:00 98.0 Intake and Output 05/15/17 05/15/17 05/16/17 15:00 23:00 07:00 Intake Total 155.0 ml 963.215 ml 188.468 ml Output Total 25 ml 2730 ml 195 ml Balance 130.0 ml -1766.785 ml -6.532 ml Exam Constitutional: alert, other Psych: no complaints ENMT: other (ET tube in place ) Neck: jvd, other (+ Right IJ Pee HD catheter ), supple Respiratory: crackles/rales, diminished breath sounds Cardiovascular: irregular rhythm, regular rate and rhythm Gastrointestinal: non-tender, other (Morbid obesity ), soft Musculoskeletal: other (2-3+ pitting edema, no clubbing, no c yanosis ) 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, nl mental status, other (feeling weak and tried, but arousable and communicative ) Results Result Diagram: 05/16/17 0400 05/16/17 0400 Results 24 hrs Laboratory Tests Test 05/16/17 04:00 05/16/17 10:00 White Blood Count 5.9 # Red Blood Count 2.02 L Hemoglobin 6.1 *L Hematocrit 19.1 #L Mean Corpuscular Volume 94.6 Mean Corpuscular Hemoglobin 30.2 Mean Corpuscular Hemoglobin Concent 31.9 L Red Cell Distribution Width 14.4 Platelet Count 161 # Mean Platelet Volume 10.7 H Neutrophils % 78.6 H Segmented Neutrophils % (Manual) 84 H Band Neutrophils % (Manual) 1 Lymphocytes % 8.3 L Lymphocytes % (Manual) 8 L Monocytes % 7.7 Monocytes % (Manual) 4 Eosinophils % 2.9 Eosinophils % (Manual) 3 Basophils % 0.3 Nucleated Red Blood Cells % 1 H Neutrophils # 4.6 Neutrophils # (Manual) 5.0 Band Neutrophils # 0.0 Absolute Lymphocytes (Manual) 0.4 L Lymphocytes # 0.5 L Monocytes # 0.5 Absolute Monocytes (Manual) 0.2 L Eosinophils # 0.2 Basophils # 0.0 Nucleated Red Blood Cells # 0.0 Platelet Estimate NORMAL Polychromasia 1+ Hypochromasia 1+ Poikilocytosis 1+ Anisocytosis 1+ Microcytosis 1+ Sodium Level 142 Potassium Level 3.8 Chloride Level 99 Carbon Dioxide Level 29 Anion Gap 18 H Blood Urea Nitrogen 66 #H Creatinine 2.60 #H Glucose Level 90 # Calcium Level 8.7 Blood Gas Specimen Source Blood arterial Arterial Blood Date Drawn 05/16/2017 10:00:04 AM Arterial Blood pH (Temp corrected) 7.451 H Arterial Blood pCO2 (Temp correct) 41.8 Arterial Blood pO2 (Temp corrected) 114.1 H Arterial Blood HCO3 28.5 H Arterial Blood Base Excess 4.1 H Arterial Blood Oxygen Saturation 97.9 Ned Test ACCEPTAB Arterial Blood Gas Puncture Site Right Radial Arterial Blood Carboxyhemoglobin 0.3 Arterial Blood Methemoglobin 0.4 Blood Gas A-a O2 Differential 123.0 H Oxyhemoglobin Percent 97.2 Total Hemoglobin 9.1 L Blood Gas Temperature 37.0 Blood Gas Actual Respiration Rate 25 Blood Gas Modality VENT - CPAP FiO2 40.0 Blood Gas Low PEEP Setting 5.0 Blood Gas Pressure Support 10 Blood Gas Notified Whom Yessi CANTU Blood Gas Notified Time 05/16/2017 10:11:29 AM Medications Medications Current Medications Acetaminophen/ Hydrocodone Bitart ([place] (5/325)) 1 tab Q6H PRN PO MODERATE PAIN LEVEL 4-6 Last administered on 05/13/17 20:50; Admin Dose 1 TAB; Start 05/11/17 at 15:30 Zolpidem Tartrate (Ambien) 5 mg QHS PRN PO SLEEP Last administered on 23:07; Admin Dose 5 MG; Start 05/11/17 at 15:30 Heparin Sodium (Porcine) 5000 unit 5,000 unit Q12 SC Last administered on 05/14 20:32; Admin Dose 5,000 UNIT; Start 05/12/17 at 21:00; Status Future Hold Ceftriaxone Sodium 50 ml @ 100 mls/hr Q24H IVPB Last administered on 14:34; Admin Dose 100 MLS/HR; Start 05/12/17 at 15:30 Ferric Sodium Gluconate Complex/ Sodium Chloride (Ferrlecit/NS) 110 ml @ 110 mls/hr Q24H IVPB Last administered on 05/16/17 09:24; Admin Dose 110 MLS/HR; Start 05/13/17 at 10:00; Stop 05/17/17 at 10:59 Citric Acid/ Sodium Citrate (Bicitra) 30 ml TID PO Last administered on 20:15; Admin Dose 30 ML; Start 05/13/17 at 09:00 Nitroglycerin 1 tab 1 tab Q5M PRN SL ANGINA; Start 05/14/17 at 02:00 Norepinephrine 250 ml @ 1.875 mls/ hr TITRATE IV Last administered on 09:43; Admin Dose 7.5 MLS/HR; Start 05/14/17 at 04:30 Diltiazem HCl 125 ml @ 5 mls/hr TITRATE IV ; Start 05/14/17 at 19:30 Propofol (Diprivan) 100 ml @ 2.891 mls/ hr Q12H IV Last administered on 01:35; Admin Dose 11.563 MLS/HR; Start 05/15/17 at 14:30 IV Flush (NS 10 ml) 10 ml PRN PRN IV IV PROTOCOL; Start 05/15/17 at 14:30 Morphine Sulfate 1 mg 1 mg Q2 PRN IV PAIN NOT RELIEVED BY OTHERS Last administered on 05/16/17 14:28; Admin Dose 1 MG; Start 05/15/17 at 15:30 Amiodarone HCl/ Dextrose (Cordarone Iv/ D5W) 500 ml @ 0 mls/hr Q0M IV Last administered on 05/15/17 16:57; Admin Dose 33.4 MLS/HR; Start 05/15/17 at 17: 00; Stop 05/16/17 at 16:59 PREM FISCHER MD May 16, 2017 16:21
[2017-05-16] MEDS: ALBUTEROL/IPRATROPIUM (NEB) 3 ML AMP HHN SCH ×2 (16:46→20:32)
--- NOTE | 2017-05-16 16:53 | RADRPT ---
PROCEDURE: Chest radiograph CLINICAL INDICATION: Removal of pericardial drain. COMPARISON: Radiograph 05/15/2017. TECHNIQUE: Single frontal chest radiograph. FINDINGS: Interval removal of pericardial drain. Right internal jugular central venous catheter terminates in the superior vena cava. Left PICC is seen to the level of the subclavian vein. Both costophrenic sulci and diaphragms are partially obscured which may represent overlying soft tis sues or pleural effusions. Cardiomegaly. Bilateral breast implants with capsular calcifications. No suspicious bone lesion. IMPRESSION: 1. Interval removal of pericardial drain. 2. Cardiomegaly with small bilateral pleural effusions. 3. The left PICC is seen to the level of the subclavian vein which may be related to positioning of the left arm. RPTAT: EE Physician Mt Date Time Electronically viewed and signed by Physician Mt on 05/16/2017 16:52 LG/
--- NOTE | 2017-05-16 17:01 | RADRPT ---
PROCEDURE: XR Chest. CLINICAL INDICATION: Check PICC line position. TECHNIQUE: Single frontal view. COMPARISON: Prior study done earlier the same day. FINDINGS: There is a left arm PICC line with the tip in the the superior vena cava. The right internal jugula r temporary dialysis catheter is in the superior vena cava. There is mild atelectasis at the lung ba ses, unchanged. The lungs are otherwise clear. The heart is enlarged. There are small bilateral pleural effusions. There are bilateral breast implants. There is no pneumothorax. IMPRESSION: 1. Left arm PICC line tip in satisfactory position. 2. No other change from the prior study done earlier the same day. RPTAT: QQ .Felipe Salinas MD, MD Date Time Electronically viewed and signed by .Felipe Salinas MD, on 05/16/2017 17:01 .R/
[2017-05-16] MEDS ORDERED: SOD CHLORIDE 0.9% 100 ML ONE ×2 (19:12→19:19)
[2017-05-16] MEDS ORDERED: CITRIC ACID/NA CITRATE 15 ML CUP PO SCH (21:00)
[2017-05-16] MEDS: ZOLPIDEM 5 MG TAB PO PRN (22:11)
[2017-05-17] VITALS (44 sets, daily range): BP systolic 94–160; BP diastolic 35–84; PULSE 67–98; RESP 11–28
[2017-05-17] MEDS: ALBUTEROL/IPRATROPIUM (NEB) 3 ML AMP HHN SCH ×6 (00:08→20:42)
[2017-05-17] MEDS: PROPOFOL 100 ML IV SCH (01:39)
[2017-05-17 05:17] LABS: ABNORMAL IP MESSAGE 1; BASOPHILS % 0.3 % (0.0-2.0); EOSINOPHILS # 0.2 10^3/ul (0.0-0.5); EOSINOPHILS % 3.2 % (0.0-7.0); HEMATOCRIT 24.8 % (37.0-47.0); HEMOGLOBIN 7.8 g/dl (12.0-16.0); LYMPHOCYTES # 0.5 10^3/ul (0.8-2.9); LYMPHOCYTES % 6.8 % (15.0-51.0); MEAN CORPUSCULAR HGB CONC 31.5 g/dl (32.0-37.0); MEAN CORPUSCULAR VOLUME 95.4 fl (82.0-101.0); MEAN PLATELET VOLUME 10.6 fl (7.4-10.4); MONOCYTE # 0.5 10^3/ul (0.3-0.9); MONOCYTES % 7.3 % (0.0-11.0); NEUTROPHIL # 5.8 10^3/ul (1.6-7.5); NEUTROPHILS % 80.3 % (39.0-77.0); NUCLEATED RED BLOOD CELLS% 0.3 /100WBC (0.0-0.0); PLATELET COUNT 164 10^3/UL (140-415); RED CELL DISTRIBUTION WIDTH 15.8 % (11.5-14.5); WHITE BLOOD COUNT 7.3 10^3/ul (4.8-10.8)
[2017-05-17 05:22] LABS: POSITIVE DIFF @See below
[2017-05-17 05:38] LABS: CALCIUM 8.5 mg/dl (8.4-10.2); CREATININE 1.91 mg/dl (0.44-1.00); POTASSIUM 3.4 mmol/L (3.5-5.1)
[2017-05-17] MEDS: CITRIC ACID/SODIUM CITRATE 15 ML CUP PO SCH ×3 (09:17→20:30)
[2017-05-17] MEDS: SOD FERRIC GLUC COMPLX 125 MG in SOD CHLORIDE 0.9% 100 ML IVPB SCH (09:17)
--- NOTE | 2017-05-17 10:48 | CONS ---
Date/Time of Note Date/Time of Note DATE: 05/17/17 TIME: 10:43 Consult Date/Type/Reason Admit Date/Time May 11, 2017 at 13:02 Initial Consult Date 05/12/17 Type of Consultation: Pulmonary Ordering Provider: TAWANA DALY MD Subjective Patient awake alert comfortable no acute distress. Objective Vital Signs Date Time Temp Pulse Resp B/P Pulse Ox O2 Delivery O2 Flow Rate FiO2 05/17/17 10:00 75 23 121/35 100 Nasal Cannula 05/17/17 08:00 2.0 05/17/17 08:00 97.9 05/16/17 13:05 40 Intake and Output 05/16/17 05/16/17 05/17/17 15:00 23:00 07:00 Intake Total 1276.2 ml 100 ml 240 ml Output Total 3080 ml 145 ml 170 ml Balance -1803.8 ml -45 ml 70 ml Exam PHYSICAL EXAMINATION GENERAL: Elderly lady on room air appears comfortable at rest no acute distress VITAL SIGNS: see below. HEENT: Pupils equal, round, and reactive to light. CARDIAC: S1, S2, 1/6 systolic ejection murmur CHEST: Diminished air entry bilaterally. ABDOMEN: Mildly distended. Bowel sounds present no guarding or rebound EXTREMITIES: No cyanosis, clubbing edema +1 NEUROLOGIC: Generalized weakness Results/Medications Result Diagram: 05/17/17 0400 05/17/17 0400 Results 24 hrs Laboratory Tests Test 05/16/17 18:17 05/17/17 04:00 Bedside Glucose 105 White Blood Count 7.3 # Red Blood Count 2.60 #L Hemoglobin 7.8 #L Hematocrit 24.8 #L Mean Corpuscular Volume 95.4 Mean Corpuscular Hemoglobin 30.0 Mean Corpuscular Hemoglobin Concent 31.5 L Red Cell Distribution Width 15.8 H Platelet Count 164 Mean Platelet Volume 10.6 H Neutrophils % 80.3 H Lymphocytes % 6.8 L Monocytes % 7.3 Eosinophils % 3.2 Basophils % 0.3 Nucleated Red Blood Cells % 0.3 H Neutrophils # 5.8 Lymphocytes # 0.5 L Monocytes # 0.5 Eosinophils # 0.2 Basophils # 0.0 Nucleated Red Blood Cells # 0.0 Sodium Level 147 H Potassium Level 3.4 L Chloride Level 104 Carbon Dioxide Level 32 H Anion Gap 14 Blood Urea Nitrogen 47 #H Creatinine 1.91 H Glucose Level 98 Calcium Level 8.5 Medications Current Medications Acetaminophen/ Hydrocodone Bitart ([place] (5/325)) 1 tab Q6H PRN PO MODERATE PAIN LEVEL 4-6 Last administered on 05/13/17 20:50; Admin Dose 1 TAB; Start 05/11/17 at 15:30 Zolpidem Tartrate (Ambien) 5 mg QHS PRN PO SLEEP Last administered on 22:11; Admin Dose 5 MG; Start 05/11/17 at 15:30 Heparin Sodium (Porcine) 5000 unit 5,000 unit Q12 SC Last administered on 05/14 20:32; Admin Dose 5,000 UNIT; Start 05/12/17 at 21:00; Status Future Hold Ceftriaxone Sodium 50 ml @ 100 mls/hr Q24H IVPB Last administered on 14:34; Admin Dose 100 MLS/HR; Start 05/12/17 at 15:30 Ferric Sodium Gluconate Complex/ Sodium Chloride (Ferrlecit/NS) 110 ml @ 110 mls/hr Q24H IVPB Last administered on 05/17/17 09:17; Admin Dose 110 MLS/HR; Start 05/13/17 at 10:00; Stop 05/17/17 at 10:59 Nitroglycerin 1 tab 1 tab Q5M PRN SL ANGINA; Start 05/14/17 at 02:00 Diltiazem HCl (Cardizem-D5W 125 Mg/125 ml Drip) 125 ml @ 5 mls/hr TITRATE IV ; Start 05/14/17 at 19:30 IV Flush (NS 10 ml) 10 ml PRN PRN IV IV PROTOCOL; Start 05/15/17 at 14:30 Morphine Sulfate (morphine) 1 mg Q2 PRN IV PAIN NOT RELIEVED BY OTHERS Last administered on 05/16/17 14:28; Admin Dose 1 MG; Start 05/15/17 at 15:30 Citric Acid/ Sodium Citrate (Bicitra) 30 ml TID PO Last administered on 09:17; Admin Dose 30 ML; Start 05/17/17 at 09:00 Assessment/Plan Chief Complaint/Hosp Course IMPRESSION AND PLAN: 1. Hypoxemic respiratory failure required mechanical ventilation prior to pericardial drain. Stable on nasal cannula 2. Large pericardial effusion, status post pericardial drainage. Possibly secondary to uremia. 3. Renal failure, progressive to cardiorenal syndrome. 4. Atrial fibrillation with rapid ventricular rate. 5. Diabetic nephropathy per chart. 6. Escherichia coli urinary tract infection. 7. Drop in hemoglobin concerning for possible GI bleed. No evidence of worsening tamponade clinically. PLAN: Incentive spirometry Cardiac recommendations 3. Renal recommendations 4. Resume diet post extubation. 5. Rate control. 6. Deep venous thrombosis and gastrointestinal prophylaxis. 7. Transfer to telemetry okay from pulmonary standpoint Problems: LOVE CEVALLOS [facility] May 17, 2017 10:48
[2017-05-17] MEDS ORDERED: POTASSIUM CHLORIDE 20 MEQ in SOD CHLORIDE 0.9% 100 ML IVPB ONE (12:30)
--- NOTE | 2017-05-17 13:28 | RADRPT ---
Vent Rate: 74 bpm RR Interval: 0 msec LA Interval: 136 msec QRS Duration: 88 msec QT Interval: 416 msec QTC Interval: 461 msec P-R-T [place]: 37 - 15 - 39 degrees Sinus rhythm with premature atrial complexes Low voltage QRS Borderline ECG Electronically Signed By: Maurice San [id number]
--- NOTE | 2017-05-17 13:30 | RADRPT ---
Vent Rate: 60 bpm RR Interval: 0 msec [place] Interval: 144 msec QRS Duration: 94 msec QT Interval: 518 msec QTC Interval: 518 msec P-R-T [place]: 60 - 35 - 63 degrees Sinus rhythm with premature atrial complexes Prolonged QT Abnormal ECG Electronically Signed By: Maurice San [id number]
[2017-05-17 14:12] LABS: FLD RBC 429000 /uL
--- NOTE | 2017-05-17 16:51 | CONS ---
Date/Time of Note Date/Time of Note DATE: 05/17/17 TIME: 16:47 Assessment/Plan Assessment/Plan Additional Assessment/Plan 1. 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 acute CHF exacerbation, acute on chronic, Systolic and diastolic 3. Acute Hypoxemic respiratory failure secondary to alveolar hypoventilation with hypercapnia and worsening mentation. 4. Large pericardial effusino s/p pericardiocentesis 850cc drained on 05/15/17 5. Septic shock due to UIT, urine cx grew E.coli and Enterobacter 5. atrial firbillatino with RVR on amiodarone 6. 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 h/o HTN 8. H/o DM II 9. H/o HL 10.. Anemia of CKD< with iron deficiency - on IV iron with epogen Plan: started on hemodialysis on 05/14/2017- s/p 3 days in a row HD with Ultrafiltration, will plan for another ultrafiltrartion today . if stable after HD today, can go to telemetry bed. Raet controlled currently in NSR S/P pericardiocentesis - 850cc drained,drain in place renal US c/w medical renal disease IV iron for anemia IV abx for UTI, repeat Urine cx grew wilder albicans Cardiology , pulmonary has been following on patient. Pt was accepted for transfer to [facility] but currently she is not stable for transfer- we will wait for her to be more stable before getting transferred to [facility]. Consultation Date/Type/Reason Admit Date/Time May 11, 2017 at 13:02 Initial Consult Date 05/12/17 Type of Consultation: NEPHROLOGY Referring Provider: TAWANA DALY MD 24 HR Interval Summary Free Text/Dictation s/p Extubation yesterday,alert awake, Bp stable, HR in SR 70s, Exam/Review of Systems Vital Signs Vitals Vital Signs Date Time Temp Pulse Resp B/P Pulse Ox O2 Delivery O2 Flow Rate FiO2 05/17/17 15:40 98 17 05/17/17 15:40 124/54 99 05/17/17 12:52 Nasal Cannula 2.0 05/17/17 12:00 98.5 05/16/17 13:05 40 Intake and Output 05/16/17 05/16/17 05/17/17 15:00 23:00 07:00 Intake Total 1276.2 ml 100 ml 240 ml Output Total 3080 ml 145 ml 170 ml Balance -1803.8 ml -45 ml 70 ml Exam Constitutional: alert Psych: no complaints Eyes: nl conjunctiva Neck: jvd, other (Right IJ Pee catheter ) Respiratory: congested cough, crackles/rales, diminished breath sounds Cardiovascular: irregular rhythm, nl pulses, regular rate and rhythm Gastrointestinal: non-tender, soft Musculoskeletal: swelling (2-3+ pitting edema ) Extremities: normal pulses 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 Skin: nl turgor Results Result Diagram: 05/17/1739905/17/17 0400 Results 24 hrs Laboratory Tests Test 05/16/17 18:17 05/17/17 04:00 05/17/17 13:43 Bedside Glucose 105 132 White Blood Count 7.3 # Red Blood Count 2.60 #L Hemoglobin 7.8 #L Hematocrit 24.8 #L Mean Corpuscular Volume 95.4 Mean Corpuscular Hemoglobin 30.0 Mean Corpuscular Hemoglobin Concent 31.5 L Red Cell Distribution Width 15.8 H Platelet Count 164 Mean Platelet Volume 10.6 H Neutrophils % 80.3 H Lymphocytes % 6.8 L Monocytes % 7.3 Eosinophils % 3.2 Basophils % 0.3 Nucleated Red Blood Cells % 0.3 H Neutrophils # 5.8 Lymphocytes # 0.5 L Monocytes # 0.5 Eosinophils # 0.2 Basophils # 0.0 Nucleated Red Blood Cells # 0.0 Sodium Level 147 H Potassium Level 3.4 L Chloride Level 104 Carbon Dioxide Level 32 H Anion Gap 14 Blood Urea Nitrogen 47 #H Creatinine 1.91 H Glucose Level 98 Calcium Level 8.5 Medications Medications Current Medications Acetaminophen/ Hydrocodone Bitart ([place] (5/325)) 1 tab Q6H PRN PO MODERATE PAIN LEVEL 4-6 Last administered on 05/13/17 20:50; Admin Dose 1 TAB; Start 05/11/17 at 15:30 Zolpidem Tartrate (Ambien) 5 mg QHS PRN PO SLEEP Last administered on 22:11; Admin Dose 5 MG; Start 05/11/17 at 15:30 Heparin Sodium (Porcine) 5000 unit 5,000 unit Q12 SC Last administered on 05/14 20:32; Admin Dose 5,000 UNIT; Start 05/12/17 at 21:00; Status Future Hold Ceftriaxone Sodium (Rocephin) 50 ml @ 100 mls/hr Q24H IVPB Last administered on 05/16/17 14:34; Admin Dose 100 MLS/HR; Start 05/12/17 at 15:30 Nitroglycerin 1 tab 1 tab Q5M PRN SL ANGINA; Start 05/14/17 at 02:00 Diltiazem HCl (Cardizem-D5W 125 Mg/125 ml Drip) 125 ml @ 5 mls/hr TITRATE IV ; Start 05/14/17 at 19:30 IV Flush (NS 10 ml) 10 ml PRN PRN IV IV PROTOCOL; Start 05/15/17 at 14:30 Morphine Sulfate (morphine) 1 mg Q2 PRN IV PAIN NOT RELIEVED BY OTHERS Last administered on 05/16/17 14:28; Admin Dose 1 MG; Start 05/15/17 at 15:30 Citric Acid/ Sodium Citrate (Bicitra) 30 ml TID PO Last administered on 13:35; Admin Dose 30 ML; Start 05/17/17 at 09:00 PREM FISCHER MD May 17, 2017 16:51
--- NOTE | 2017-05-17 17:03 | PN ---
Date/Time of Note Date/Time of Note DATE: 05/17/17 TIME: 17:00 Assessment/Plan VTE Prophylaxis VTE Prophylaxis Intervention: heparin Assessment/Plan Chief Complaint/Hosp Course 1. Acute kidney injury secondary to sepsis from UTI on chronic CKD with fluid overload, uremia and hyperkalemia Continue dialysis per nephrology 2. Shock secondary to sepsis from UTI as well as pericardial effusion-resolved Now off pressors Patient is status post successful pericardiocentesis Urine culture shows E. coli Continue Rocephin 3. Acute encephalopathy secondary to hypercapnic respiratory failure Status post intubation, CO2 levels have improved CPAP trials today 4. Pericardial effusion status post successful pericardiocentesis 5. Obesity 6. Diabetes Continue insulin Prophylaxis: Heparin Problems: Subjective 24 Hr Interval Summary Constitutional: disoriented Exam/Review of Systems Vital Signs Vitals Vital Signs Date Time Temp Pulse Resp B/P Pulse Ox O2 Delivery O2 Flow Rate FiO2 05/17/17 16:53 97 2.0 05/17/17 16:53 77 18 Nasal Cannula 05/17/17 16:00 98.0 94/84 05/16/17 13:05 40 Intake and Output 05/16/17 05/16/17 05/17/17 15:00 23:00 07:00 Intake Total 1276.2 ml 100 ml 240 ml Output Total 3080 ml 145 ml 170 ml Balance -1803.8 ml -45 ml 70 ml Exam Psych: confusion Respiratory: clear to auscultation Cardiovascular: regular rate and rhythm Gastrointestinal: soft, No distended Musculoskeletal: nl extremities to inspection Results Result Diagram: 05/17/17 0400 05/17/17 0400 Results 24 hrs Laboratory Tests Test 05/16/17 18:17 05/17/17 04:00 05/17/17 13:43 Bedside Glucose 105 132 White Blood Count 7.3 # Red Blood Count 2.60 #L Hemoglobin 7.8 #L Hematocrit 24.8 #L Mean Corpuscular Volume 95.4 Mean Corpuscular Hemoglobin 30.0 Mean Corpuscular Hemoglobin Concent 31.5 L Red Cell Distribution Width 15.8 H Platelet Count 164 Mean Platelet Volume 10.6 H Neutrophils % 80.3 H Lymphocytes % 6.8 L Monocytes % 7.3 Eosinophils % 3.2 Basophils % 0.3 Nucleated Red Blood Cells % 0.3 H Neutrophils # 5.8 Lymphocytes # 0.5 L Monocytes # 0.5 Eosinophils # 0.2 Basophils # 0.0 Nucleated Red Blood Cells # 0.0 Sodium Level 147 H Potassium Level 3.4 L Chloride Level 104 Carbon Dioxide Level 32 H Anion Gap 14 Blood Urea Nitrogen 47 #H Creatinine 1.91 H Glucose Level 98 Calcium Level 8.5 Medications Medications Current Medications Acetaminophen/ Hydrocodone Bitart ([place] (5/325)) 1 tab Q6H PRN PO MODERATE PAIN LEVEL 4-6 Last administered on 05/13/17 20:50; Admin Dose 1 TAB; Start 05/11/17 at 15:30 Zolpidem Tartrate (Ambien) 5 mg QHS PRN PO SLEEP Last administered on 22:11; Admin Dose 5 MG; Start 05/11/17 at 15:30 Heparin Sodium (Porcine) 5000 unit 5,000 unit Q12 SC Last administered on 05/14 20:32; Admin Dose 5,000 UNIT; Start 05/12/17 at 21:00; Status Future Hold Ceftriaxone Sodium (Rocephin) 50 ml @ 100 mls/hr Q24H IVPB Last administered on 05/16/17 14:34; Admin Dose 100 MLS/HR; Start 05/12/17 at 15:30 Nitroglycerin 1 tab 1 tab Q5M PRN SL ANGINA; Start 05/14/17 at 02:00 Diltiazem HCl (Cardizem-D5W 125 Mg/125 ml Drip) 125 ml @ 5 mls/hr TITRATE IV ; Start 05/14/17 at 19:30 IV Flush (NS 10 ml) 10 ml PRN PRN IV IV PROTOCOL; Start 05/15/17 at 14:30 Morphine Sulfate (morphine) 1 mg Q2 PRN IV PAIN NOT RELIEVED BY OTHERS Last administered on 05/16/17 14:28; Admin Dose 1 MG; Start 05/15/17 at 15:30 Citric Acid/ Sodium Citrate (Bicitra) 30 ml TID PO Last administered on 13:35; Admin Dose 30 ML; Start 05/17/17 at 09:00 SINDHU LOPEZ May 17, 2017 17:03
[2017-05-17] MEDS: CEFTRIAXONE 1 GM/50 ML (PMX) 50 ML IVPB SCH (17:09)
--- NOTE | 2017-05-17 17:40 | CONS ---
Date/Time of Note Date/Time of Note DATE: 05/17/17 TIME: 17:37 Assessment/Plan Assessment/Plan Chief Complaint/Hosp Course IMPRESSION: 1. Pericardial effusion by 2D echo to assess significance-moderate by echo with some possible early echo tamponade features but no current clinical tamponade at this time. ? etiology concerning for uremic as BUN increasing 80 to greater than 100 vs viral/autoimmune. Patient had been refusing HD initiation and pericardiocentesis, stating that she wanted to be transferred to where her regular doctors are located. Patient had been made aware of the risks of refusing theses therapies, from myself, the treating weight analyst Dr. Cabrera Villalba, and primary, Dr. Wynn including possible hemodynamic demise and /resp failure but still did not want the above therapies. Patient last two days with worsening hypotension and sob requiring transfer to ICU and inititation of pressors and thus consented to HD and to pericardiocentesis 05/15 with removal of approx 800cc serosanguinous fluid and now improved BP/ hemodynamics 2. Shortness of breath, likely a combination of possible pneumonia as well as volume overload, congestive heart failure and pericardial effusion. 3. Hypotension-resolved s/p pericardiocentesis 4. Abnormal electrocardiogram 5. Generalized body aches, question viral syndrome. 6. Diabetes mellitus. 7. Renal failure, acute on chronic. 8. Anemia-worsening 9. Leukocytosis. 10. Urinary tract infection. 11. UTI 12. PAF- s/p amio IV with return to SR REcc: -Tele -Close monitoring of BP/HR -Continue albumin infusions -Continue aggressive HD -DVT prophylaxis -F/U urine cx and continue abx's -Follow rhythm closely. Not on systemic anticoag/asa due to worsening anemia Problems: Consultation Date/Type/Reason Admit Date/Time May 11, 2017 at 13:02 Initial Consult Date 05/12/17 Type of Consultation: cardiology Reason for Consultation pericardial effusion/tamponade Referring Provider: TAWANA WYNN MD Exam/Review of Systems Vital Signs Vitals Vital Signs Date Time Temp Pulse Resp B/P Pulse Ox O2 Delivery O2 Flow Rate FiO2 05/17/17 17:00 77 16 126/79 100 05/17/17 16:53 2.0 05/17/17 16:53 Nasal Cannula 05/17/17 16:00 98.0 05/16/17 13:05 40 Intake and Output 05/16/17 05/16/17 05/17/17 15:00 23:00 07:00 Intake Total 1276.2 ml 100 ml 240 ml Output Total 3080 ml 145 ml 170 ml Balance -1803.8 ml -45 ml 70 ml Exam Review of Systems: CONSTITUTIONAL: No fevers, chills. PULMONARY: No sob CARDIOVASCULAR: No chest pain/palpitations GASTROINTESTINAL: No nausea/vomiting. GENITOURINARY: No hematuria/dysuria. MUSCULOSKELETAL: No myagias/arthalgias. PSYCHIATRIC: The patient denies depression. NEUROLOGIC: No weakness Constitutional: alert Psych: no complaints Head: normocephalic ENMT: mucosa pink and moist Neck: jvd (9-10 cm water), supple Respiratory: diminished breath sounds (at bases/B) Cardiovascular: regular rate and rhythm Gastrointestinal: non-tender, soft Musculoskeletal: muscle tone (normal) Extremities: edema (none) Neurological: other (No focal deficits) Results Result Diagram: 05/17/17 0400 05/17/17 0400 Results 24 hrs Laboratory Tests Test 05/16/17 18:17 05/17/17 04:00 05/17/17 13:43 Bedside Glucose 105 132 White Blood Count 7.3 # Red Blood Count 2.60 #L Hemoglobin 7.8 #L Hematocrit 24.8 #L Mean Corpuscular Volume 95.4 Mean Corpuscular Hemoglobin 30.0 Mean Corpuscular Hemoglobin Concent 31.5 L Red Cell Distribution Width 15.8 H Platelet Count 164 Mean Platelet Volume 10.6 H Neutrophils % 80.3 H Lymphocytes % 6.8 L Monocytes % 7.3 Eosinophils % 3.2 Basophils % 0.3 Nucleated Red Blood Cells % 0.3 H Neutrophils # 5.8 Lymphocytes # 0.5 L Monocytes # 0.5 Eosinophils # 0.2 Basophils # 0.0 Nucleated Red Blood Cells # 0.0 Sodium Level 147 H Potassium Level 3.4 L Chloride Level 104 Carbon Dioxide Level 32 H Anion Gap 14 Blood Urea Nitrogen 47 #H Creatinine 1.91 H Glucose Level 98 Calcium Level 8.5 Medications Medications Current Medications Acetaminophen/ Hydrocodone Bitart ([place] (5/325)) 1 tab Q6H PRN PO MODERATE PAIN LEVEL 4-6 Last administered on 05/13/17 20:50; Admin Dose 1 TAB; Start 05/11/17 at 15:30 Zolpidem Tartrate (Ambien) 5 mg QHS PRN PO SLEEP Last administered on 22:11; Admin Dose 5 MG; Start 05/11/17 at 15:30 Heparin Sodium (Porcine) 5000 unit 5,000 unit Q12 SC Last administered on 05/14 20:32; Admin Dose 5,000 UNIT; Start 05/12/17 at 21:00; Status Future Hold Ceftriaxone Sodium (Rocephin) 50 ml @ 100 mls/hr Q24H IVPB Last administered on 05/17/17 17:09; Admin Dose 100 MLS/HR; Start 05/12/17 at 15:30 Nitroglycerin 1 tab 1 tab Q5M PRN SL ANGINA; Start 05/14/17 at 02:00 Diltiazem HCl (Cardizem-D5W 125 Mg/125 ml Drip) 125 ml @ 5 mls/hr TITRATE IV ; Start 05/14/17 at 19:30 IV Flush (NS 10 ml) 10 ml PRN PRN IV IV PROTOCOL; Start 05/15/17 at 14:30 Morphine Sulfate (morphine) 1 mg Q2 PRN IV PAIN NOT RELIEVED BY OTHERS Last administered on 05/16/17 14:28; Admin Dose 1 MG; Start 05/15/17 at 15:30 Citric Acid/ Sodium Citrate (Bicitra) 30 ml TID PO Last administered on 13:35; Admin Dose 30 ML; Start 05/17/17 at 09:00 JOSLYN HOWARD May 17, 2017 17:40
[2017-05-17] MEDS: PROMETHAZINE (1.25 MG/ML) 5 ML CUP PO PRN (20:29)
[2017-05-17] MEDS: ZOLPIDEM 5 MG TAB PO PRN (21:05)
[2017-05-18] VITALS (14 sets, daily range): BP systolic 115–157; BP diastolic 43–68; PULSE 74–81; RESP 18–20
[2017-05-18] MEDS: HYDROCODONE/APAP (5/325) TAB PO PRN ×3 (01:01→20:44)
[2017-05-18] MEDS: ALBUTEROL/IPRATROPIUM (NEB) 3 ML AMP HHN SCH ×6 (01:42→20:10)
[2017-05-18] MEDS: PROMETHAZINE (1.25 MG/ML) 5 ML CUP PO PRN ×3 (08:48→18:17)
[2017-05-18] MEDS: CITRIC ACID/SODIUM CITRATE 15 ML CUP PO SCH ×4 (08:48→20:47)
[2017-05-18 08:51] LABS: BASOPHILS % 0.3 % (0.0-2.0); EOSINOPHILS # 0.3 10^3/ul (0.0-0.5); EOSINOPHILS % 4.2 % (0.0-7.0); HEMATOCRIT 26.1 % (37.0-47.0); LYMPHOCYTES # 0.6 10^3/ul (0.8-2.9); LYMPHOCYTES % 8.6 % (15.0-51.0); MEAN CORPUSCULAR HEMOGLOBIN 30.3 pg (29.0-33.0); MEAN CORPUSCULAR HGB CONC 30.7 g/dl (32.0-37.0); MEAN CORPUSCULAR VOLUME 98.9 fl (82.0-101.0); MEAN PLATELET VOLUME 10.6 fl (7.4-10.4); MONOCYTE # 0.5 10^3/ul (0.3-0.9); MONOCYTES % 6.8 % (0.0-11.0); NEUTROPHIL # 5.4 10^3/ul (1.6-7.5); NEUTROPHILS % 77.2 % (39.0-77.0); PLATELET COUNT 145 10^3/UL (140-415); RED BLOOD COUNT 2.64 10^6/ul (4.20-5.40); RED CELL DISTRIBUTION WIDTH 15.3 % (11.5-14.5)
[2017-05-18 09:06] LABS: CALCIUM 8.2 mg/dl (8.4-10.2); CREATININE 1.42 mg/dl (0.44-1.00); POTASSIUM 3.1 mmol/L (3.5-5.1)
--- NOTE | 2017-05-18 09:19 | CONS ---
Date/Time of Note Date/Time of Note DATE: 05/18/17 TIME: 09:19 Assessment/Plan Assessment/Plan Additional Assessment/Plan 1. 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 acute CHF exacerbation, acute on chronic, Systolic and diastolic 3. Acute Hypoxemic respiratory failure secondary to alveolar hypoventilation with hypercapnia and worsening mentation. 4. Large pericardial effusino s/p pericardiocentesis 850cc drained on 05/15/17 5. Septic shock due to UIT, urine cx grew E.coli and Enterobacter 5. atrial firbillatino with RVR on amiodarone 6. 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 h/o HTN 8. H/o DM II 9. H/o HL 10.. Anemia of CKD< with iron deficiency - on IV iron with epogen Plan: started on hemodialysis on 05/14/2017- s/p 4 days in a row HD with Ultrafiltration, 8.5 Liter negative so far, no HD today, will plan for HD tomorrow . S/P pericardiocentesis - 850cc drained,drain in place renal US c/w medical renal disease IV iron for anemia IV abx for UTI, repeat Urine cx grew wilder albicans, currently she is on IV ceftriaxone Cardiology , pulmonary has been following on patient. Pt was accepted for transfer to [facility] but currently she is not stable for transfer- we will wait for her to be more stable before getting transferred to [facility]. Consultation Date/Type/Reason Admit Date/Time May 11, 2017 at 13:02 Initial Consult Date 05/12/17 Type of Consultation: NEPHROLOGY Referring Provider: TAWANA DALY MD 24 HR Interval Summary Free Text/Dictation pt transferred out of ICU, negative 8.5 L after 4 days HD in a row , stable no plan for HD today, will order HD for tomorrow Exam/Review of Systems Vital Signs Vitals Vital Signs Date Time Temp Pulse Resp B/P Pulse Ox O2 Delivery O2 Flow Rate FiO2 05/18/17 08:16 77 05/18/17 07:28 97.8 20 115/43 95 05/18/17 05:36 Nasal Cannula 3.0 05/16/17 13:05 40 Intake and Output 05/17/17 05/17/17 05/18/17 15:00 23:00 07:00 Intake Total 350 ml 1040 ml 100 ml Output Total 130 ml 4680 ml 300 ml Balance 220 ml -3640 ml -200 ml Exam Constitutional: alert Neck: jvd, other (Right IJ Pee catheter ) Respiratory: congested cough, crackles/rales, diminished breath sounds Cardiovascular: irregular rhythm, nl pulses, regular rate and rhythm Gastrointestinal: non-tender, soft Musculoskeletal: swelling (2-3+ pitting edema ) Extremities: normal pulses Neurological: FOREMAN/PROJECT MANAGER II-XII intact Skin: nl turgor Results Result Diagram: 05/18/1745 05/18/17 0745 Results 24 hrs Laboratory Tests Test 05/17/17 13:43 05/18/17 05:23 05/18/17 07:45 Bedside Glucose 132 Lab Scanned Report BLOOD TRANSFUSION White Blood Count 7.0 Red Blood Count 2.64 L Hemoglobin 8.0 L Hematocrit 26.1 L Mean Corpuscular Volume 98.9 Mean Corpuscular Hemoglobin 30.3 Mean Corpuscular Hemoglobin Concent 30.7 L Red Cell Distribution Width 15.3 H Platelet Count 145 Mean Platelet Volume 10.6 H Neutrophils % 77.2 H Lymphocytes % 8.6 L Monocytes % 6.8 Eosinophils % 4.2 Basophils % 0.3 Nucleated Red Blood Cells % 0.0 Neutrophils # 5.4 Lymphocytes # 0.6 L Monocytes # 0.5 Eosinophils # 0.3 Basophils # 0.0 Nucleated Red Blood Cells # 0.0 Sodium Level 145 H Potassium Level 3.1 L Chloride Level 107 Carbon Dioxide Level 31 Anion Gap 10 Blood Urea Nitrogen 32 #H Creatinine 1.42 H Glucose Level 124 Calcium Level 8.2 L Medications Medications Current Medications Acetaminophen/ Hydrocodone Bitart ([place] (5/325)) 1 tab Q6H PRN PO MODERATE PAIN LEVEL 4-6 Last administered on 05/18/17 01:01; Admin Dose 1 TAB; Start 05/11/17 at 15:30 Zolpidem Tartrate (Ambien) 5 mg QHS PRN PO SLEEP Last administered on 21:05; Admin Dose 5 MG; Start 05/11/17 at 15:30 Heparin Sodium (Porcine) 5000 unit 5,000 unit Q12 SC Last administered on 05/14 20:32; Admin Dose 5,000 UNIT; Start 05/12/17 at 21:00; Status Future Hold Ceftriaxone Sodium (Rocephin) 50 ml @ 100 mls/hr Q24H IVPB Last administered on 05/17/17 17:09; Admin Dose 100 MLS/HR; Start 05/12/17 at 15:30 Nitroglycerin 1 tab 1 tab Q5M PRN SL ANGINA; Start 05/14/17 at 02:00 Diltiazem HCl (Cardizem-D5W 125 Mg/125 ml Drip) 125 ml @ 5 mls/hr TITRATE IV ; Start 05/14/17 at 19:30 IV Flush (NS 10 ml) 10 ml PRN PRN IV IV PROTOCOL; Start 05/15/17 at 14:30 Morphine Sulfate (morphine) 1 mg Q2 PRN IV PAIN NOT RELIEVED BY OTHERS Last administered on 05/16/17 14:28; Admin Dose 1 MG; Start 05/15/17 at 15:30 Citric Acid/ Sodium Citrate (Bicitra) 30 ml TID PO Last administered on 20:30; Admin Dose 30 ML; Start 05/17/17 at 09:00 Promethazine HCl (Phenergan Liq) 6.25 mg Q4H PRN PO COUGH Last administered on 05/18/17 08:48; Admin Dose 6.25 MG; Start 05/17/17 at 19:30 PREM FISCHER MD May 18, 2017 09:19
--- NOTE | 2017-05-18 09:58 | CONS ---
Date/Time of Note Date/Time of Note DATE: 05/18/17 TIME: 09:56 Assessment/Plan Assessment/Plan Additional Assessment/Plan Assessment and recommendations; 1. Patient status post respiratory failure due to cardiac tamponade status post pericardial window placement. Status post extubation. 2. Renal insufficiency on admission with continually improving serum creatinine. 3. Anemia and thrombocytopenia. 4. Chronic atrial fibrillation. 5. E. coli UTI. Continue current treatment. Patient responding very well to current treatment regimen. Consultation Date/Type/Reason Admit Date/Time May 11, 2017 at 13:02 Initial Consult Date 05/12/17 Type of Consultation: Pulmonary Referring Provider: TAWANA DALY MD 24 HR Interval Summary Free Text/Dictation Patient condition is stable. Has been transferred out of ICU to medical floor. Denies any shortness of breath, chest pain, wheezing, cough or sputum production. General exam; elderly woman, awake and alert. Patient sitting in bed without any distress. Exam/Review of Systems Vital Signs Vitals Vital Signs Date Time Temp Pulse Resp B/P Pulse Ox O2 Delivery O2 Flow Rate FiO2 05/18/17 09:24 3.0 05/18/17 08:49 Nasal Cannula 05/18/17 08:16 77 05/18/17 07:28 97.8 20 115/43 95 05/16/17 13:05 40 Intake and Output 05/17/17 05/17/17 05/18/17 15:00 23:00 07:00 Intake Total 350 ml 1040 ml 100 ml Output Total 130 ml 4680 ml 300 ml Balance 220 ml -3640 ml -200 ml Exam HEENT exam; supple neck, positive JVD. No lymphadenopathy. Midline trachea. No thyromegaly. Pharynx clear. Pupils are small bilaterally. Chest exam; diminished but clear breath sounds. S1-S2 audible, no murmurs. Irregular rhythm. Abdomen exam; soft, recurrent. Nontender. No organomegaly. Bowel sounds audible. Extremities; trace edema. RETAIL CLERK exam; no focal deficit. Results Result Diagram: 05/18/17 0745 05/18/17 0745 Results 24 hrs Laboratory Tests Test 05/17/17 13:43 05/18/17 05:23 05/18/17 07:45 Bedside Glucose 132 Lab Scanned Report BLOOD TRANSFUSION White Blood Count 7.0 Red Blood Count 2.64 L Hemoglobin 8.0 L Hematocrit 26.1 L Mean Corpuscular Volume 98.9 Mean Corpuscular Hemoglobin 30.3 Mean Corpuscular Hemoglobin Concent 30.7 L Red Cell Distribution Width 15.3 H Platelet Count 145 Mean Platelet Volume 10.6 H Neutrophils % 77.2 H Lymphocytes % 8.6 L Monocytes % 6.8 Eosinophils % 4.2 Basophils % 0.3 Nucleated Red Blood Cells % 0.0 Neutrophils # 5.4 Lymphocytes # 0.6 L Monocytes # 0.5 Eosinophils # 0.3 Basophils # 0.0 Nucleated Red Blood Cells # 0.0 Sodium Level 145 H Potassium Level 3.1 L Chloride Level 107 Carbon Dioxide Level 31 Anion Gap 10 Blood Urea Nitrogen 32 #H Creatinine 1.42 H Glucose Level 124 Calcium Level 8.2 L Medications Medications Current Medications Acetaminophen/ Hydrocodone Bitart ([place] (5/325)) 1 tab Q6H PRN PO MODERATE PAIN LEVEL 4-6 Last administered on 05/18/17 01:01; Admin Dose 1 TAB; Start 05/11/17 at 15:30 Zolpidem Tartrate (Ambien) 5 mg QHS PRN PO SLEEP Last administered on 21:05; Admin Dose 5 MG; Start 05/11/17 at 15:30 Heparin Sodium (Porcine) 5000 unit 5,000 unit Q12 SC Last administered on 05/14 20:32; Admin Dose 5,000 UNIT; Start 05/12/17 at 21:00; Status Future Hold Ceftriaxone Sodium (Rocephin) 50 ml @ 100 mls/hr Q24H IVPB Last administered on 05/17/17 17:09; Admin Dose 100 MLS/HR; Start 05/12/17 at 15:30 Nitroglycerin 1 tab 1 tab Q5M PRN SL ANGINA; Start 05/14/17 at 02:00 Diltiazem HCl (Cardizem-D5W 125 Mg/125 ml Drip) 125 ml @ 5 mls/hr TITRATE IV ; Start 05/14/17 at 19:30 IV Flush (NS 10 ml) 10 ml PRN PRN IV IV PROTOCOL; Start 05/15/17 at 14:30 Morphine Sulfate (morphine) 1 mg Q2 PRN IV PAIN NOT RELIEVED BY OTHERS Last administered on 05/16/17 14:28; Admin Dose 1 MG; Start 05/15/17 at 15:30 Citric Acid/ Sodium Citrate (Bicitra) 30 ml TID PO Last administered on 20:30; Admin Dose 30 ML; Start 05/17/17 at 09:00 Promethazine HCl (Phenergan Liq) 6.25 mg Q4H PRN PO COUGH Last administered on 05/18/17 08:48; Admin Dose 6.25 MG; Start 05/17/17 at 19:30 LUIGI EDUARDO May 18, 2017 09:58
[2017-05-18] MEDS ORDERED: EPOETIN 3000 UNITS/1 ML INJ (ESRD) SC SCH (11:30)
--- NOTE | 2017-05-18 11:31 | PN ---
Date/Time of Note Date/Time of Note DATE: 05/18/17 TIME: 11:23 Assessment/Plan VTE Prophylaxis VTE Prophylaxis Intervention: heparin Assessment/Plan Chief Complaint/Hosp Course 1. Acute kidney injury secondary to sepsis from UTI on chronic CKD with fluid overload, uremia and hyperkalemia Continue dialysis per nephrology Monitor renal function 2. Shock secondary to sepsis from UTI as well as pericardial effusion-resolved Now off pressors Patient is status post successful pericardiocentesis Urine culture shows E. coli Continue Rocephin 3. Acute encephalopathy secondary to hypercapnic respiratory failure-resolved Patient oxygen saturation within normal limits at room air 4. Pericardial effusion status post successful pericardiocentesis 5. Obesity 6. Diabetes Continue insulin Prophylaxis: Heparin Disposition: Possible transfer to [facility] available versus patient staying at [facility] with discharge to rehab facility in the next several days Problems: Subjective 24 Hr Interval Summary Constitutional: no complaints Exam/Review of Systems Vital Signs Vitals Vital Signs Date Time Temp Pulse Resp B/P Pulse Ox O2 Delivery O2 Flow Rate FiO2 05/18/17 11: 98.5 73 20 120/54 94 05/18/17 09:24 3.0 05/18/17 08:49 Nasal Cannula 05/16/17 13:05 40 Intake and Output 05/17/17 05/17/17 05/18/17 15:00 23:00 07:00 Intake Total 350 ml 1040 ml 100 ml Output Total 130 ml 4680 ml 300 ml Balance 220 ml -3640 ml -200 ml Exam Constitutional: alert, oriented Respiratory: clear to auscultation Cardiovascular: regular rate and rhythm Gastrointestinal: soft, No distended Musculoskeletal: nl extremities to inspection Results Result Diagram: 05/18/17 0745 05/18/17 0745 Results 24 hrs Laboratory Tests Test 05/17/17 13:43 05/18/17 05:23 05/18/17 07:45 Bedside Glucose 132 Lab Scanned Report BLOOD TRANSFUSION White Blood Count 7.0 Red Blood Count 2.64 L Hemoglobin 8.0 L Hematocrit 26.1 L Mean Corpuscular Volume 98.9 Mean Corpuscular Hemoglobin 30.3 Mean Corpuscular Hemoglobin Concent 30.7 L Red Cell Distribution Width 15.3 H Platelet Count 145 Mean Platelet Volume 10.6 H Neutrophils % 77.2 H Lymphocytes % 8.6 L Monocytes % 6.8 Eosinophils % 4.2 Basophils % 0.3 Nucleated Red Blood Cells % 0.0 Neutrophils # 5.4 Lymphocytes # 0.6 L Monocytes # 0.5 Eosinophils # 0.3 Basophils # 0.0 Nucleated Red Blood Cells # 0.0 Sodium Level 145 H Potassium Level 3.1 L Chloride Level 107 Carbon Dioxide Level 31 Anion Gap 10 Blood Urea Nitrogen 32 #H Creatinine 1.42 H Glucose Level 124 Calcium Level 8.2 L Medications Medications Current Medications Acetaminophen/ Hydrocodone Bitart ([place] (5/325)) 1 tab Q6H PRN PO MODERATE PAIN LEVEL 4-6 Last administered on 05/18/17 01:01; Admin Dose 1 TAB; Start 05/11/17 at 15:30 Zolpidem Tartrate (Ambien) 5 mg QHS PRN PO SLEEP Last administered on 21:05; Admin Dose 5 MG; Start 05/11/17 at 15:30 Heparin Sodium (Porcine) 5000 unit 5,000 unit Q12 SC Last administered on 05/14 20:32; Admin Dose 5,000 UNIT; Start 05/12/17 at 21:00; Status Future Hold Ceftriaxone Sodium (Rocephin) 50 ml @ 100 mls/hr Q24H IVPB Last administered on 05/17/17 17:09; Admin Dose 100 MLS/HR; Start 05/12/17 at 15:30 Nitroglycerin 1 tab 1 tab Q5M PRN SL ANGINA; Start 05/14/17 at 02:00 Diltiazem HCl (Cardizem-D5W 125 Mg/125 ml Drip) 125 ml @ 5 mls/hr TITRATE IV ; Start 05/14/17 at 19:30 IV Flush (NS 10 ml) 10 ml PRN PRN IV IV PROTOCOL; Start 05/15/17 at 14:30 Morphine Sulfate (morphine) 1 mg Q2 PRN IV PAIN NOT RELIEVED BY OTHERS Last administered on 05/16/17 14:28; Admin Dose 1 MG; Start 05/15/17 at 15:30 Citric Acid/ Sodium Citrate (Bicitra) 30 ml TID PO Last administered on 20:30; Admin Dose 30 ML; Start 05/17/17 at 09:00 Promethazine HCl (Phenergan Liq) 6.25 mg Q4H PRN PO COUGH Last administered on 05/18/17t 08:48; Admin Dose 6.25 MG; Start 05/17/17 at 19:30 Epoetin [place] (Epogen (Esrd)) 6,000 units ONCE SC ; Start 05/18/17 at 11:30; Stop 05/18/17 at 22:00 Epoetin [place] (Epogen (Esrd)) 6,000 units TuThSa@17 SC ; Start 05/19/17 at 17:00 SINDHU LOPEZ May 18, 2017 11:31
[2017-05-18] MEDS ORDERED: POTASSIUM CHLORIDE (SR) 20 MEQ TAB PO STA (11:42)
--- NOTE | 2017-05-18 16:18 | CONS ---
Date/Time of Note Date/Time of Note DATE: 05/18/17 TIME: 16:14 Assessment/Plan Assessment/Plan Chief Complaint/Hosp Course IMPRESSION: 1. Pericardial effusion by 2D echo to assess significance-moderate by echo with some possible early echo tamponade features but no current clinical tamponade at this time. ? etiology concerning for uremic as BUN increasing 80 to greater than 100 vs viral/autoimmune. Patient had been refusing HD initiation and pericardiocentesis, stating that she wanted to be transferred to where her regular doctors are located. Patient had been made aware of the risks of refusing theses therapies, from myself, the treating mail messenger Dr. Cabrera Villalba, and primary, Dr. Wynn including possible hemodynamic demise and /resp failure but still did not want the above therapies. Patient last two days with worsening hypotension and sob requiring transfer to ICU and inititation of pressors and thus consented to HD and to pericardiocentesis 05/15 with removal of approx 800cc serosanguinous fluid and now improved BP/ hemodynamics transferred to tele 2. Shortness of breath, likely a combination of possible pneumonia as well as volume overload, congestive heart failure and pericardial effusion. 3. Hypotension-resolved s/p pericardiocentesis 4. Abnormal electrocardiogram 5. Generalized body aches, question viral syndrome. 6. Diabetes mellitus. 7. Renal failure, acute on chronic. 8. Anemia-worsening 9. Leukocytosis. 10. Urinary tract infection. 11. UTI 12. PAF- s/p amio IV with return to SR REcc: -Tele -Close monitoring of BP/HR -Continue abx's and f/u cx data -Continue HD as necessary/renal following -DVT prophylaxis -Follow rhythm closely. Not on systemic anticoag/asa due to worsening anemia Problems: Consultation Date/Type/Reason Admit Date/Time May 11, 2017 at 13:02 Initial Consult Date 05/12/17 Type of Consultation: cardiology Reason for Consultation pericardial effusion Referring Provider: TAWANA WYNN MD Exam/Review of Systems Vital Signs Vitals Vital Signs Date Time Temp Pulse Resp B/P Pulse Ox O2 Delivery O2 Flow Rate FiO2 05/18/17 15:34 98.2 84 20 157/68 95 05/18/17 13:18 Nasal Cannula 2.0 05/16/17 13:05 40 Intake and Output 1005/17/17 05/18/17 15:00 23:00 07:00 Intake Total 350 ml 1040 ml 100 ml Output Total 130 ml 4680 ml 300 ml Balance 220 ml -3640 ml -200 ml Exam Review of Systems: CONSTITUTIONAL: No fevers, chills. PULMONARY: ongoing sob CARDIOVASCULAR: No chest pain/palpitations GASTROINTESTINAL: No nausea/vomiting. GENITOURINARY: No hematuria/dysuria. MUSCULOSKELETAL: No myagias/arthalgias. PSYCHIATRIC: The patient denies depression. NEUROLOGIC: No weakness Constitutional: alert, oriented Psych: no complaints Head: normocephalic ENMT: mucosa pink and moist Neck: jvd (9 cm water), supple Respiratory: diminished breath sounds (at bases/B) Cardiovascular: regular rate and rhythm Gastrointestinal: non-tender, soft Musculoskeletal: muscle tone (normal) Extremities: edema (None) Neurological: other (No focal deficits) Results Result Diagram: 05/18/17 0745 05/18/17 0745 Results 24 hrs Laboratory Tests Test 05/18/17 05:23 05/18/17 07:45 Lab Scanned Report BLOOD TRANSFUSION White Blood Count 7.0 Red Blood Count 2.64 L Hemoglobin 8.0 L Hematocrit 26.1 L Mean Corpuscular Volume 98.9 Mean Corpuscular Hemoglobin 30.3 Mean Corpuscular Hemoglobin Concent 30.7 L Red Cell Distribution Width 15.3 H Platelet Count 145 Mean Platelet Volume 10.6 H Neutrophils % 77.2 H Lymphocytes % 8.6 L Monocytes % 6.8 Eosinophils % 4.2 Basophils % 0.3 Nucleated Red Blood Cells % 0.0 Neutrophils # 5.4 Lymphocytes # 0.6 L Monocytes # 0.5 Eosinophils # 0.3 Basophils # 0.0 Nucleated Red Blood Cells # 0.0 Sodium Level 145 H Potassium Level 3.1 L Chloride Level 107 Carbon Dioxide Level 31 Anion Gap 10 Blood Urea Nitrogen 32 #H Creatinine 1.42 H Glucose Level 124 Calcium Level 8.2 L Medications Medications Current Medications Acetaminophen/ Hydrocodone Bitart ([place] (5/325)) 1 tab Q6H PRN PO MODERATE PAIN LEVEL 4-6 Last administered on 05/18/17t 13:40; Admin Dose 1 TAB; Start 05/11/17 at 15:30 Zolpidem Tartrate (Ambien) 5 mg QHS PRN PO SLEEP Last administered on 21:05; Admin Dose 5 MG; Start 05/11/17 at 15:30 Heparin Sodium (Porcine) 5000 unit 5,000 unit Q12 SC Last administered on 05/14 20:32; Admin Dose 5,000 UNIT; Start 05/12/17 at 21:00; Status Future Hold Ceftriaxone Sodium (Rocephin) 50 ml @ 100 mls/hr Q24H IVPB Last administered on 05/17/17 17:09; Admin Dose 100 MLS/HR; Start 05/12/17 at 15:30 Nitroglycerin 1 tab 1 tab Q5M PRN SL ANGINA; Start 05/14/17 at 02:00 Diltiazem HCl (Cardizem-D5W 125 Mg/125 ml Drip) 125 ml @ 5 mls/hr TITRATE IV ; Start 05/14/17 at 19:30 IV Flush (NS 10 ml) 10 ml PRN PRN IV IV PROTOCOL; Start 05/15/17 at 14:30 Morphine Sulfate (morphine) 1 mg Q2 PRN IV PAIN NOT RELIEVED BY OTHERS Last administered on 05/16/17 14:28; Admin Dose 1 MG; Start 05/15/17 at 15:30 Citric Acid/ Sodium Citrate (Bicitra) 30 ml TID PO Last administered on 20:30; Admin Dose 30 ML; Start 05/17/17 at 09:00 Promethazine HCl (Phenergan Liq) 6.25 mg Q4H PRN PO COUGH Last administered on 05/18/17 13:53; Admin Dose 6.25 MG; Start 05/17/17 at 19:30 Epoetin [place] (Epogen (Esrd)) 6,000 units ONCE SC Last administered on 12:01; Admin Dose 6,000 UNITS; Start 05/18/17 at 11:30; Stop 05/18/17 at 22:00 Epoetin [place] (Epogen (Esrd)) 6,000 units TuThSa@17 SC ; Start 05/19/17 at 17:00 JOSLYN HOWARD May 18, 2017 16:18
--- NOTE | 2017-05-18 17:25 | RADRPT ---
PROCEDURE: XR Chest. CLINICAL INDICATION: Check line placement. TECHNIQUE: Single frontal view. COMPARISON: 05/16/2017. FINDINGS: There is a left arm PICC line with the tip in the the superior vena cava. The right internal jugular temporary dialysis catheter is in the superior vena cava. There is mild atelectasis at the lung bas es, unchanged. The lungs are otherwise clear. The heart is enlarged. There are small bilateral pleural effusions. There are bilateral breast implants. There is no pneumothorax. IMPRESSION: 1. No change from 05/16/2017. RPTAT: QQ .Felipe Salinas MD, MD Date Time Electronically viewed and signed by .Felipe Salinas MD, on 05/18/2017 17:25 .R/
[2017-05-18] MEDS: CEFTRIAXONE 1 GM/50 ML (PMX) 50 ML IVPB SCH (18:35)
[2017-05-19] VITALS (20 sets, daily range): BP systolic 105–147; BP diastolic 50–70; PULSE 79–156; RESP 18–20
[2017-05-19] MEDS: PROMETHAZINE (1.25 MG/ML) 5 ML CUP PO PRN ×3 (01:15→11:43)
[2017-05-19] MEDS: ALBUTEROL/IPRATROPIUM (NEB) 3 ML AMP HHN SCH ×6 (01:31→20:53)
[2017-05-19] MEDS: HYDROCODONE/APAP (5/325) TAB PO PRN ×2 (02:48→11:25)
[2017-05-19 06:41] LABS: BASOPHIL # 0.1 10^3/ul (0.0-0.1); BASOPHILS % 0.5 % (0.0-2.0); EOSINOPHILS # 0.3 10^3/ul (0.0-0.5); EOSINOPHILS % 3.5 % (0.0-7.0); HEMATOCRIT 28.8 % (37.0-47.0); HEMOGLOBIN 8.9 g/dl (12.0-16.0); LYMPHOCYTES # 0.6 10^3/ul (0.8-2.9); LYMPHOCYTES % 6.2 % (15.0-51.0); MEAN CORPUSCULAR HEMOGLOBIN 30.8 pg (29.0-33.0); MEAN CORPUSCULAR HGB CONC 30.9 g/dl (32.0-37.0); MEAN CORPUSCULAR VOLUME 99.7 fl (82.0-101.0); MEAN PLATELET VOLUME 10.5 fl (7.4-10.4); MONOCYTE # 0.6 10^3/ul (0.3-0.9); MONOCYTES % 5.8 % (0.0-11.0); NEUTROPHILS % 81.3 % (39.0-77.0); PLATELET COUNT 154 10^3/UL (140-415); RED BLOOD COUNT 2.89 10^6/ul (4.20-5.40); RED CELL DISTRIBUTION WIDTH 14.8 % (11.5-14.5); WHITE BLOOD COUNT 9.8 10^3/ul (4.8-10.8)
[2017-05-19 07:25] LABS: CALCIUM 8.6 mg/dl (8.4-10.2); CREATININE 1.69 mg/dl (0.44-1.00); POTASSIUM 4.3 mmol/L (3.5-5.1)
[2017-05-19] MEDS: CITRIC ACID/SODIUM CITRATE 15 ML CUP PO SCH ×4 (08:39→21:00)
--- NOTE | 2017-05-19 11:24 | PN ---
Date/Time of Note Date/Time of Note DATE: 05/19/17 TIME: 11:20 Assessment/Plan VTE Prophylaxis VTE Prophylaxis Intervention: heparin Assessment/Plan Chief Complaint/Hosp Course 1. Acute kidney injury secondary to sepsis from UTI on chronic CKD with fluid overload, uremia and hyperkalemia Continue dialysis per nephrology Monitor renal function, creatinine did increase slightly today after having not received dialysis yesterday 2. Shock secondary to sepsis from UTI as well as pericardial effusion-resolved Now off pressors Patient is status post successful pericardiocentesis Urine culture shows E. coli Status post 7 days of Rocephin, will DC 3. Acute encephalopathy secondary to hypercapnic respiratory failure-resolved Patient oxygen saturation within normal limits at room air 4. Pericardial effusion status post successful pericardiocentesis 5. Debility secondary to obesity Patient is mostly sedentary at baseline PT evaluation Patient will need intermediate placement 6. Diabetes Continue insulin Prophylaxis: Heparin Disposition: Possible transfer to [facility] versus patient staying at [facility] with discharge to rehab facility in the next several days Problems: Subjective 24 Hr Interval Summary Constitutional: no complaints Exam/Review of Systems Vital Signs Vitals Vital Signs Date Time Temp Pulse Resp B/P Pulse Ox O2 Delivery O2 Flow Rate FiO2 05/19/17 08:38 80 20 98 Nasal Cannula 3.0 05/19/17 07:47 98.8 126/58 05/16/17 13:05 40 Intake and Output 05/18/17 05/18/17 05/19/17 15:00 23:00 07:00 Intake Total 940 ml 120 ml Output Total 350 ml 500 ml Balance 590 ml -380 ml Exam Constitutional: alert Respiratory: clear to auscultation Cardiovascular: regular rate and rhythm Gastrointestinal: soft, No distended Musculoskeletal: nl extremities to inspection Results Result Diagram: 05/19/17 0602 05/19/17 0602 Results 24 hrs Laboratory Tests Test 05/19/17 06:02 White Blood Count 9.8 # Red Blood Count 2.89 L Hemoglobin 8.9 L Hematocrit 28.8 L Mean Corpuscular Volume 99.7 Mean Corpuscular Hemoglobin 30.8 Mean Corpuscular Hemoglobin Concent 30.9 L Red Cell Distribution Width 14.8 H Platelet Count 154 Mean Platelet Volume 10.5 H Neutrophils % 81.3 H Lymphocytes % 6.2 L Monocytes % 5.8 Eosinophils % 3.5 Basophils % 0.5 Nucleated Red Blood Cells % 0.0 Neutrophils # 8.0 H Lymphocytes # 0.6 L Monocytes # 0.6 Eosinophils # 0.3 Basophils # 0.1 Nucleated Red Blood Cells # 0.0 Sodium Level 144 Potassium Level 4.3 Chloride Level 103 Carbon Dioxide Level 32 H Anion Gap 13 Blood Urea Nitrogen 41 H Creatinine 1.69 H Glucose Level 112 Calcium Level 8.6 Medications Medications Current Medications Acetaminophen/ Hydrocodone Bitart ([place] (5/325)) 1 tab Q6H PRN PO MODERATE PAIN LEVEL 4-6 Last administered on 05/19/17 02:48; Admin Dose 1 TAB; Start 05/11/17 at 15:30 Zolpidem Tartrate (Ambien) 5 mg QHS PRN PO SLEEP Last administered on 21:05; Admin Dose 5 MG; Start 05/11/17 at 15:30 Heparin Sodium (Porcine) 5000 unit 5,000 unit Q12 SC Last administered on 05/14 20:32; Admin Dose 5,000 UNIT; Start 05/12/17 at 21:00; Status Future Hold Ceftriaxone Sodium (Rocephin) 50 ml @ 100 mls/hr Q24H IVPB Last administered on 05/18/17 18:35; Admin Dose 100 MLS/HR; Start 05/12/17 at 15:30 Nitroglycerin 1 tab 1 tab Q5M PRN SL ANGINA; Start 05/14/17 at 02:00 Diltiazem HCl (Cardizem-D5W 125 Mg/125 ml Drip) 125 ml @ 5 mls/hr TITRATE IV ; Start 05/14/17 at 19:30 IV Flush (NS 10 ml) 10 ml PRN PRN IV IV PROTOCOL; Start 05/15/17 at 14:30 Morphine Sulfate (morphine) 1 mg Q2 PRN IV PAIN NOT RELIEVED BY OTHERS Last administered on 05/16/17 14:28; Admin Dose 1 MG; Start 05/15/17 at 15:30 Citric Acid/ Sodium Citrate (Bicitra) 30 ml TID PO Last administered on 20:30; Admin Dose 30 ML; Start 05/17/17 at 09:00 Promethazine HCl (Phenergan Liq) 6.25 mg Q4H PRN PO COUGH Last administered on 05/19/17t 06:01; Admin Dose 6.25 MG; Start 05/17/17 at 19:30 Epoetin [place] (Epogen (Esrd)) 6,000 units TuTa@17 SC ; Start 05/19/17 at 17:00 SINDHU LOPEZ May 19, 2017 11:24
--- NOTE | 2017-05-19 11:49 | CONS ---
Date/Time of Note Date/Time of Note DATE: 05/19/17 TIME: 11:46 Consult Date/Type/Reason Admit Date/Time May 11, 2017 at 13:02 Initial Consult Date 05/12/17 Type of Consultation: Pulmonary Ordering Provider: TAWANA DALY MD Subjective Patient comfortable this morning. Denies any shortness of breath. Objective Vital Signs Date Time Temp Pulse Resp B/P Pulse Ox O2 Delivery O2 Flow Rate FiO2 05/19/17 11:40 98.2 80 20 133/52 96 05/19/17 08:38 Nasal Cannula 3.0 05/16/17 13:05 40 Intake and Output 05/18/17 05/18/17 05/19/17 15:00 23:00 07:00 Intake Total 940 ml 120 ml Output Total 350 ml 500 ml Balance 590 ml -380 ml Exam GENERAL: Well-nourished well-developed lady comfortable at rest VITAL SIGNS: per chart NECK: Supple. No JVD or lymphadenopathy. CARDIAC EXAM: S1, S2. No added sounds or murmurs. CHEST: clear bilaterally, No added sounds, rales or wheezes ABDOMEN: Soft, nontender. No guarding or rebound. EXTREMITIES: No cyanosis, clubbing or edema. NEUROLOGIC: Generalized weakness. No focal deficits. Results/Medications Result Diagram: 05/19/17 0602 05/19/17 0602 Results 24 hrs Laboratory Tests Test 05/19/17 06:02 White Blood Count 9.8 # Red Blood Count 2.89 L Hemoglobin 8.9 L Hematocrit 28.8 L Mean Corpuscular Volume 99.7 Mean Corpuscular Hemoglobin 30.8 Mean Corpuscular Hemoglobin Concent 30.9 L Red Cell Distribution Width 14.8 H Platelet Count 154 Mean Platelet Volume 10.5 H Neutrophils % 81.3 H Lymphocytes % 6.2 L Monocytes % 5.8 Eosinophils % 3.5 Basophils % 0.5 Nucleated Red Blood Cells % 0.0 Neutrophils # 8.0 H Lymphocytes # 0.6 L Monocytes # 0.6 Eosinophils # 0.3 Basophils # 0.1 Nucleated Red Blood Cells # 0.0 Sodium Level 144 Potassium Level 4.3 Chloride Level 103 Carbon Dioxide Level 32 H Anion Gap 13 Blood Urea Nitrogen 41 H Creatinine 1.69 H Glucose Level 112 Calcium Level 8.6 Medications Current Medications Acetaminophen/ Hydrocodone Bitart ([place] (5/325)) 1 tab Q6H PRN PO MODERATE PAIN LEVEL 4-6 Last administered on 05/19/17 11:25; Admin Dose 1 TAB; Start 05/11/17 at 15:30 Zolpidem Tartrate (Ambien) 5 mg QHS PRN PO SLEEP Last administered on 21:05; Admin Dose 5 MG; Start 05/11/17 at 15:30 Heparin Sodium (Porcine) (Heparin (5000 Units/0.5 ml)) 5,000 unit Q12 SC Last administered on 05/14/17 20:32; Admin Dose 5,000 UNIT; Start 05/12/17 at 21: 00; Status Future Hold Nitroglycerin 1 tab 1 tab Q5M PRN SL ANGINA; Start 05/14/17 at 02:00 Diltiazem HCl (Cardizem-D5W 125 Mg/125 ml Drip) 125 ml @ 5 mls/hr TITRATE IV ; Start 05/14/17 at 19:30 IV Flush (NS 10 ml) 10 ml PRN PRN IV IV PROTOCOL; Start 05/15/17 at 14:30 Morphine Sulfate (morphine) 1 mg Q2 PRN IV PAIN NOT RELIEVED BY OTHERS Last administered on 05/16/17 14:28; Admin Dose 1 MG; Start 05/15/17 at 15:30 Citric Acid/ Sodium Citrate (Bicitra) 30 ml TID PO Last administered on 20:30; Admin Dose 30 ML; Start 05/17/17 at 09:00 Promethazine HCl (Phenergan Liq) 6.25 mg Q4H PRN PO COUGH Last administered on 05/19/17 11:43; Admin Dose 6.25 MG; Start 05/17/17 at 19:30 Epoetin [place] (Epogen (Esrd)) 6,000 units TuThSa@17 SC ; Start 05/19/17 at 17:00 Assessment/Plan Chief Complaint/Hosp Course IMPRESSION AND PLAN: 1. Hypoxemic respiratory failure required mechanical ventilation prior to pericardial drain. Stable on nasal cannula 2. Large pericardial effusion, status post pericardial drainage. Possibly secondary to uremia. Significant clinical improvement following pericardiocentesis 3. Renal failure, progressive to cardiorenal syndrome. 4. Atrial fibrillation with rapid ventricular rate. 5. Diabetic nephropathy per chart. 6. Escherichia coli urinary tract infection. 7. Drop in hemoglobin concerning for possible GI bleed. No evidence of worsening tamponade clinically. PLAN: 1. Incentive spirometry 2. Cardiac recommendations 3. Renal recommendations 4. Physical therapy encourage out of bed. 5. Rate control. 6. Deep venous thrombosis and gastrointestinal prophylaxis. DC planning okay from pulmonary standpoint Problems: LOVE CEVALLOS MD, [facility] May 19, 2017 11:49
--- NOTE | 2017-05-19 12:57 | CONS ---
Date/Time of Note Date/Time of Note DATE: 05/19/17 TIME: 12:53 Assessment/Plan Assessment/Plan Additional Assessment/Plan PAF in NSR Pericardial effusion s/p pericardiocentesis Acute on chronic diastolic heart failure Abnormal electrocardiogram Diabetes mellitus. Renal failure on HD Anemia Urinary tract infection. hemodynamically stable in NSR Continue Diltiazem Not on anticoagulation due to severe anemia HD as scheduled Monitor on Tele Keep Mag > 2 and Potassium > 4 Consultation Date/Type/Reason Admit Date/Time May 11, 2017 at 13:02 Constitutional: no complaints Eyes: no complaints ENT: congestion Respiratory: pleuritic pain, shortness of breath Cardiovascular: no complaints Gastrointestinal: no complaints Genitourinary: no complaints Musculoskeletal: no complaints Skin: no complaints Neurologic: no complaints Endocrine: no complaints Lymphatic: no complaints Psychological: no complaints Past Medical History Medical History: congestive heart failure, coronary artery disease, diabetes Past Surgical History Past Surgical Hx: no surgical history Social History Alcohol Use: none Smoking Status: Never smoker Drug Use: none Exam/Review of Systems Vital Signs Vitals Vital Signs Date Time Temp Pulse Resp B/P Pulse Ox O2 Delivery O2 Flow Rate FiO2 05/19/17 12:18 83 05/19/17 11:40 98.2 20 133/52 96 05/19/17 08:38 Nasal Cannula 3.0 05/16/17 13:05 40 Intake and Output 05/18/17 05/18/17 05/19/17 15:00 23:00 07:00 Intake Total 940 ml 120 ml Output Total 350 ml 500 ml Balance 590 ml -380 ml Exam Constitutional: alert, oriented Head: atraumatic, normocephalic Neck: non-tender, supple Respiratory: diminished breath sounds Cardiovascular: regular rate and rhythm Gastrointestinal: nl liver, spleen, non-tender, soft Extremities: normal pulses Results Result Diagram: 05/19/17 0602 05/19/17 0602 Results 24 hrs Laboratory Tests Test 05/19/17 06:02 White Blood Count 9.8 # Red Blood Count 2.89 L Hemoglobin 8.9 L Hematocrit 28.8 L Mean Corpuscular Volume 99.7 Mean Corpuscular Hemoglobin 30.8 Mean Corpuscular Hemoglobin Concent 30.9 L Red Cell Distribution Width 14.8 H Platelet Count 154 Mean Platelet Volume 10.5 H Neutrophils % 81.3 H Lymphocytes % 6.2 L Monocytes % 5.8 Eosinophils % 3.5 Basophils % 0.5 Nucleated Red Blood Cells % 0.0 Neutrophils # 8.0 H Lymphocytes # 0.6 L Monocytes # 0.6 Eosinophils # 0.3 Basophils # 0.1 Nucleated Red Blood Cells # 0.0 Sodium Level 144 Potassium Level 4.3 Chloride Level 103 Carbon Dioxide Level 32 H Anion Gap 13 Blood Urea Nitrogen 41 H Creatinine 1.69 H Glucose Level 112 Calcium Level 8.6 Medications Medications Current Medications Acetaminophen/ Hydrocodone Bitart ([place] (5/325)) 1 tab Q6H PRN PO MODERATE PAIN LEVEL 4-6 Last administered on 05/19/17 11:25; Admin Dose 1 TAB; Start 05/11/17 at 15:30 Zolpidem Tartrate (Ambien) 5 mg QHS PRN PO SLEEP Last administered on 21:05; Admin Dose 5 MG; Start 05/11/17 at 15:30 Heparin Sodium (Porcine) (Heparin (5000 Units/0.5 ml)) 5,000 unit Q12 SC Last administered on 05/14/17 20:32; Admin Dose 5,000 UNIT; Start 05/12/17 at 21: 00; Status Future Hold Nitroglycerin 1 tab 1 tab Q5M PRN SL ANGINA; Start 05/14/17 at 02:00 Diltiazem HCl (Cardizem-D5W 125 Mg/125 ml Drip) 125 ml @ 5 mls/hr TITRATE IV ; Start 05/14/17 at 19:30 IV Flush (NS 10 ml) 10 ml PRN PRN IV IV PROTOCOL; Start 05/15/17 at 14:30 Morphine Sulfate (morphine) 1 mg Q2 PRN IV PAIN NOT RELIEVED BY OTHERS Last administered on 05/16/17 14:28; Admin Dose 1 MG; Start 05/15/17 at 15:30 Citric Acid/ Sodium Citrate (Bicitra) 30 ml TID PO Last administered on 20:30; Admin Dose 30 ML; Start 05/17/17 at 09:00 Promethazine HCl (Phenergan Liq) 6.25 mg Q4H PRN PO COUGH Last administered on 05/19/17 11:43; Admin Dose 6.25 MG; Start 05/17/17 at 19:30 Epoetin [place] (Epogen (Esrd)) 6,000 units [email or web address] ; Start 05/19/17 at 17:00 FERNANDO JOHNS M.D. May 19, 2017 12:57
[2017-05-19] MEDS: morphine 2 MG INJ IV PRN ×2 (12:59→21:38)
--- NOTE | 2017-05-19 13:15 | CONS ---
Date/Time of Note Date/Time of Note DATE: 05/19/17 TIME: 13:12 Assessment/Plan Assessment/Plan Additional Assessment/Plan 1. Acute kidney injury on CKD III/IV with worsenign uremia- now with fluid overload, hyperkalemia and Cardiorenal syndrome causing atrial fibrillation with RVR - started on hemodialysis on 05/14/2017 - getting HD now 2. acute CHF exacerbation, acute on chronic, Systolic and diastolic 3. Acute Hypoxemic respiratory failure secondary to alveolar hypoventilation with hypercapnia and worsening mentation. 4. Large pericardial effusino s/p pericardiocentesis 850cc drained on 05/15/17 5. Septic shock due to UIT, urine cx grew E.coli and Enterobacter 5. atrial firbillatino with RVR on amiodarone 6. 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 h/o HTN 8. H/o DM II 9. H/o HL 10.. Anemia of CKD< with iron deficiency - on IV iron with epogen Plan: started on hemodialysis on 05/14/2017- s/p 4 days in a row HD with Ultrafiltration, 8.5 Liter negative so far, no HD today, will plan for HD today S/P pericardiocentesis - 850cc drained,drain in place renal US c/w medical renal disease IV iron for anemia IV abx for UTI, repeat Urine cx grew wilder albicans, currently she is on IV ceftriaxone Cardiology , pulmonary has been following on patient. Pt was accepted for transfer to [facility] but currently she is not stable for transfer- we will wait for her to be more stable before getting transferred to [facility]. - Plan of care kvng Villalba/staff Consultation Date/Type/Reason Admit Date/Time May 11, 2017 at 13:02 Initial Consult Date 05/12/17 Type of Consultation: Pulmonary Referring Provider: TAWANA DALY MD 24 HR Interval Summary Free Text/Dictation alert, awake, getting HD now- tolerating well,c/o cough- got cough medicine. dw staff Detailed Summary Respiratory: cough Cardiovascular: no complaints Gastrointestinal: no complaints Genitourinary: no complaints Musculoskeletal: no complaints Exam/Review of Systems Vital Signs Vitals Vital Signs Date Time Temp Pulse Resp B/P Pulse Ox O2 Delivery O2 Flow Rate FiO2 05/19/17 12:18 83 05/19/17 11:40 98.2 20 133/52 96 05/19/17 08:38 Nasal Cannula 3.0 05/16/17 13:05 40 Intake and Output 05/18/17 05/18/17 05/19/17 15:00 23:00 07:00 Intake Total 940 ml 120 ml Output Total 350 ml 500 ml Balance 590 ml -380 ml Exam Constitutional: alert, obese, oriented Psych: nl mood/affect Respiratory: diminished breath sounds, normal air movement Gastrointestinal: non-tender, soft Musculoskeletal: nl extremities to inspection Extremities: normal pulses Neurological: nl mental status, nl speech Results Result Diagram: 05/19/17 0602 05/19/17 0602 Results 24 hrs Laboratory Tests Test 05/19/17 06:02 White Blood Count 9.8 # Red Blood Count 2.89 L Hemoglobin 8.9 L Hematocrit 28.8 L Mean Corpuscular Volume 99.7 Mean Corpuscular Hemoglobin 30.8 Mean Corpuscular Hemoglobin Concent 30.9 L Red Cell Distribution Width 14.8 H Platelet Count 154 Mean Platelet Volume 10.5 H Neutrophils % 81.3 H Lymphocytes % 6.2 L Monocytes % 5.8 Eosinophils % 3.5 Basophils % 0.5 Nucleated Red Blood Cells % 0.0 Neutrophils # 8.0 H Lymphocytes # 0.6 L Monocytes # 0.6 Eosinophils # 0.3 Basophils # 0.1 Nucleated Red Blood Cells # 0.0 Sodium Level 144 Potassium Level 4.3 Chloride Level 103 Carbon Dioxide Level 32 H Anion Gap 13 Blood Urea Nitrogen 41 H Creatinine 1.69 H Glucose Level 112 Calcium Level 8.6 Medications Medications Current Medications Acetaminophen/ Hydrocodone Bitart ([place] (5/325)) 1 tab Q6H PRN PO MODERATE PAIN LEVEL 4-6 Last administered on 05/19/17 11:25; Admin Dose 1 TAB; Start 05/11/17 at 15:30 Zolpidem Tartrate (Ambien) 5 mg QHS PRN PO SLEEP Last administered on 21:05; Admin Dose 5 MG; Start 05/11/17 at 15:30 Heparin Sodium (Porcine) (Heparin (5000 Units/0.5 ml)) 5,000 unit Q12 SC Last administered on 05/14/17 20:32; Admin Dose 5,000 UNIT; Start 05/12/17 at 21: 00; Status Future Hold Nitroglycerin 1 tab 1 tab Q5M PRN SL ANGINA; Start 05/14/17 at 02:00 Diltiazem HCl (Cardizem-D5W 125 Mg/125 ml Drip) 125 ml @ 5 mls/hr TITRATE IV ; Start 05/14/17 at 19:30 IV Flush (NS 10 ml) 10 ml PRN PRN IV IV PROTOCOL; Start 05/15/17 at 14:30 Morphine Sulfate (morphine) 1 mg Q2 PRN IV PAIN NOT RELIEVED BY OTHERS Last administered on 05/19/17 12:59; Admin Dose 1 MG; Start 05/15/17 at 15:30 Citric Acid/ Sodium Citrate (Bicitra) 30 ml TID PO Last administered on 20:30; Admin Dose 30 ML; Start 05/17/17 at 09:00 Promethazine HCl (Phenergan Liq) 6.25 mg Q4H PRN PO COUGH Last administered on 05/19/17 11:43; Admin Dose 6.25 MG; Start 05/17/17 at 19:30 Epoetin [place] (Epogen (Esrd)) 6,000 units TuThSa@17 SC ; Start 05/19/17 at 17:00 ALENA LEUNG May 19, 2017 13:15
[2017-05-19] MEDS ORDERED: morphine 2 MG INJ IV ONE (13:30)
[2017-05-19] MEDS ORDERED: PROMETHAZINE/CODEINE 5ML CUP PO PRN (14:30)
[2017-05-19] MEDS: EPOETIN 3000 UNITS/1 ML INJ (ESRD) SC SCH (17:41)
[2017-05-20] VITALS (12 sets, daily range): BP systolic 101–138; BP diastolic 49–86; PULSE 77–103; RESP 18–20
[2017-05-20] MEDS ORDERED: LACTULOSE 30ML CUP PO SCH
[2017-05-20] MEDS: ALBUTEROL/IPRATROPIUM (NEB) 3 ML AMP HHN SCH ×6 (00:50→20:00)
[2017-05-20] MEDS ORDERED: LACTULOSE 30ML CUP PO PRN (04:00)
[2017-05-20] MEDS: CEPASTAT LOZENGE MT PRN ×4 (05:56→20:32)
[2017-05-20] MEDS: LIDOCAINE 2% VISC 15 ML CUP PO PRN ×3 (05:56→21:41)
[2017-05-20 08:09] LABS: BASOPHILS % 0.4 % (0.0-2.0); EOSINOPHILS # 0.3 10^3/ul (0.0-0.5); EOSINOPHILS % 3.1 % (0.0-7.0); HEMATOCRIT 28.6 % (37.0-47.0); HEMOGLOBIN 8.7 g/dl (12.0-16.0); LYMPHOCYTES # 0.7 10^3/ul (0.8-2.9); LYMPHOCYTES % 7.4 % (15.0-51.0); MEAN CORPUSCULAR HEMOGLOBIN 30.3 pg (29.0-33.0); MEAN CORPUSCULAR HGB CONC 30.4 g/dl (32.0-37.0); MEAN CORPUSCULAR VOLUME 99.7 fl (82.0-101.0); MEAN PLATELET VOLUME 10.7 fl (7.4-10.4); MONOCYTE # 0.7 10^3/ul (0.3-0.9); MONOCYTES % 7.3 % (0.0-11.0); NEUTROPHIL # 7.5 10^3/ul (1.6-7.5); NEUTROPHILS % 78.1 % (39.0-77.0); PLATELET COUNT 166 10^3/UL (140-415); RED BLOOD COUNT 2.87 10^6/ul (4.20-5.40); RED CELL DISTRIBUTION WIDTH 14.8 % (11.5-14.5); WHITE BLOOD COUNT 9.7 10^3/ul (4.8-10.8)
[2017-05-20 08:33] LABS: CALCIUM 8.4 mg/dl (8.4-10.2); CREATININE 1.76 mg/dl (0.44-1.00); POTASSIUM 4.2 mmol/L (3.5-5.1)
[2017-05-20] MEDS: CITRIC ACID/SODIUM CITRATE 15 ML CUP PO SCH ×3 (09:00→20:32)
--- NOTE | 2017-05-20 10:20 | CONS ---
Date/Time of Note Date/Time of Note DATE: 05/20/17 TIME: 10:19 Consult Date/Type/Reason Admit Date/Time May 11, 2017 at 13:02 Initial Consult Date 05/12/17 Type of Consultation: Pulmonary Ordering Provider: TAWANA DALY MD Subjective Comfortable this morning sitting up in chair. Objective Vital Signs Date Time Temp Pulse Resp B/P Pulse Ox O2 Delivery O2 Flow Rate FiO2 05/20/17 08:15 3.0 05/20/17 08:15 82 20 98 Nasal Cannula 05/20/17 08:04 98.5 102/50 05/16/17 13:05 40 Intake and Output 05/19/17 05/19/17 05/20/17 15:00 23:00 07:00 Intake Total 500 ml 750 ml Output Total 3000 ml 300 ml Balance -2500 ml 450 ml Exam GENERAL: Well-nourished well-developed lady comfortable at rest VITAL SIGNS: per chart NECK: Supple. No JVD or lymphadenopathy. CARDIAC EXAM: S1, S2. No added sounds or murmurs. CHEST: clear bilaterally, No added sounds, rales or wheezes ABDOMEN: Soft, nontender. No guarding or rebound. EXTREMITIES: No cyanosis, clubbing or edema. NEUROLOGIC: Generalized weakness. No focal deficits. Results/Medications Result Diagram: 05/20/17 0736 05/20/17 0738 Results 24 hrs Laboratory Tests Test 05/19/17 13:31 05/20/17 07:36 05/20/17 07:38 Troponin I 0.016 White Blood Count 9.7 Red Blood Count 2.87 L Hemoglobin 8.7 L Hematocrit 28.6 L Mean Corpuscular Volume 99.7 Mean Corpuscular Hemoglobin 30.3 Mean Corpuscular Hemoglobin Concent 30.4 L Red Cell Distribution Width 14.8 H Platelet Count 166 Mean Platelet Volume 10.7 H Neutrophils % 78.1 H Lymphocytes % 7.4 L Monocytes % 7.3 Eosinophils % 3.1 Basophils % 0.4 Nucleated Red Blood Cells % 0.0 Neutrophils # 7.5 Lymphocytes # 0.7 L Monocytes # 0.7 Eosinophils # 0.3 Basophils # 0.0 Nucleated Red Blood Cells # 0.0 Sodium Level 140 Potassium Level 4.2 Chloride Level 97 Carbon Dioxide Level 33 H Anion Gap 14 Blood Urea Nitrogen 33 H Creatinine 1.76 H Glucose Level 109 Calcium Level 8.4 Medications Current Medications Acetaminophen/ Hydrocodone Bitart ([place] (5/325)) 1 tab Q6H PRN PO MODERATE PAIN LEVEL 4-6 Last administered on 05/19/17 11:25; Admin Dose 1 TAB; Start 05/11/17 at 15:30 Zolpidem Tartrate (Ambien) 5 mg QHS PRN PO SLEEP Last administered on 21:05; Admin Dose 5 MG; Start 05/11/17 at 15:30 Heparin Sodium (Porcine) (Heparin (5000 Units/0.5 ml)) 5,000 unit Q12 SC Last administered on 05/14/17 20:32; Admin Dose 5,000 UNIT; Start 05/12/17 at 21: 00; Status Future Hold Nitroglycerin 1 tab 1 tab Q5M PRN SL ANGINA; Start 05/14/17 at 02:00 Diltiazem HCl (Cardizem-D5W 125 Mg/125 ml Drip) 125 ml @ 5 mls/hr TITRATE IV ; Start 05/14/17 at 19:30 IV Flush (NS 10 ml) 10 ml PRN PRN IV IV PROTOCOL; Start 05/15/17 at 14:30 Morphine Sulfate (morphine) 1 mg Q2 PRN IV PAIN NOT RELIEVED BY OTHERS Last administered on 05/19/17 21:38; Admin Dose 1 MG; Start 05/15/17 at 15:30 Citric Acid/ Sodium Citrate (Bicitra) 30 ml TID PO Last administered on 20:30; Admin Dose 30 ML; Start 05/17/17 at 09:00 Epoetin [place] (Epogen (Esrd)) 6,000 units TuThSa@17 SC Last administered on 17:41; Admin Dose 6,000 UNITS; Start 05/19/17 at 17:00 Promethazine HCl/ Codeine (Phenergan/ Codeine) 5 ml Q4H PRN PO COUGH; Start at 14:30 Lactulose (Enulose) 20 gm Q6 PRN PO CONSTIPATION Last administered on 09:17; Admin Dose 20 GM; Start 05/20/17 at 04:00 Lidocaine (Xylocaine (Viscous)) 15 ml QID PRN PO st Last administered on 05:56; Admin Dose 15 ML; Start 05/20/17 at 06:00 Phenol (Cepastat Lozenge) 1 lozenge Q1H PRN MT SORE THROAT Last administered on 05/20/17 05:56; Admin Dose 1 LOZENGE; Start 05/20/17 at 06:00 Assessment/Plan Chief Complaint/Hosp Course IMPRESSION AND PLAN: 1. Hypoxemic respiratory failure required mechanical ventilation prior to pericardial drain. Stable on nasal cannula 2. Large pericardial effusion, status post pericardial drainage. Possibly secondary to uremia. Significant clinical improvement following pericardiocentesis 3. Renal failure, progressive to cardiorenal syndrome. 4. Atrial fibrillation with rapid ventricular rate. 5. Diabetic nephropathy per chart. 6. Escherichia coli urinary tract infection. 7. Drop in hemoglobin concerning for possible GI bleed. No evidence of worsening tamponade clinically. PLAN: 1. Incentive spirometry 2. Cardiac recommendations 3. Renal recommendations 4. Physical therapy encourage out of bed. 5. Rate control. 6. Deep venous thrombosis and gastrointestinal prophylaxis. DC planning okay from pulmonary standpoint Problems: LOVE CEVALLOS MD, [facility] May 20, 2017 10:20
[2017-05-20] MEDS: HYDROCODONE/APAP (5/325) TAB PO PRN (10:40)
--- NOTE | 2017-05-20 12:07 | RADRPT ---
Vent Rate: 87 bpm RR Interval: 0 msec [place] Interval: 144 msec QRS Duration: 76 msec QT Interval: 376 msec QTC Interval: 452 msec P-R-T [place]: 38 - 14 - 52 degrees Sinus rhythm with occasional premature ventricular complexes Cannot rule out Anterior infarct , age undetermined Abnormal ECG Electronically Signed By: Maurice San [id number]
--- NOTE | 2017-05-20 12:59 | CONS ---
Date/Time of Note Date/Time of Note DATE: 05/20/17 TIME: 12:57 Assessment/Plan Assessment/Plan Additional Assessment/Plan Dyspnea PAF in NSR Pericardial effusion s/p pericardiocentesis Acute on chronic diastolic heart failure Abnormal electrocardiogram Diabetes mellitus. Renal failure on HD Anemia Urinary tract infection. Hemodynamically stable in NSR Continue Diltiazem Not on anticoagulation due to severe anemia HD as scheduled Monitor on Tele Keep Mag > 2 and Potassium > 4 echo stat to assess for pericardial effusion started on Colchicine Consultation Date/Type/Reason Admit Date/Time May 11, 2017 at 13:02 Initial Consult Date 05/12/17 Type of Consultation: Pulmonary Referring Provider: TAWANA DALY MD Exam/Review of Systems Vital Signs Vitals Vital Signs Date Time Temp Pulse Resp B/P Pulse Ox O2 Delivery O2 Flow Rate FiO2 05/20/17 12:51 79 05/20/17 12:01 98.2 20 117/54 97 05/20/17 08:15 3.0 05/20/17 08:15 Nasal Cannula 05/16/17 13:05 40 Intake and Output 05/19/17 05/19/17 05/20/17 15:00 23:00 07:00 Intake Total 500 ml 750 ml Output Total 3000 ml 300 ml Balance -2500 ml 450 ml Exam Constitutional: alert, oriented Head: atraumatic, normocephalic Neck: non-tender, supple Respiratory: diminished breath sounds Cardiovascular: regular rate and rhythm Gastrointestinal: nl liver, spleen, non-tender, soft Extremities: normal pulses Results Result Diagram: 05/20/17 0736 05/20/17 0738 Results 24 hrs Laboratory Tests Test 05/19/17 13:31 05/20/17 07:36 05/20/17 07:38 Troponin I 0.016 White Blood Count 9.7 Red Blood Count 2.87 L Hemoglobin 8.7 L Hematocrit 28.6 L Mean Corpuscular Volume 99.7 Mean Corpuscular Hemoglobin 30.3 Mean Corpuscular Hemoglobin Concent 30.4 L Red Cell Distribution Width 14.8 H Platelet Count 166 Mean Platelet Volume 10.7 H Neutrophils % 78.1 H Lymphocytes % 7.4 L Monocytes % 7.3 Eosinophils % 3.1 Basophils % 0.4 Nucleated Red Blood Cells % 0.0 Neutrophils # 7.5 Lymphocytes # 0.7 L Monocytes # 0.7 Eosinophils # 0.3 Basophils # 0.0 Nucleated Red Blood Cells # 0.0 Sodium Level 140 Potassium Level 4.2 Chloride Level 97 Carbon Dioxide Level 33 H Anion Gap 14 Blood Urea Nitrogen 33 H Creatinine 1.76 H Glucose Level 109 Calcium Level 8.4 Medications Medications Current Medications Acetaminophen/ Hydrocodone Bitart ([place] (5/325)) 1 tab Q6H PRN PO MODERATE PAIN LEVEL 4-6 Last administered on 05/20/17 10:40; Admin Dose 1 TAB; Start 05/11/17 at 15:30 Zolpidem Tartrate (Ambien) 5 mg QHS PRN PO SLEEP Last administered on 21:05; Admin Dose 5 MG; Start 05/11/17 at 15:30 Heparin Sodium (Porcine) (Heparin (5000 Units/0.5 ml)) 5,000 unit Q12 SC Last administered on 05/14/17 20:32; Admin Dose 5,000 UNIT; Start 05/12/17 at 21: 00; Status Future Hold Nitroglycerin 1 tab 1 tab Q5M PRN SL ANGINA; Start 05/14/17 at 02:00 Diltiazem HCl (Cardizem-D5W 125 Mg/125 ml Drip) 125 ml @ 5 mls/hr TITRATE IV ; Start 05/14/17 at 19:30 IV Flush (NS 10 ml) 10 ml PRN PRN IV IV PROTOCOL; Start 05/15/17 at 14:30 Morphine Sulfate (morphine) 1 mg Q2 PRN IV PAIN NOT RELIEVED BY OTHERS Last administered on 05/19/17 21:38; Admin Dose 1 MG; Start 05/15/17 at 15:30 Citric Acid/ Sodium Citrate (Bicitra) 30 ml TID PO Last administered on 20:30; Admin Dose 30 ML; Start 05/17/17 at 09:00 Epoetin [place] (Epogen (Esrd)) 6,000 units TuThSa@17 SC Last administered on 17:41; Admin Dose 6,000 UNITS; Start 05/19/17 at 17:00 Promethazine HCl/ Codeine (Phenergan/ Codeine) 5 ml Q4H PRN PO COUGH; Start at 14:30 Lactulose (Enulose) 20 gm Q6 PRN PO CONSTIPATION Last administered on 09:17; Admin Dose 20 GM; Start 05/20/17 at 04:00 Lidocaine (Xylocaine (Viscous)) 15 ml QID PRN PO st Last administered on 12:19; Admin Dose 15 ML; Start 05/20/17 at 06:00 Phenol (Cepastat Lozenge) 1 lozenge Q1H PRN MT SORE THROAT Last administered on 05/20/17 12:21; Admin Dose 1 LOZENGE; Start 05/20/17 at 06:00 FERNANDO JOHNS M.D. May 20, 2017 12:59
[2017-05-20] MEDS: COLCHICINE 0.6 MG TAB PO SCH ×2 (14:40→20:31)
--- NOTE | 2017-05-20 17:29 | CONS ---
Date/Time of Note Date/Time of Note DATE: 05/20/17 TIME: 17:26 Assessment/Plan Assessment/Plan Additional Assessment/Plan 1. 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 Possible UTI - will get UA/ Urine c/s- fu 2. acute CHF exacerbation, acute on chronic, Systolic and diastolic 3. Acute Hypoxemic respiratory failure secondary to alveolar hypoventilation with hypercapnia and worsening mentation. 4. Large pericardial effusion s/p pericardiocentesis 850cc drained on 05/15/17 5. Septic shock due to UIT, urine cx grew E.coli and Enterobacter 5. atrial fibrillation with RVR on amiodarone 6. 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 h/o HTN 8. H/o DM II 9. H/o HL 10. Anemia of CKD< with iron deficiency - on IV iron with epogen Plan: started on hemodialysis on 05/14/2017- s/p 4 days in a row HD with Ultrafiltration, 8.5 Liter negative so far, no HD today, will plan for HD today S/P pericardiocentesis - 850cc drained,drain in place renal US c/w medical renal disease IV iron for anemia IV abx for UTI, repeat Urine cx grew wilder albicans, currently she is on IV ceftriaxone Cardiology , pulmonary has been following on patient. Pt was accepted for transfer to [facility] but currently she is not stable for transfer- we will wait for her to be more stable before getting transferred to [facility]. - Plan of care dw Dr Cabrera Villalba/staff Consultation Date/Type/Reason Admit Date/Time May 11, 2017 at 13:02 Initial Consult Date 05/12/17 Type of Consultation: Pulmonary Referring Provider: TAWANA DALY MD Exam/Review of Systems Vital Signs Vitals Vital Signs Date Time Temp Pulse Resp B/P Pulse Ox O2 Delivery O2 Flow Rate FiO2 05/20/17 16:35 98.3 74 20 123/55 96 05/20/17 13:38 Nasal Cannula 3.0 05/16/17 13:05 40 Intake and Output 05/19/17 05/19/17 05/20/17 15:00 23:00 07:00 Intake Total 500 ml 750 ml Output Total 3000 ml 300 ml Balance -2500 ml 450 ml Results Result Diagram: 05/20/17 0736 05/20/17 0738 Results 24 hrs Laboratory Tests Test 05/20/17 07:36 05/20/17 07:38 White Blood Count 9.7 Red Blood Count 2.87 L Hemoglobin 8.7 L Hematocrit 28.6 L Mean Corpuscular Volume 99.7 Mean Corpuscular Hemoglobin 30.3 Mean Corpuscular Hemoglobin Concent 30.4 L Red Cell Distribution Width 14.8 H Platelet Count 166 Mean Platelet Volume 10.7 H Neutrophils % 78.1 H Lymphocytes % 7.4 L Monocytes % 7.3 Eosinophils % 3.1 Basophils % 0.4 Nucleated Red Blood Cells % 0.0 Neutrophils # 7.5 Lymphocytes # 0.7 L Monocytes # 0.7 Eosinophils # 0.3 Basophils # 0.0 Nucleated Red Blood Cells # 0.0 Sodium Level 140 Potassium Level 4.2 Chloride Level 97 Carbon Dioxide Level 33 H Anion Gap 14 Blood Urea Nitrogen 33 H Creatinine 1.76 H Glucose Level 109 Calcium Level 8.4 Medications Medications Current Medications Acetaminophen/ Hydrocodone Bitart ([place] (5/325)) 1 tab Q6H PRN PO MODERATE PAIN LEVEL 4-6 Last administered on 05/20/17 10:40; Admin Dose 1 TAB; Start 05/11/17 at 15:30 Zolpidem Tartrate (Ambien) 5 mg QHS PRN PO SLEEP Last administered on 21:05; Admin Dose 5 MG; Start 05/11/17 at 15:30 Heparin Sodium (Porcine) (Heparin (5000 Units/0.5 ml)) 5,000 unit Q12 SC Last administered on 05/14/17 20:32; Admin Dose 5,000 UNIT; Start 05/12/17 at 21: 00; Status Future Hold Nitroglycerin 1 tab 1 tab Q5M PRN SL ANGINA; Start 05/14/17 at 02:00 Diltiazem HCl (Cardizem-D5W 125 Mg/125 ml Drip) 125 ml @ 5 mls/hr TITRATE IV ; Start 05/14/17 at 19:30 IV Flush (NS 10 ml) 10 ml PRN PRN IV IV PROTOCOL; Start 05/15/17 at 14:30 Morphine Sulfate (morphine) 1 mg Q2 PRN IV PAIN NOT RELIEVED BY OTHERS Last administered on 05/19/17 21:38; Admin Dose 1 MG; Start 05/15/17 at 15:30 Citric Acid/ Sodium Citrate (Bicitra) 30 ml TID PO Last administered on 20:30; Admin Dose 30 ML; Start 05/17/17 at 09:00 Epoetin [place] (Epogen (Esrd)) 6,000 units TuThSa@17 SC Last administered on 17:41; Admin Dose 6,000 UNITS; Start 05/19/17 at 17:00 Promethazine HCl/ Codeine (Phenergan/ Codeine) 5 ml Q4H PRN PO COUGH; Start at 14:30 Lactulose (Enulose) 20 gm Q6 PRN PO CONSTIPATION Last administered on 09:17; Admin Dose 20 GM; Start 05/20/17 at 04:00 Lidocaine (Xylocaine (Viscous)) 15 ml QID PRN PO st Last administered on 12:19; Admin Dose 15 ML; Start 05/20/17 at 06:00 Phenol (Cepastat Lozenge) 1 lozenge Q1H PRN MT SORE THROAT Last administered on 05/20/17 14:08; Admin Dose 1 LOZENGE; Start 05/20/17 at 06:00 Colchicine 0.3 mg 0.3 mg BID PO Last administered on 05/20/17 14:40; Admin Dose 0.3 MG; Start 05/20/17 at 14:00 Sodium Chloride (1/2 NS) 1,000 ml @ 40 mls/hr Q24H IV ; Start 05/20/17 at 17: 30; Status ALENA BOWMAN May 20, 2017 17:29
[2017-05-20] MEDS ORDERED: SOD CHLORIDE 0.45% 1,000 ML IV SCH (17:30)
--- NOTE | 2017-05-20 18:36 | PN ---
Date/Time of Note Date/Time of Note DATE: 05/20/17 TIME: 18:34 Assessment/Plan VTE Prophylaxis VTE Prophylaxis Intervention: heparin Assessment/Plan Chief Complaint/Hosp Course 1. Acute kidney injury secondary to sepsis from UTI on chronic CKD with fluid overload, uremia and hyperkalemia Continue dialysis per nephrology Monitor renal function 2. Shock secondary to sepsis from UTI as well as pericardial effusion-resolved Now off pressors Patient is status post successful pericardiocentesis Urine culture shows E. coli Status post 7 days of Rocephin, monitor off antibiotics 3. Acute encephalopathy secondary to hypercapnic respiratory failure-resolved 4. Pericardial effusion status post successful pericardiocentesis Follow-up on repeat echo done today Patient started on colchicine by cardiology 5. Debility secondary to obesity Patient leads a mostly sedentary lifestyle at baseline per daughter PT evaluation Patient will need usp placement 6. Diabetes Continue insulin Prophylaxis: Heparin Disposition: Possible transfer [facility] if bed available versus patient staying at [facility] with discharge to rehab facility in the next several days Problems: Subjective 24 Hr Interval Summary Respiratory: shortness of breath Exam/Review of Systems Vital Signs Vitals Vital Signs Date Time Temp Pulse Resp B/P Pulse Ox O2 Delivery O2 Flow Rate FiO2 05/20/17 16:35 98.3 74 20 123/55 96 05/20/17 13:38 Nasal Cannula 3.0 05/16/17 13:05 40 Intake and Output 05/19/17 05/19/17 05/20/17 15:00 23:00 07:00 Intake Total 500 ml 750 ml Output Total 3000 ml 300 ml Balance -2500 ml 450 ml Exam Constitutional: alert, oriented Respiratory: clear to auscultation Cardiovascular: regular rate and rhythm Gastrointestinal: soft, No distended Musculoskeletal: nl extremities to inspection Results Result Diagram: 05/20/17 0736 05/20/17 0738 Results 24 hrs Laboratory Tests Test 05/20/17 07:36 05/20/17 07:38 White Blood Count 9.7 Red Blood Count 2.87 L Hemoglobin 8.7 L Hematocrit 28.6 L Mean Corpuscular Volume 99.7 Mean Corpuscular Hemoglobin 30.3 Mean Corpuscular Hemoglobin Concent 30.4 L Red Cell Distribution Width 14.8 H Platelet Count 166 Mean Platelet Volume 10.7 H Neutrophils % 78.1 H Lymphocytes % 7.4 L Monocytes % 7.3 Eosinophils % 3.1 Basophils % 0.4 Nucleated Red Blood Cells % 0.0 Neutrophils # 7.5 Lymphocytes # 0.7 L Monocytes # 0.7 Eosinophils # 0.3 Basophils # 0.0 Nucleated Red Blood Cells # 0.0 Sodium Level 140 Potassium Level 4.2 Chloride Level 97 Carbon Dioxide Level 33 H Anion Gap 14 Blood Urea Nitrogen 33 H Creatinine 1.76 H Glucose Level 109 Calcium Level 8.4 Medications Medications Current Medications Acetaminophen/ Hydrocodone Bitart ([place] (5/325)) 1 tab Q6H PRN PO MODERATE PAIN LEVEL 4-6 Last administered on 05/20/17 10:40; Admin Dose 1 TAB; Start 05/11/17 at 15:30 Zolpidem Tartrate (Ambien) 5 mg QHS PRN PO SLEEP Last administered on 21:05; Admin Dose 5 MG; Start 05/11/17 at 15:30 Heparin Sodium (Porcine) (Heparin (5000 Units/0.5 ml)) 5,000 unit Q12 SC Last administered on 05/14/17 20:32; Admin Dose 5,000 UNIT; Start 05/12/17 at 21: 00; Status Future Hold Nitroglycerin 1 tab 1 tab Q5M PRN SL ANGINA; Start 05/14/17 at 02:00 Diltiazem HCl (Cardizem-D5W 125 Mg/125 ml Drip) 125 ml @ 5 mls/hr TITRATE IV ; Start 05/14/17 at 19:30 IV Flush (NS 10 ml) 10 ml PRN PRN IV IV PROTOCOL; Start 05/15/17 at 14:30 Morphine Sulfate (morphine) 1 mg Q2 PRN IV PAIN NOT RELIEVED BY OTHERS Last administered on 05/19/17 21:38; Admin Dose 1 MG; Start 05/15/17 at 15:30 Citric Acid/ Sodium Citrate (Bicitra) 30 ml TID PO Last administered on 20:30; Admin Dose 30 ML; Start 05/17/17 at 09:00 Epoetin [place] (Epogen (Esrd)) 6,000 units TuThSa@17 SC Last administered on 17:41; Admin Dose 6,000 UNITS; Start 05/19/17 at 17:00 Promethazine HCl/ Codeine (Phenergan/ Codeine) 5 ml Q4H PRN PO COUGH; Start at 14:30 Lactulose (Enulose) 20 gm Q6 PRN PO CONSTIPATION Last administered on 09:17; Admin Dose 20 GM; Start 05/20/17 at 04:00 Lidocaine (Xylocaine (Viscous)) 15 ml QID PRN PO st Last administered on 12:19; Admin Dose 15 ML; Start 05/20/17 at 06:00 Phenol (Cepastat Lozenge) 1 lozenge Q1H PRN MT SORE THROAT Last administered on 05/20/17 14:08; Admin Dose 1 LOZENGE; Start 05/20/17 at 06:00 Colchicine (Colchicine) 0.3 mg BID PO Last administered on 05/20/17 14:40; Admin Dose 0.3 MG; Start 05/20/17 at 14:00 SINDHU LOPEZ May 20, 2017 18:36
--- NOTE | 2017-05-20 19:34 | RADRPT ---
Echocardiogram Report Patient Name: MIKA TAMAYO Gender: Female Date: 1935 Study Date: 20-May-2017 Filer Metal Patterns: LULY Location: I Ref. Physician: KENY JOHNS Quality: Technically Difficult Study Procedures: Transthoracic echocardiogram examination. Indications: Shortness of breath. Findings Right Ventricle: Normal right ventricular, does not appear to collapse. Right Atrium: The right atrium does not appear to collapse. Pericardium: Small pericardial effusion. No echocardiographic evidence to suggest pericardial tamponade. IVC: Normal inferior vena cava appearance and respiratory collapse, when asked to sniff IVC collapsed normally. Conclusions Small pericardial effusion. No echocardiographic evidence to suggest pericardial tamponade. Electronically Signed By: Keny Johns 20-May-2017 19:33:49 -0700 Patient Name: MIKA TAMAYO Study Date: 20-May-2017 [id number]
[2017-05-20] MEDS ORDERED: NA PHOSPHATE/BIPHOS 133 ML ENEMA PR PRN (20:00)
[2017-05-21] VITALS (12 sets, daily range): BP systolic 105–132; BP diastolic 49–70; PULSE 78–92; RESP 16–20
[2017-05-21] MEDS: ALBUTEROL/IPRATROPIUM (NEB) 3 ML AMP HHN SCH ×6 (01:32→20:07)
[2017-05-21 08:01] LABS: BASOPHIL # 0.1 10^3/ul (0.0-0.1); BASOPHILS % 0.6 % (0.0-2.0); EOSINOPHILS # 0.3 10^3/ul (0.0-0.5); EOSINOPHILS % 2.1 % (0.0-7.0); HEMATOCRIT 30.7 % (37.0-47.0); HEMOGLOBIN 9.4 g/dl (12.0-16.0); LYMPHOCYTES # 0.6 10^3/ul (0.8-2.9); LYMPHOCYTES % 5.3 % (15.0-51.0); MEAN CORPUSCULAR HEMOGLOBIN 30.3 pg (29.0-33.0); MEAN CORPUSCULAR HGB CONC 30.6 g/dl (32.0-37.0); MEAN PLATELET VOLUME 11.6 fl (7.4-10.4); MONOCYTE # 0.7 10^3/ul (0.3-0.9); MONOCYTES % 6.1 % (0.0-11.0); NEUTROPHILS % 83.5 % (39.0-77.0); PLATELET COUNT 195 10^3/UL (140-415); RED CELL DISTRIBUTION WIDTH 14.5 % (11.5-14.5)
[2017-05-21 08:31] LABS: CALCIUM 8.8 mg/dl (8.4-10.2); CREATININE 1.5 mg/dl (0.44-1.00); POTASSIUM 4.1 mmol/L (3.5-5.1)
[2017-05-21] MEDS: CITRIC ACID/SODIUM CITRATE 15 ML CUP PO SCH ×3 (10:46→21:00)
[2017-05-21] MEDS: COLCHICINE 0.6 MG TAB PO SCH ×2 (11:03→21:01)
--- NOTE | 2017-05-21 11:15 | RADRPT ---
Echocardiogram Report Patient Name: MIKA TAMAYO Gender: Female Date: 1935 Study Date: 15-May-2017 Medical Administrative Technician: Yessi Santana RDCS Location: [facility] Ref. Physician: JOSLNY HOWARD Quality: Adequate Procedures: Transthoracic echocardiogram examination. Indications: Pericardial Effusion. Findings Left Ventricle: Normal left ventricular cavity size, wall thickness and systolic function. The left ventricular ejection fraction is visually estimated at 55 %. Pericardium: Large pericardial effusion. Conclusions 1.Large pericardial effusion. 2.Recommend Pericardiocentesis. Electronically Signed By: Keny Jones 21-May-2017 11:15:09 -0700 Patient Name: MIKA TAMAYO Study Date: 15-May-2017 [id number]
--- NOTE | 2017-05-21 12:50 | CONS ---
Date/Time of Note Date/Time of Note DATE: 05/21/17 TIME: 12:48 Assessment/Plan Assessment/Plan Additional Assessment/Plan 2D echocardiogram from yesterday is not showing any recurrence of significant pericardial effusion. Assessment recommendations; 1. Patient admitted with respiratory failure due to pericardial tamponade, status post pericardial window placement. Patient has improved markedly improved. 2. Chronic atrial fibrillation. 3. Status post treatment for E. coli UTI. 4. Mild anemia and thrombocytopenia. 5. Mild renal insufficiency. Continue current treatment. Consider discharge. Consultation Date/Type/Reason Admit Date/Time May 11, 2017 at 13:02 Initial Consult Date 05/12/17 Type of Consultation: Pulmonary Referring Provider: TAWANA DALY MD 24 HR Interval Summary Free Text/Dictation Patient's condition is stable. Currently sitting in chair by bedside. Complains of very minimal shortness of breath. Denies any fever or chills. Any chest pain. General exam; elderly woman, awake alert, currently in no distress. Exam/Review of Systems Vital Signs Vitals Vital Signs Date Time Temp Pulse Resp B/P Pulse Ox O2 Delivery O2 Flow Rate FiO2 05/21/17 12:04 83 05/21/17 11:56 98.8 17 114/59 95 05/21/17 06:06 Nasal Cannula 3.0 Intake and Output 05/20/17 05/20/17 05/21/17 15:00 23:00 07:00 Intake Total 200 ml Output Total 300 ml Balance -100 ml Exam HEENT exam; supple neck, no JVD. No lymphadenopathy. Midline trachea. No thyromegaly. Pharynx is clear. Chest exam; diminished but clear breath sounds. S1-S2 audible, irregular rhythm. No murmurs. Abdomen exam; soft, protuberant. Nontender. No organomegaly. Bowel sounds audible. Extremities; no peripheral edema. [employer] exam; no focal deficit. Results Result Diagram: 05/21/17 0743 05/21/17 0743 Results 24 hrs Laboratory Tests Test 05/21/17 07:43 05/21/17 08:49 White Blood Count 12.0 #H Red Blood Count 3.10 L Hemoglobin 9.4 L Hematocrit 30.7 L Mean Corpuscular Volume 99.0 Mean Corpuscular Hemoglobin 30.3 Mean Corpuscular Hemoglobin Concent 30.6 L Red Cell Distribution Width 14.5 Platelet Count 195 Mean Platelet Volume 11.6 H Neutrophils % 83.5 H Lymphocytes % 5.3 L Monocytes % 6.1 Eosinophils % 2.1 Basophils % 0.6 Nucleated Red Blood Cells % 0.0 Neutrophils # 10.0 H Lymphocytes # 0.6 L Monocytes # 0.7 Eosinophils # 0.3 Basophils # 0.1 Nucleated Red Blood Cells # 0.0 Sodium Level 140 Potassium Level 4.1 Chloride Level 100 Carbon Dioxide Level 32 H Anion Gap 12 Blood Urea Nitrogen 40 H Creatinine 1.50 H Glucose Level 124 Calcium Level 8.8 Lab Scanned Report REFERENCE LAB Medications Medications Current Medications Acetaminophen/ Hydrocodone Bitart ([place] (5/325)) 1 tab Q6H PRN PO MODERATE PAIN LEVEL 4-6 Last administered on 05/20/17 10:40; Admin Dose 1 TAB; Start 05/11/17 at 15:30 Zolpidem Tartrate (Ambien) 5 mg QHS PRN PO SLEEP Last administered on 21:05; Admin Dose 5 MG; Start 05/11/17 at 15:30 Heparin Sodium (Porcine) (Heparin (5000 Units/0.5 ml)) 5,000 unit Q12 SC Last administered on 05/14/17 20:32; Admin Dose 5,000 UNIT; Start 05/12/17 at 21: 00; Status Future Hold Nitroglycerin 1 tab 1 tab Q5M PRN SL ANGINA; Start 05/14/17 at 02:00 Diltiazem HCl (Cardizem-D5W 125 Mg/125 ml Drip) 125 ml @ 5 mls/hr TITRATE IV ; Start 05/14/17 at 19:30 IV Flush (NS 10 ml) 10 ml PRN PRN IV IV PROTOCOL; Start 05/15/17 at 14:30 Morphine Sulfate (morphine) 1 mg Q2 PRN IV PAIN NOT RELIEVED BY OTHERS Last administered on 05/19/17 21:38; Admin Dose 1 MG; Start 05/15/17 at 15:30 Citric Acid/ Sodium Citrate (Bicitra) 30 ml TID PO Last administered on 20:32; Admin Dose 30 ML; Start 05/17/17 at 09:00 Epoetin [place] (Epogen (Esrd)) 6,000 units TuThSa@17 SC Last administered on 17:41; Admin Dose 6,000 UNITS; Start 05/19/17 at 17:00 Promethazine HCl/ Codeine (Phenergan/ Codeine) 5 ml Q4H PRN PO COUGH Last administered on 05/20/17 20:31; Admin Dose 5 ML; Start 05/19/17 at 14:30 Lactulose (Enulose) 20 gm Q6 PRN PO CONSTIPATION Last administered on 09:17; Admin Dose 20 GM; Start 05/20/17 at 04:00 Lidocaine (Xylocaine (Viscous)) 15 ml QID PRN PO st Last administered on 21:41; Admin Dose 15 ML; Start 05/20/17 at 06:00 Phenol (Cepastat Lozenge) 1 lozenge Q1H PRN MT SORE THROAT Last administered on 05/20/17 20:32; Admin Dose 1 LOZENGE; Start 05/20/17 at 06:00 Colchicine (Colchicine) 0.3 mg BID PO Last administered on 05/21/17 11:03; Admin Dose 0.3 MG; Start 05/20/17 at 14:00 Sodium Biphosphate/ Sodium Phosphate (Fleet Enema) 133 ml DAILY PRN [place] CONSTIPATION Last administered on 05/20/17 21:42; Admin Dose 133 ML; Start at 20:00 LUIGI EDUARDO May 21, 2017 12:50
[2017-05-21] MEDS ORDERED: ARTIFICIAL TEARS 15 ML OPH BOTH EYES PRN (13:30)
--- NOTE | 2017-05-21 13:36 | PN ---
Date/Time of Note Date/Time of Note DATE: 05/21/17 TIME: 13:34 Assessment/Plan VTE Prophylaxis VTE Prophylaxis Intervention: other Lines/Catheters IV Catheter Type (from Nrsg): PICC Line Central line still needed: Yes Assessment/Plan Chief Complaint/Hosp Course 82 yo female with h/o chronic diastolic CHF, CKD II, MDS, DMII, obesity with acute diastolic CHF exacerbation, BIRGIT and pericardial effusion with pre-[facility] report concerning for tamponade Acute on chronic diastolic CHF exacerbation w pericardial effusion: - Likely from total body overload 2/2 cardiorenal syndrome vs pericarditis: conitnue colchicnie, continue HD per Dr Villalba CKD III now BIRGIT: - Monitor creaitnine/BUn off of HD. Further HD per Dr Villalba MDS: - EPO per schedule DMII: - AISS Telemetry monitoring Problems: Subjective 24 Hr Interval Summary Free Text/Dictation Making good amount of urine Ornery, wants to be discharged to [facility] vs [facility] transfer Exam/Review of Systems Vital Signs Vitals Vital Signs Date Time Temp Pulse Resp B/P Pulse Ox O2 Delivery O2 Flow Rate FiO2 05/21/17 12:04 83 05/21/17 11:56 98.8 17 114/59 95 05/21/17 06:06 Nasal Cannula 3.0 Intake and Output 05/20/17 05/20/17 05/21/17 15:00 23:00 07:00 Intake Total 200 ml Output Total 300 ml Balance -100 ml Exam Breathjign comfortably on room air Results Result Diagram: 05/21/17 0743 05/21/17 0743 Results 24 hrs Laboratory Tests Test 05/21/17 07:43 05/21/17 08:49 White Blood Count 12.0 #H Red Blood Count 3.10 L Hemoglobin 9.4 L Hematocrit 30.7 L Mean Corpuscular Volume 99.0 Mean Corpuscular Hemoglobin 30.3 Mean Corpuscular Hemoglobin Concent 30.6 L Red Cell Distribution Width 14.5 Platelet Count 195 Mean Platelet Volume 11.6 H Neutrophils % 83.5 H Lymphocytes % 5.3 L Monocytes % 6.1 Eosinophils % 2.1 Basophils % 0.6 Nucleated Red Blood Cells % 0.0 Neutrophils # 10.0 H Lymphocytes # 0.6 L Monocytes # 0.7 Eosinophils # 0.3 Basophils # 0.1 Nucleated Red Blood Cells # 0.0 Sodium Level 140 Potassium Level 4.1 Chloride Level 100 Carbon Dioxide Level 32 H Anion Gap 12 Blood Urea Nitrogen 40 H Creatinine 1.50 H Glucose Level 124 Calcium Level 8.8 Lab Scanned Report REFERENCE LAB Medications Medications Current Medications Acetaminophen/ Hydrocodone Bitart ([place] (5/325)) 1 tab Q6H PRN PO MODERATE PAIN LEVEL 4-6 Last administered on 05/20/17 10:40; Admin Dose 1 TAB; Start 05/11/17 at 15:30 Zolpidem Tartrate (Ambien) 5 mg QHS PRN PO SLEEP Last administered on 21:05; Admin Dose 5 MG; Start 05/11/17 at 15:30 Heparin Sodium (Porcine) (Heparin (5000 Units/0.5 ml)) 5,000 unit Q12 SC Last administered on 05/14/17 20:32; Admin Dose 5,000 UNIT; Start 05/12/17 at 21: 00; Status Future Hold Nitroglycerin 1 tab 1 tab Q5M PRN SL ANGINA; Start 05/14/17 at 02:00 Diltiazem HCl (Cardizem-D5W 125 Mg/125 ml Drip) 125 ml @ 5 mls/hr TITRATE IV ; Start 05/14/17 at 19:30 IV Flush (NS 10 ml) 10 ml PRN PRN IV IV PROTOCOL; Start 05/15/17 at 14:30 Morphine Sulfate (morphine) 1 mg Q2 PRN IV PAIN NOT RELIEVED BY OTHERS Last administered on 05/19/17 21:38; Admin Dose 1 MG; Start 05/15/17 at 15:30 Citric Acid/ Sodium Citrate (Bicitra) 30 ml TID PO Last administered on 20:32; Admin Dose 30 ML; Start 05/17/17 at 09:00 Epoetin [place] (Epogen (Esrd)) 6,000 units TuThSa@17 SC Last administered on 17:41; Admin Dose 6,000 UNITS; Start 05/19/17 at 17:00 Promethazine HCl/ Codeine (Phenergan/ Codeine) 5 ml Q4H PRN PO COUGH Last administered on 05/20/17 20:31; Admin Dose 5 ML; Start 05/19/17 at 14:30 Lactulose (Enulose) 20 gm Q6 PRN PO CONSTIPATION Last administered on 09:17; Admin Dose 20 GM; Start 05/20/17 at 04:00 Lidocaine (Xylocaine (Viscous)) 15 ml QID PRN PO st Last administered on 21:41; Admin Dose 15 ML; Start 05/20/17 at 06:00 Phenol (Cepastat Lozenge) 1 lozenge Q1H PRN MT SORE THROAT Last administered on 05/20/17 20:32; Admin Dose 1 LOZENGE; Start 05/20/17 at 06:00 Colchicine (Colchicine) 0.3 mg BID PO Last administered on 05/21/17 11:03; Admin Dose 0.3 MG; Start 05/20/17 at 14:00 Sodium Biphosphate/ Sodium Phosphate (Fleet Enema) 133 ml DAILY PRN [place] CONSTIPATION Last administered on 05/20/17 21:42; Admin Dose 133 ML; Start at 20:00 Eye Lubricant (Artificial Tears Oph) 2 drop Q6H PRN BOTH EYES DRY EYES; Start 05/21/17 at 13:30 TAWANA DALY MD May 21, 2017 13:36
--- NOTE | 2017-05-21 13:40 | CONS ---
Date/Time of Note Date/Time of Note DATE: 05/21/17 TIME: 13:37 Assessment/Plan Assessment/Plan Chief Complaint/Hosp Course IMPRESSION: 1. Pericardial effusion by 2D echo to assess significance-moderate by echo with some possible early echo tamponade features but no current clinical tamponade at this time. ? etiology concerning for uremic as BUN increasing 80 to greater than 100 vs viral/autoimmune. Patient had been refusing HD initiation and pericardiocentesis, stating that she wanted to be transferred to where her regular doctors are located. Patient had been made aware of the risks of refusing theses therapies, from myself, the treating bearing maker Dr. Cabrera Villalba, and primary, Dr. Wynn including possible hemodynamic demise and /resp failure but still did not want the above therapies. Patient last two days with worsening hypotension and sob requiring transfer to ICU and inititation of pressors and thus consented to HD and to pericardiocentesis 05/15 with removal of approx 800cc serosanguinous fluid and now improved BP/ hemodynamics transferred to tele 2. Shortness of breath, likely a combination of possible pneumonia as well as volume overload, congestive heart failure and pericardial effusion. 3. Hypotension-resolved s/p pericardiocentesis 4. Abnormal electrocardiogram 5. Generalized body aches, question viral syndrome. 6. Diabetes mellitus. 7. Renal failure, acute on chronic. 8. Anemia-worsening 9. Leukocytosis. 10. Urinary tract infection. 11. UTI 12. PAF- s/p amio IV with return to SR REcc: -Tele -Close monitoring of BP/HR -Continue abx's and f/u cx data -Continue HD as necessary/renal following -DVT prophylaxis -Follow rhythm closely. Not on systemic anticoag due to anemia -start asa -STarted on colchicine over weekend s/p repeat echo revealing ongoing small effusion without increase since pericardiocentesis. Ok to continue for now but likley unneccesarry Problems: Consultation Date/Type/Reason Admit Date/Time May 11, 2017 at 13:02 Initial Consult Date 05/12/17 Type of Consultation: cardiology Reason for Consultation pericardial effusion Referring Provider: TAWANA WYNN MD Exam/Review of Systems Vital Signs Vitals Vital Signs Date Time Temp Pulse Resp B/P Pulse Ox O2 Delivery O2 Flow Rate FiO2 05/21/17 12:04 83 05/21/17 11:56 98.8 17 114/59 95 05/21/17 06:06 Nasal Cannula 3.0 Intake and Output 05/20/17 05/20/17 05/21/17 15:00 23:00 07:00 Intake Total 200 ml Output Total 300 ml Balance -100 ml Exam Review of Systems: CONSTITUTIONAL: No fevers, chills. PULMONARY: No sob CARDIOVASCULAR: No chest pain/palpitations GASTROINTESTINAL: No nausea/vomiting. GENITOURINARY: No hematuria/dysuria. MUSCULOSKELETAL: No myagias/arthalgias. PSYCHIATRIC: The patient denies depression. NEUROLOGIC: No weakness Constitutional: alert Psych: no complaints Head: normocephalic ENMT: mucosa pink and moist Neck: jvd (9 cm water), supple Respiratory: diminished breath sounds Cardiovascular: regular rate and rhythm Gastrointestinal: non-tender, soft Musculoskeletal: muscle weakness (mild generalized) Extremities: pitting pedal edema (bilateral) Neurological: other (No focal deficits) Results Result Diagram: 05/21/17 0743 05/21/17 0743 Results 24 hrs Laboratory Tests Test 05/21/17 07:43 05/21/17 08:49 White Blood Count 12.0 #H Red Blood Count 3.10 L Hemoglobin 9.4 L Hematocrit 30.7 L Mean Corpuscular Volume 99.0 Mean Corpuscular Hemoglobin 30.3 Mean Corpuscular Hemoglobin Concent 30.6 L Red Cell Distribution Width 14.5 Platelet Count 195 Mean Platelet Volume 11.6 H Neutrophils % 83.5 H Lymphocytes % 5.3 L Monocytes % 6.1 Eosinophils % 2.1 Basophils % 0.6 Nucleated Red Blood Cells % 0.0 Neutrophils # 10.0 H Lymphocytes # 0.6 L Monocytes # 0.7 Eosinophils # 0.3 Basophils # 0.1 Nucleated Red Blood Cells # 0.0 Sodium Level 140 Potassium Level 4.1 Chloride Level 100 Carbon Dioxide Level 32 H Anion Gap 12 Blood Urea Nitrogen 40 H Creatinine 1.50 H Glucose Level 124 Calcium Level 8.8 Lab Scanned Report REFERENCE LAB Medications Medications Current Medications Acetaminophen/ Hydrocodone Bitart ([place] (5/325)) 1 tab Q6H PRN PO MODERATE PAIN LEVEL 4-6 Last administered on 05/20/17t 10:40; Admin Dose 1 TAB; Start 05/11/17 at 15:30 Zolpidem Tartrate (Ambien) 5 mg QHS PRN PO SLEEP Last administered on 21:05; Admin Dose 5 MG; Start 05/11/17 at 15:30 Heparin Sodium (Porcine) (Heparin (5000 Units/0.5 ml)) 5,000 unit Q12 SC Last administered on 05/14/17 20:32; Admin Dose 5,000 UNIT; Start 05/12/17 at 21: 00; Status Future Hold Nitroglycerin 1 tab 1 tab Q5M PRN SL ANGINA; Start 05/14/17 at 02:00 Diltiazem HCl (Cardizem-D5W 125 Mg/125 ml Drip) 125 ml @ 5 mls/hr TITRATE IV ; Start 05/14/17 at 19:30 IV Flush (NS 10 ml) 10 ml PRN PRN IV IV PROTOCOL; Start 05/15/17 at 14:30 Morphine Sulfate (morphine) 1 mg Q2 PRN IV PAIN NOT RELIEVED BY OTHERS Last administered on 05/19/17 21:38; Admin Dose 1 MG; Start 05/15/17 at 15:30 Citric Acid/ Sodium Citrate (Bicitra) 30 ml TID PO Last administered on 20:32; Admin Dose 30 ML; Start 05/17/17 at 09:00 Epoetin [place] (Epogen (Esrd)) 6,000 units TuThSa@17 SC Last administered on 17:41; Admin Dose 6,000 UNITS; Start 05/19/17 at 17:00 Promethazine HCl/ Codeine (Phenergan/ Codeine) 5 ml Q4H PRN PO COUGH Last administered on 05/20/17 20:31; Admin Dose 5 ML; Start 05/19/17 at 14:30 Lactulose (Enulose) 20 gm Q6 PRN PO CONSTIPATION Last administered on 09:17; Admin Dose 20 GM; Start 05/20/17 at 04:00 Lidocaine (Xylocaine (Viscous)) 15 ml QID PRN PO st Last administered on 21:41; Admin Dose 15 ML; Start 05/20/17 at 06:00 Phenol (Cepastat Lozenge) 1 lozenge Q1H PRN [place] SORE THROAT Last administered on 05/20/17 20:32; Admin Dose 1 LOZENGE; Start 05/20/17 at 06:00 Colchicine (Colchicine) 0.3 mg BID PO Last administered on 05/21/17 11:03; Admin Dose 0.3 MG; Start 05/20/17 at 14:00 Sodium Biphosphate/ Sodium Phosphate (Fleet Enema) 133 ml DAILY PRN [place] CONSTIPATION Last administered on 05/20/17 21:42; Admin Dose 133 ML; Start at 20:00 Eye Lubricant (Artificial Tears Oph) 2 drop Q6H PRN BOTH EYES DRY EYES; Start 05/21/17 at 13:30 JOSLYN HOWARD May 21, 2017 13:40
[2017-05-21] MEDS: LIDOCAINE 2% VISC 15 ML CUP PO PRN ×2 (14:57→19:37)
--- NOTE | 2017-05-21 17:33 | CONS ---
Date/Time of Note Date/Time of Note DATE: 05/21/17 TIME: 17:30 Assessment/Plan Assessment/Plan Additional Assessment/Plan 1. 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 acute CHF exacerbation, acute on chronic, Systolic and diastolic 3. Acute Hypoxemic respiratory failure S/p ICU and ventilator care 4. Large pericardial effusino s/p pericardiocentesis 850cc drained on 05/15/17 5. Septic shock due to UIT, urine cx grew E.coli and Enterobacter 5. atrial firbillatino with RVR on amiodarone 6. 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 h/o HTN 8. H/o DM II 9. H/o HL 10.. Anemia of CKD< with iron deficiency - on IV iron with epogen Plan: Started on HD last week and pt has 5 sessions of HD so far, today her cr stable , K stable, she is making good urine, no plan for HD today, will reassess in AM if pt needs HD or not S/P pericardiocentesis by cardiology renal US c/w medical renal disease on Epogen for anemia of chronic renal disease - Ok to transfer to [facility] if pt has bed available Consultation Date/Type/Reason Admit Date/Time May 11, 2017 at 13:02 Initial Consult Date 05/12/17 Type of Consultation: NEPHROLOGY Referring Provider: TAWANA DALY MD Exam/Review of Systems Vital Signs Vitals Vital Signs Date Time Temp Pulse Resp B/P Pulse Ox O2 Delivery O2 Flow Rate FiO2 05/21/17 16:12 99.9 80 17 132/58 96 05/21/17 06:06 Nasal Cannula 3.0 Intake and Output 05/20/17 05/20/17 05/21/17 15:00 23:00 07:00 Intake Total 200 ml Output Total 300 ml Balance -100 ml Exam Constitutional: alert Neck: jvd, other (Right IJ Pee catheter ) Respiratory: congested cough, crackles/rales, diminished breath sounds Cardiovascular: irregular rhythm, nl pulses, regular rate and rhythm Gastrointestinal: non-tender, soft Musculoskeletal: swelling (2-3+ pitting edema ) Extremities: normal pulses Neurological: SANDBLAST OPERATOR II-XII intact Skin: nl turgor Results Result Diagram: 05/21/17 0743 05/21/17 0743 Results 24 hrs Laboratory Tests Test 05/21/17 07:43 05/21/17 08:49 White Blood Count 12.0 #H Red Blood Count 3.10 L Hemoglobin 9.4 L Hematocrit 30.7 L Mean Corpuscular Volume 99.0 Mean Corpuscular Hemoglobin 30.3 Mean Corpuscular Hemoglobin Concent 30.6 L Red Cell Distribution Width 14.5 Platelet Count 195 Mean Platelet Volume 11.6 H Neutrophils % 83.5 H Lymphocytes % 5.3 L Monocytes % 6.1 Eosinophils % 2.1 Basophils % 0.6 Nucleated Red Blood Cells % 0.0 Neutrophils # 10.0 H Lymphocytes # 0.6 L Monocytes # 0.7 Eosinophils # 0.3 Basophils # 0.1 Nucleated Red Blood Cells # 0.0 Sodium Level 140 Potassium Level 4.1 Chloride Level 100 Carbon Dioxide Level 32 H Anion Gap 12 Blood Urea Nitrogen 40 H Creatinine 1.50 H Glucose Level 124 Calcium Level 8.8 Lab Scanned Report REFERENCE LAB Medications Medications Current Medications Acetaminophen/ Hydrocodone Bitart ([place] (5/325)) 1 tab Q6H PRN PO MODERATE PAIN LEVEL 4-6 Last administered on 05/20/17 10:40; Admin Dose 1 TAB; Start 05/11/17 at 15:30 Zolpidem Tartrate (Ambien) 5 mg QHS PRN PO SLEEP Last administered on 21:05; Admin Dose 5 MG; Start 05/11/17 at 15:30 Heparin Sodium (Porcine) (Heparin (5000 Units/0.5 ml)) 5,000 unit Q12 SC Last administered on 05/14/17 20:32; Admin Dose 5,000 UNIT; Start 05/12/17 at 21: 00; Status Future Hold Nitroglycerin 1 tab 1 tab Q5M PRN SL ANGINA; Start 05/14/17 at 02:00 Diltiazem HCl (Cardizem-D5W 125 Mg/125 ml Drip) 125 ml @ 5 mls/hr TITRATE IV ; Start 05/14/17 at 19:30 IV Flush (NS 10 ml) 10 ml PRN PRN IV IV PROTOCOL; Start 05/15/17 at 14:30 Morphine Sulfate (morphine) 1 mg Q2 PRN IV PAIN NOT RELIEVED BY OTHERS Last administered on 05/19/17 21:38; Admin Dose 1 MG; Start 05/15/17 at 15:30 Citric Acid/ Sodium Citrate (Bicitra) 30 ml TID PO Last administered on 20:32; Admin Dose 30 ML; Start 05/17/17 at 09:00 Epoetin [place] (Epogen (Esrd)) 6,000 units TuThSa@17 SC Last administered on 17:41; Admin Dose 6,000 UNITS; Start 05/19/17 at 17:00 Promethazine HCl/ Codeine (Phenergan/ Codeine) 5 ml Q4H PRN PO COUGH Last administered on 05/20/17 20:31; Admin Dose 5 ML; Start 05/19/17 at 14:30 Lactulose (Enulose) 20 gm Q6 PRN PO CONSTIPATION Last administered on 09:17; Admin Dose 20 GM; Start 05/20/17 at 04:00 Lidocaine (Xylocaine (Viscous)) 15 ml QID PRN PO st Last administered on 14:57; Admin Dose 15 ML; Start 05/20/17 at 06:00 Phenol (Cepastat Lozenge) 1 lozenge Q1H PRN [place] SORE THROAT Last administered on 05/20/17 20:32; Admin Dose 1 LOZENGE; Start 05/20/17 at 06:00 Colchicine (Colchicine) 0.3 mg BID PO Last administered on 05/21/17 11:03; Admin Dose 0.3 MG; Start 05/20/17 at 14:00 Sodium Biphosphate/ Sodium Phosphate (Fleet Enema) 133 ml DAILY PRN [place] CONSTIPATION Last administered on 05/20/17 21:42; Admin Dose 133 ML; Start at 20:00 Eye Lubricant (Artificial Tears Oph) 2 drop Q6H PRN BOTH EYES DRY EYES Last administered on 05/21/17 14:05; Admin Dose 2 DROP; Start 05/21/17 at 13:30 Aspirin (Aspirin) 81 mg DAILY PO ; Start 05/22/17 at 09:00 PREM FISCHER MD May 21, 2017 17:33
[2017-05-21] MEDS: ZOLPIDEM 5 MG TAB PO PRN (22:28)
[2017-05-22] VITALS (11 sets, daily range): BP systolic 107–140; BP diastolic 51–76; PULSE 79–91; RESP 17–19
[2017-05-22] MEDS: ALBUTEROL/IPRATROPIUM (NEB) 3 ML AMP HHN SCH ×6 (01:11→20:09)
[2017-05-22 08:51] LABS: BASOPHILS % 0.3 % (0.0-2.0); EOSINOPHILS # 0.2 10^3/ul (0.0-0.5); EOSINOPHILS % 1.9 % (0.0-7.0); HEMATOCRIT 28.4 % (37.0-47.0); HEMOGLOBIN 8.4 g/dl (12.0-16.0); LYMPHOCYTES # 0.6 10^3/ul (0.8-2.9); LYMPHOCYTES % 6.7 % (15.0-51.0); MEAN CORPUSCULAR HEMOGLOBIN 29.2 pg (29.0-33.0); MEAN CORPUSCULAR HGB CONC 29.6 g/dl (32.0-37.0); MEAN CORPUSCULAR VOLUME 98.6 fl (82.0-101.0); MEAN PLATELET VOLUME 11.1 fl (7.4-10.4); MONOCYTE # 0.8 10^3/ul (0.3-0.9); MONOCYTES % 8.3 % (0.0-11.0); NEUTROPHIL # 7.6 10^3/ul (1.6-7.5); PLATELET COUNT 151 10^3/UL (140-415); RED BLOOD COUNT 2.88 10^6/ul (4.20-5.40); RED CELL DISTRIBUTION WIDTH 14.5 % (11.5-14.5); WHITE BLOOD COUNT 9.4 10^3/ul (4.8-10.8)
[2017-05-22] MEDS ORDERED: ASPIRIN 81 MG TAB PO SCH (09:00)
[2017-05-22] MEDS: CITRIC ACID/SODIUM CITRATE 15 ML CUP PO SCH ×3 (09:00→20:09)
[2017-05-22 09:18] LABS: ALBUMIN 3.7 g/dl (3.3-4.9); ALBUMIN/GLOBULIN RATIO 1.37; BILIRUBIN,INDIRECT 0.4 mg/dl (0-1.1); BILIRUBIN,TOTAL 0.4 mg/dl (0.2-1.3); CALCIUM 8.6 mg/dl (8.4-10.2); CREATININE 1.38 mg/dl (0.44-1.00); POTASSIUM 4.2 mmol/L (3.5-5.1); TOTAL PROTEIN 6.4 g/dl (6.1-8.1)
--- NOTE | 2017-05-22 10:22 | CONS ---
Date/Time of Note Date/Time of Note DATE: 05/22/17 TIME: 10:20 Assessment/Plan Assessment/Plan Additional Assessment/Plan 1. 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 acute CHF exacerbation, acute on chronic, Systolic and diastolic 3. Acute Hypoxemic respiratory failure S/p ICU and ventilator care 4. Large pericardial effusino s/p pericardiocentesis 850cc drained on 05/15/17 5. Septic shock due to UIT, urine cx grew E.coli and Enterobacter 5. atrial firbillatino with RVR on amiodarone 6. 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 h/o HTN 8. H/o DM II 9. H/o HL 10.. Anemia of CKD< with iron deficiency - on IV iron with epogen Plan: Started on HD last week and pt has 5 sessions of HD so far, today her cr stable , K stable, she is making good urine, no plan for HD today, d/c decker catheter start lasix 20mg IV BID if renal functions remains stable by tomorrow then we will switch her to PO lasix and D/c pee catheter S/P pericardiocentesis by cardiology renal US c/w medical renal disease on Epogen for anemia of chronic renal disease - Ok to transfer to [facility] if pt has bed available Consultation Date/Type/Reason Admit Date/Time May 11, 2017 at 13:02 Initial Consult Date 05/12/17 Type of Consultation: NEPHROLOGY Referring Provider: TAWANA DALY MD 24 HR Interval Summary Free Text/Dictation plan for barium swallow Exam/Review of Systems Vital Signs Vitals Vital Signs Date Time Temp Pulse Resp B/P Pulse Ox O2 Delivery O2 Flow Rate FiO2 05/22/17 09:33 79 05/22/17 08:50 2.0 05/22/17 08:30 Nasal Cannula 05/22/17 08:02 98.3 17 113/57 98 Intake and Output 05/21/17 05/21/17 05/22/17 15:00 23:00 07:00 Intake Total 350 ml Output Total 650 ml Balance -300 ml Exam Constitutional: alert Neck: jvd, other (Right IJ Pee catheter ) Respiratory: congested cough, crackles/rales, diminished breath sounds Cardiovascular: irregular rhythm, nl pulses, regular rate and rhythm Gastrointestinal: non-tender, soft Musculoskeletal: swelling (1-2+ pitting edema ) Extremities: normal pulses Neurological: TRAFFIC LAW ATTORNEY II-XII intact Skin: nl turgor Results Result Diagram: 05/22/17 0745 05/22/17 0745 Results 24 hrs Laboratory Tests Test 05/22/17 07:45 White Blood Count 9.4 # Red Blood Count 2.88 L Hemoglobin 8.4 L Hematocrit 28.4 L Mean Corpuscular Volume 98.6 Mean Corpuscular Hemoglobin 29.2 Mean Corpuscular Hemoglobin Concent 29.6 L Red Cell Distribution Width 14.5 Platelet Count 151 # Mean Platelet Volume 11.1 H Neutrophils % 81.0 H Lymphocytes % 6.7 L Monocytes % 8.3 Eosinophils % 1.9 Basophils % 0.3 Nucleated Red Blood Cells % 0.0 Neutrophils # 7.6 H Lymphocytes # 0.6 L Monocytes # 0.8 Eosinophils # 0.2 Basophils # 0.0 Nucleated Red Blood Cells # 0.0 Sodium Level 141 Potassium Level 4.2 Chloride Level 100 Carbon Dioxide Level 32 H Anion Gap 13 Blood Urea Nitrogen 47 H Creatinine 1.38 H Glucose Level 135 Calcium Level 8.6 Total Bilirubin 0.4 Direct Bilirubin 0.00 Indirect Bilirubin 0.4 Aspartate Amino Transf (AST/SGOT) 50 H Alanine Aminotransferase (ALT/SGPT) 59 Alkaline Phosphatase 89 Total Protein 6.4 Albumin 3.7 Globulin 2.70 Albumin/Globulin Ratio 1.37 Medications Medications Current Medications Acetaminophen/ Hydrocodone Bitart ([place] (5/325)) 1 tab Q6H PRN PO MODERATE PAIN LEVEL 4-6 Last administered on 05/20/17 10:40; Admin Dose 1 TAB; Start 05/11/17 at 15:30 Zolpidem Tartrate (Ambien) 5 mg QHS PRN PO SLEEP Last administered on 22:28; Admin Dose 5 MG; Start 05/11/17 at 15:30 Heparin Sodium (Porcine) (Heparin (5000 Units/0.5 ml)) 5,000 unit Q12 SC Last administered on 05/14/17 20:32; Admin Dose 5,000 UNIT; Start 05/12/17 at 21: 00; Status Future Hold Nitroglycerin 1 tab 1 tab Q5M PRN SL ANGINA; Start 05/14/17 at 02:00 Diltiazem HCl (Cardizem-D5W 125 Mg/125 ml Drip) 125 ml @ 5 mls/hr TITRATE IV ; Start 05/14/17 at 19:30 IV Flush (NS 10 ml) 10 ml PRN PRN IV IV PROTOCOL; Start 05/15/17 at 14:30 Morphine Sulfate (morphine) 1 mg Q2 PRN IV PAIN NOT RELIEVED BY OTHERS Last administered on 05/19/17 21:38; Admin Dose 1 MG; Start 05/15/17 at 15:30 Citric Acid/ Sodium Citrate (Bicitra) 30 ml TID PO Last administered on 20:32; Admin Dose 30 ML; Start 05/17/17 at 09:00 Epoetin [place] (Epogen (Esrd)) 6,000 units TuThSa@17 SC Last administered on 17:41; Admin Dose 6,000 UNITS; Start 05/19/17 at 17:00 Promethazine HCl/ Codeine (Phenergan/ Codeine) 5 ml Q4H PRN PO COUGH Last administered on 05/20/17 20:31; Admin Dose 5 ML; Start 05/19/17 at 14:30 Lactulose (Enulose) 20 gm Q6 PRN PO CONSTIPATION Last administered on 09:17; Admin Dose 20 GM; Start 05/20/17 at 04:00 Lidocaine (Xylocaine (Viscous)) 15 ml QID PRN PO st Last administered on 19:37; Admin Dose 15 ML; Start 05/20/17 at 06:00 Phenol (Cepastat Lozenge) 1 lozenge Q1H PRN [place] SORE THROAT Last administered on 05/20/17 20:32; Admin Dose 1 LOZENGE; Start 05/20/17 at 06:00 Colchicine (Colchicine) 0.3 mg BID PO Last administered on 05/21/17 21:01; Admin Dose 0.3 MG; Start 05/20/17 at 14:00 Sodium Biphosphate/ Sodium Phosphate (Fleet Enema) 133 ml DAILY PRN [place] CONSTIPATION Last administered on 05/20/17 21:42; Admin Dose 133 ML; Start at 20:00 Eye Lubricant (Artificial Tears Oph) 2 drop Q6H PRN BOTH EYES DRY EYES Last administered on 05/21/17 14:05; Admin Dose 2 DROP; Start 05/21/17 at 13:30 Aspirin (Aspirin) 81 mg DAILY PO Last administered on 05/22/17 09:11; Admin Dose 81 MG; Start 05/22/17 at 09:00 PREM FISCHER MD May 22, 2017 10:22
[2017-05-22] MEDS ORDERED: FUROSEMIDE 20 MG INJ IV ONE (10:30)
[2017-05-22] MEDS: COLCHICINE 0.6 MG TAB PO SCH ×2 (10:55→20:07)
[2017-05-22] MEDS: LIDOCAINE 2% VISC 15 ML CUP PO PRN ×2 (10:55→18:32)
--- NOTE | 2017-05-22 13:27 | RADRPT ---
PROCEDURE: Video-fluoroscopy swallowing study. CLINICAL INDICATION: Dysphagia. TECHNIQUE: Fluoroscopic guided video swallowing study was done in conjunction with the speech ther apist. The study was confined to the oral, pharyngeal, and cervical phases of the swallowing mechani sm. 2.5 minutes of fluoroscopy time was used. 14 series of images were obtained. COMPARISON: No prior study is available for comparison. 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 There is penetration during swallowing. There is no evidence of aspi ration during the exam. IMPRESSION: 1. Cricopharyngeal bar. 2. Penetration during swallowing. 3. No aspiration during swallowing. 4. Please refer to the speech therapist's recommendations for future feedings. RPTAT: QQ .Felipe Salinas MD, Date Time Electronically viewed and signed by .Felipe Salinas MD, on 05/22/2017 13:27 .R/
--- NOTE | 2017-05-22 16:07 | PN ---
Date/Time of Note Date/Time of Note DATE: 05/22/17 TIME: 16:05 Assessment/Plan VTE Prophylaxis VTE Prophylaxis Intervention: LMWH Lines/Catheters IV Catheter Type (from Nrs): PICC Line Urinary Cath still in place: Yes Assessment/Plan Chief Complaint/Hosp Course 82 yo female with h/o chronic diastolic CHF, CKD II, MDS, DMII, obesity with acute diastolic CHF exacerbation, BIRGIT and pericardial effusion with pre-[facility] report concerning for tamponade Acute on chronic diastolic CHF exacerbation w pericardial effusion: - Likely from total body overload 2/2 cardiorenal syndrome vs pericarditis: continue colchicine for possible pericarditis, continue to assess need for HD daily per Dr Villalba CKD III now BIRGIT: - Monitor creatinine/BUN off of HD. Further HD per Dr Villalba MDS: - EPO per schedule DMII: - AISS Telemetry monitoring Problems: Subjective 24 Hr Interval Summary Free Text/Dictation Renal funciton improving, holding HD Good UOP, creaitnine going down though BUN rising Awiating tranfser to C-S Exam/Review of Systems Vital Signs Vitals Vital Signs Date Time Temp Pulse Resp B/P Pulse Ox O2 Delivery O2 Flow Rate FiO2 05/22/17 15:52 86 20 98 Nasal Cannula 2.0 05/22/17 15:35 98.5 125/59 Intake and Output 05/21/17 05/21/17 05/22/17 15:00 23:00 07:00 Intake Total 350 ml Output Total 650 ml Balance -300 ml Results Result Diagram: 05/22/17 0745 05/22/17 0745 Results 24 hrs Laboratory Tests Test 05/22/17 07:45 White Blood Count 9.4 # Red Blood Count 2.88 L Hemoglobin 8.4 L Hematocrit 28.4 L Mean Corpuscular Volume 98.6 Mean Corpuscular Hemoglobin 29.2 Mean Corpuscular Hemoglobin Concent 29.6 L Red Cell Distribution Width 14.5 Platelet Count 151 # Mean Platelet Volume 11.1 H Neutrophils % 81.0 H Lymphocytes % 6.7 L Monocytes % 8.3 Eosinophils % 1.9 Basophils % 0.3 Nucleated Red Blood Cells % 0.0 Neutrophils # 7.6 H Lymphocytes # 0.6 L Monocytes # 0.8 Eosinophils # 0.2 Basophils # 0.0 Nucleated Red Blood Cells # 0.0 Sodium Level 141 Potassium Level 4.2 Chloride Level 100 Carbon Dioxide Level 32 H Anion Gap 13 Blood Urea Nitrogen 47 H Creatinine 1.38 H Glucose Level 135 Calcium Level 8.6 Total Bilirubin 0.4 Direct Bilirubin 0.00 Indirect Bilirubin 0.4 Aspartate Amino Transf (AST/SGOT) 50 H Alanine Aminotransferase (ALT/SGPT) 59 Alkaline Phosphatase 89 Total Protein 6.4 Albumin 3.7 Globulin 2.70 Albumin/Globulin Ratio 1.37 Medications Medications Current Medications Acetaminophen/ Hydrocodone Bitart ([place] (5/325)) 1 tab Q6H PRN PO MODERATE PAIN LEVEL 4-6 Last administered on 05/20/17 10:40; Admin Dose 1 TAB; Start 05/11/17 at 15:30 Zolpidem Tartrate (Ambien) 5 mg QHS PRN PO SLEEP Last administered on 22:28; Admin Dose 5 MG; Start 05/11/17 at 15:30 Heparin Sodium (Porcine) (Heparin (5000 Units/0.5 ml)) 5,000 unit Q12 SC Last administered on 05/14/17 20:32; Admin Dose 5,000 UNIT; Start 05/12/17 at 21: 00; Status Future Hold Nitroglycerin 1 tab 1 tab Q5M PRN SL ANGINA; Start 05/14/17 at 02:00 Diltiazem HCl (Cardizem-D5W 125 Mg/125 ml Drip) 125 ml @ 5 mls/hr TITRATE IV ; Start 05/14/17 at 19:30 IV Flush (NS 10 ml) 10 ml PRN PRN IV IV PROTOCOL; Start 05/15/17 at 14:30 Morphine Sulfate (morphine) 1 mg Q2 PRN IV PAIN NOT RELIEVED BY OTHERS Last administered on 05/19/17 21:38; Admin Dose 1 MG; Start 05/15/17 at 15:30 Citric Acid/ Sodium Citrate (Bicitra) 30 ml TID PO Last administered on 20:32; Admin Dose 30 ML; Start 05/17/17 at 09:00 Epoetin [place] (Epogen (Esrd)) 6,000 units TuThSa@17 SC Last administered on 17:41; Admin Dose 6,000 UNITS; Start 05/19/17 at 17:00 Promethazine HCl/ Codeine (Phenergan/ Codeine) 5 ml Q4H PRN PO COUGH Last administered on 05/20/17 20:31; Admin Dose 5 ML; Start 05/19/17 at 14:30 Lactulose (Enulose) 20 gm Q6 PRN PO CONSTIPATION Last administered on 09:17; Admin Dose 20 GM; Start 05/20/17 at 04:00 Lidocaine (Xylocaine (Viscous)) 15 ml QID PRN PO st Last administered on 10:55; Admin Dose 15 ML; Start 05/20/17 at 06:00 Phenol (Cepastat Lozenge) 1 lozenge Q1H PRN [place] SORE THROAT Last administered on 05/20/17 20:32; Admin Dose 1 LOZENGE; Start 05/20/17 at 06:00 Colchicine (Colchicine) 0.3 mg BID PO Last administered on 05/22/17 10:55; Admin Dose 0.3 MG; Start 05/20/17 at 14:00 Sodium Biphosphate/ Sodium Phosphate (Fleet Enema) [address] CONSTIPATION Last administered on 05/20/17 21:42; Admin Dose 133 ML; Start at 20:00 Eye Lubricant (Artificial Tears Oph) 2 drop Q6H PRN BOTH EYES DRY EYES Last administered on 05/21/17 14:05; Admin Dose 2 DROP; Start 05/21/17 at 13:30 Aspirin (Aspirin) 81 mg DAILY PO Last administered on 05/22/17 09:11; Admin Dose 81 MG; Start 05/22/17 at 09:00 TAWANA DALY MD May 22, 2017 16:07
[2017-05-22] MEDS: EPOETIN 3000 UNITS/1 ML INJ (ESRD) SC SCH (16:19)
[2017-05-22] MEDS: CEPASTAT LOZENGE MT PRN ×2 (16:19→20:00)
--- NOTE | 2017-05-22 16:57 | CONS ---
Date/Time of Note Date/Time of Note DATE: 05/22/17 TIME: 16:55 Assessment/Plan Assessment/Plan Additional Assessment/Plan 1. Pericardial effusion- now improved BP/hemodynamics transferred to tele - not in tamponade by exam 2. Shortness of breath, likely a combination of possible pneumonia as well as volume overload, congestive heart failure and pericardial effusion- improved 3. Hypotension-resolved s/p pericardiocentesis 4. Abnormal electrocardiogram 5. Generalized body aches, question viral syndrome. 6. Diabetes mellitus. 7. Renal failure, acute on chronic. 8. Anemia-worsening 9. Leukocytosis. 10. Urinary tract infection- on anti-bx, con't med rx 11. UTI 12. PAF- s/p amio IV with return to SR Consultation Date/Type/Reason Admit Date/Time May 11, 2017 at 13:02 Initial Consult Date 05/12/17 Type of Consultation: NEPHROLOGY Referring Provider: TAWANA DALY MD 24 HR Interval Summary Free Text/Dictation No acute events - BP in good range - [employer] CP now, will monitor clinically ROS: No fever, no chills, no nausea, no vomiting, no diarrhea/constipation No recent weight changes No chest pain, no PND, no orthopnea No dizziness, blurred vision No thirst, no heat or cold intolerance Exam/Review of Systems Vital Signs Vitals Vital Signs Date Time Temp Pulse Resp B/P Pulse Ox O2 Delivery O2 Flow Rate FiO2 05/22/17 16:25 81 05/22/17 15:52 20 98 Nasal Cannula 2.0 05/22/17 15:35 98.5 125/59 Intake and Output 05/21/17 05/21/17 05/22/17 15:00 23:00 07:00 Intake Total 350 ml Output Total 650 ml Balance -300 ml Exam General: WN/WD/NAD, AOx 2-3 HEENT: Unicetric/atraumatic/EOMI (follow commands) NECK: JVD elevated, no thyromegaly Lymph: no lymphadenopathy HEART: regular with no S3, II/ systolic murmur at apex LUNGS: Coarse sounds ABD: soft, NT, ND, +BS : Intact Neuro: non focal SKIN: chronic changes EXT: trace edema Results Result Diagram: 05/22/17 0745 05/22/17 0745 Results 24 hrs Laboratory Tests Test 05/22/17 07:45 White Blood Count 9.4 # Red Blood Count 2.88 L Hemoglobin 8.4 L Hematocrit 28.4 L Mean Corpuscular Volume 98.6 Mean Corpuscular Hemoglobin 29.2 Mean Corpuscular Hemoglobin Concent 29.6 L Red Cell Distribution Width 14.5 Platelet Count 151 # Mean Platelet Volume 11.1 H Neutrophils % 81.0 H Lymphocytes % 6.7 L Monocytes % 8.3 Eosinophils % 1.9 Basophils % 0.3 Nucleated Red Blood Cells % 0.0 Neutrophils # 7.6 H Lymphocytes # 0.6 L Monocytes # 0.8 Eosinophils # 0.2 Basophils # 0.0 Nucleated Red Blood Cells # 0.0 Sodium Level 141 Potassium Level 4.2 Chloride Level 100 Carbon Dioxide Level 32 H Anion Gap 13 Blood Urea Nitrogen 47 H Creatinine 1.38 H Glucose Level 135 Calcium Level 8.6 Total Bilirubin 0.4 Direct Bilirubin 0.00 Indirect Bilirubin 0.4 Aspartate Amino Transf (AST/SGOT) 50 H Alanine Aminotransferase (ALT/SGPT) 59 Alkaline Phosphatase 89 Total Protein 6.4 Albumin 3.7 Globulin 2.70 Albumin/Globulin Ratio 1.37 Medications Medications Current Medications Acetaminophen/ Hydrocodone Bitart ([place] (5/325)) 1 tab Q6H PRN PO MODERATE PAIN LEVEL 4-6 Last administered on 05/20/17 10:40; Admin Dose 1 TAB; Start 05/11/17 at 15:30 Zolpidem Tartrate (Ambien) 5 mg QHS PRN PO SLEEP Last administered on 22:28; Admin Dose 5 MG; Start 05/11/17 at 15:30 Heparin Sodium (Porcine) (Heparin (5000 Units/0.5 ml)) 5,000 unit Q12 SC Last administered on 05/14/17 20:32; Admin Dose 5,000 UNIT; Start 05/12/17 at 21: 00; Status Future Hold Nitroglycerin 1 tab 1 tab Q5M PRN SL ANGINA; Start 05/14/17 at 02:00 Diltiazem HCl (Cardizem-D5W 125 Mg/125 ml Drip) 125 ml @ 5 mls/hr TITRATE IV ; Start 05/14/17 at 19:30 IV Flush (NS 10 ml) 10 ml PRN PRN IV IV PROTOCOL; Start 05/15/17 at 14:30 Morphine Sulfate (morphine) 1 mg Q2 PRN IV PAIN NOT RELIEVED BY OTHERS Last administered on 05/19/17 21:38; Admin Dose 1 MG; Start 05/15/17 at 15:30 Citric Acid/ Sodium Citrate (Bicitra) 30 ml TID PO Last administered on 20:32; Admin Dose 30 ML; Start 05/17/17 at 09:00 Epoetin [place] (Epogen (Esrd)) 6,000 units TuThSa@17 SC Last administered on 16:19; Admin Dose 6,000 UNITS; Start 05/19/17 at 17:00 Promethazine HCl/ Codeine (Phenergan/ Codeine) 5 ml Q4H PRN PO COUGH Last administered on 05/20/17 20:31; Admin Dose 5 ML; Start 05/19/17 at 14:30 Lactulose (Enulose) 20 gm Q6 PRN PO CONSTIPATION Last administered on 09:17; Admin Dose 20 GM; Start 05/20/17 at 04:00 Lidocaine (Xylocaine (Viscous)) 15 ml QID PRN PO st Last administered on 10:55; Admin Dose 15 ML; Start 05/20/17 at 06:00 Phenol (Cepastat Lozenge) 1 lozenge Q1H PRN MT SORE THROAT Last administered on 05/22/17 16:19; Admin Dose 1 LOZENGE; Start 05/20/17 at 06:00 Colchicine (Colchicine) 0.3 mg BID PO Last administered on 05/22/17 10:55; Admin Dose 0.3 MG; Start 05/20/17 at 14:00 Sodium Biphosphate/ Sodium Phosphate (Fleet Enema) 133 ml DAILY PRN NM CONSTIPATION Last administered on 05/20/17 21:42; Admin Dose 133 ML; Start at 20:00 Eye Lubricant (Artificial Tears Oph) 2 drop Q6H PRN BOTH EYES DRY EYES Last administered on 05/21/17 14:05; Admin Dose 2 DROP; Start 05/21/17 at 13:30 Aspirin (Aspirin) 81 mg DAILY PO Last administered on 05/22/17 09:11; Admin Dose 81 MG; Start 05/22/17 at 09:00 BEN BARBA MD May 22, 2017 16:57
[2017-05-22] MEDS ORDERED: FUROSEMIDE 20 MG INJ IV SCH (18:00)
[2017-05-22] MEDS ORDERED: Colchicine PO (19:27)
--- NOTE | 2017-05-22 19:32 | DS ---
Date/Time of Note Date/Time of Note DATE: 05/22/17 TIME: 19:28 Discharge Summary Admission/Discharge Info Admit Date/Time May 11, 2017 at 13:02 Discharge Date/Time Patient Condition: Fair Hx of Present Illness 82 yo female with h/o chronic systolic CHF, CKD III, DMII, MDS who presents with SOB Patient says she received the flu shot 2 weeks ago. Shortly thereafter she developd flu like symptosm with cough, congestion, body aches. These symptoms have gradually subsided but she has developed progressive edema and SOB since then. She is cared for in the [facility] system and had outpatient CXR ordered there, however today was so SOB she called 911 and was taken here. SOB is present on ambulation but generally feels well at rest. No CP or angina. No cough or sputum production. Hospital Course 82 yo female with h/o chronic diastolic CHF, CKD II, MDS, DMII, obesity with acute diastolic CHF exacerbation. Pateint was mildly hypoxic on admission but stable from respiratory and hemodynamic standpoints. She received IV lasix with minimal response. Creatinine talia from 3 to 5. Echo showed moderate to large pleural effusion with mild early tamponade. She was offered HD and pericardiocentesis but initially refused. Her hemodynamics and respiratory status worsened to the point that she required intubation. HD with UF (about 9 L off) and pericardiocentesis (1 L out) were eventually performed. Her hemodynamics and respiratory status improved markedly. SHe was extubated. Continued on HD but has not had any HD since last Sunday. Urine output has been very good and creatinine is now back down to 1.2. She requested transfer to [facility] which was arranged. It is unclear whether then patient still will require HD, this will need to be closely monitored at - She has also been started empirically on colchicine for pericarditis ELLY 1:160 here, rheumatologic consultation can be considered Home Meds Active Scripts [Colchicine] 0.6 MG TAB No Conflict Check, 0.3 MG PO BID Prov:TAWANA DALY MD 05/22/17 Reported Medications Salmeterol Xinaf/Fluticasone* (Advair*) 250-50 Diskus Inhaler, 1 INH INHALATION BID, #1 INHALER 05/11/17 Allopurinol* (Allopurinol*) 100 Mg Tablet, 100 MG PO DAILY, TAB 05/11/17 Discontinued Reported Medications Cholecalciferol* (Vitamin D3*) 1,000 Unit Tablet, 1000 UNIT PO DAILY, TAB 05/11/17 Valsartan* (Diovan*) 160 Mg Tablet, 160 MG PO DAILY, TAB 05/11/17 Furosemide (Lasix) 20 Mg Tab, 20 MG PO DAILY 10/20/12 Aspirin/Calcium Carbonate/Mag (Aspir-Mox 325 Mg Tablet) 325 Mg Tablet, 325 MG PO DAILY 10/20/12 Atorvastatin (Lipitor) 40 Mg Tablet, 40 MG PO DAILY 10/20/12 Pioglitazone Hcl* (Actos*) 15 Mg Tablet, 15 MG PO DAILY 10/20/12 Primary Care Provider Andre Moreno Time spent on discharge: > 30 minutes Pending Labs Laboratory Tests Test 05/22/17 07:45 White Blood Count 9.410^3/ul (4.8-10.8) Red Blood Count 2.8810^6/ul (4.20-5.40) Hemoglobin 8.4g/dl (12.0-16.0) Hematocrit 28.4% (37.0-47.0) Mean Corpuscular Volume 98.6fl (82.0-101.0) Mean Corpuscular Hemoglobin 29.2pg (29.0-33.0) Mean Corpuscular Hemoglobin Concent 29.6g/dl (32.0-37.0) Red Cell Distribution Width 14.5% (11.5-14.5) Platelet Count 04060^3/UL (140-415) Mean Platelet Volume 11.1fl (7.4-10.4) Neutrophils % 81.0% (39.0-77.0) Lymphocytes % 6.7% (15.0-51.0) Monocytes % 8.3% (0.0-11.0) Eosinophils % 1.9% (0.0-7.0) Basophils % 0.3% (0.0-2.0) Nucleated Red Blood Cells % 0.0/100WBC (0.0-0.0) Neutrophils # 7.610^3/ul (1.6-7.5) Lymphocytes # 0.610^3/ul (0.8-2.9) Monocytes # 0.810^3/ul (0.3-0.9) Eosinophils # 0.210^3/ul (0.0-0.5) Basophils # 0.010^3/ul (0.0-0.1) Nucleated Red Blood Cells # 0.010^3/ul (0.0-0.0) Sodium Level 141mmol/L (135-144) Potassium Level 4.2mmol/L (3.5-5.1) Chloride Level 100mmol/L (97-110) Carbon Dioxide Level 32mmol/L (21-31) Anion Gap 13 (8-16) Blood Urea Nitrogen 47mg/dl (7-20) Creatinine 1.38mg/dl (0.44-1.00) Glucose Level 135mg/dl (70-220) Calcium Level 8.6mg/dl (8.4-10.2) Total Bilirubin 0.4mg/dl (0.2-1.3) Direct Bilirubin 0.00mg/dl (0.00-0.20) Indirect Bilirubin 0.4mg/dl (0-1.1) Aspartate Amino Transf (AST/SGOT) 50IU/L (15-46) Alanine Aminotransferase (ALT/SGPT) 59IU/L (13-69) Alkaline Phosphatase 89IU/L (42-121) Total Protein 6.4g/dl (6.1-8.1) Albumin 3.7g/dl (3.3-4.9) Globulin 2.70g/dl (1.3-3.2) Albumin/Globulin Ratio 1.37 TAWANA DALY MD May 22, 2017 19:32
[2017-05-23] MEDS: ALBUTEROL/IPRATROPIUM (NEB) 3 ML AMP HHN SCH (01:00)
== END 2017-05-22 23:36 | disposition short-term general hospital (02) | DRG 291 ==
LOC: E/R 10:50 → TEL 13:02 → ICU 05-14 03:55 → MS4 05-18 00:01
PROVIDERS: ADMIT Internal Medicine; ATTEND Internal Medicine
PROC: 5A1D70Z Performance of Urinary Filtration, Intermittent, Less than 6 Hours Per Day (ICD-10-PCS; 2017-05-14)
PROC: 05HM33Z Insertion of Infusion Device into Right Internal Jugular Vein, Percutaneous Approach (ICD-10-PCS; 2017-05-14)
PROC: 5A1935Z Respiratory Ventilation, Less than 24 Consecutive Hours (ICD-10-PCS; 2017-05-15)
PROC: 0BH17EZ Insertion of Endotracheal Airway into Trachea, Via Natural or Artificial Opening (ICD-10-PCS; 2017-05-15)
PROC: 02HV33Z Insertion of Infusion Device into Superior Vena Cava, Percutaneous Approach (ICD-10-PCS; 2017-05-15)
PROC: 5A09357 Assistance with Respiratory Ventilation, Less than 24 Consecutive Hours, Continuous Positive Airway Pressure (ICD-10-PCS; 2017-05-15)
PROC: 0W9D30Z Drainage of Pericardial Cavity with Drainage Device, Percutaneous Approach (ICD-10-PCS; principal; 2017-05-15 16:00)
PROC: 30243N1 Transfusion of Nonautologous Red Blood Cells into Central Vein, Percutaneous Approach (ICD-10-PCS; 2017-05-16)
DX: I13.0 Hypertensive heart and chronic kidney disease with heart failure and stage 1 through stage 4 chronic kidney disease, or unspecified chronic kidney disease (principal); I50.43 Acute on chronic combined systolic (congestive) and diastolic (congestive) heart failure; R65.21 Severe sepsis with septic shock; A41.9 Sepsis, unspecified organism; N17.9 Acute kidney failure, unspecified; G93.49 Other encephalopathy; J96.02 Acute respiratory failure with hypercapnia; J96.01 Acute respiratory failure with hypoxia; N39.0 Urinary tract infection, site not specified; N18.3 Chronic kidney disease, stage 3 (moderate); I31.3 Pericardial effusion (noninflammatory); I31.9 Disease of pericardium, unspecified; B96.20 Unspecified Escherichia coli [E. coli] as the cause of diseases classified elsewhere; E11.22 Type 2 diabetes mellitus with diabetic chronic kidney disease; I70.203 Unspecified atherosclerosis of native arteries of extremities, bilateral legs; D63.1 Anemia in chronic kidney disease; E87.5 Hyperkalemia; E87.70 Fluid overload, unspecified; I48.91 Unspecified atrial fibrillation; E66.9 Obesity, unspecified; E11.21 Type 2 diabetes mellitus with diabetic nephropathy; D46.9 Myelodysplastic syndrome, unspecified; B96.89 Other specified bacterial agents as the cause of diseases classified elsewhere; Z68.35 Body mass index [BMI] 35.0-35.9, adult
CPT/HCPCS: 31500; 33010; 36415; 36430; 36569; 36600; 71010; 74230; 76775; 76937; 80048; 80053; 81001; 82042; 82550; 82553; 82728; 82803; 82962; 83036; 83540; 83605; 83735; 83880; 84100; 84157; 84436; 84443; 84479; 84484; 85025; 85610; 85730; 86021; 86038; 86160; 86850; 86900; 86901; 86920; 87040; 87070; 87086; 88104; 88305; 89051; 90935; 92526; 92610; 92611; 93005; 93306; 93308; 94002; 94003; 94640; 94660; 94770; 96374; 96375; 97110; 97116; 97161; 97530; J1940; C1752; J0282; J0696; J0886; J1642; J1644; J2270; J2916; J3010; J3480; J7060; P9016; P9047; Q9967